=== PATIENT | female | born 1955 | race African-American/Black ===

== ENCOUNTER 2016-12-08 18:35 | Emergency (ER) | payer OTHER ==
[~2016-12-08] VITALS: Ht 162.6 cm; Wt 68.0 kg
[~2016-12-08 18:35] MED LIST: ACETAMINOPHEN-1 EAC1 ORAL; ALBUTEROL SULF8.5 GM INH; ASPIRIN325 MG ORAL; AZITHROMYCIN250 MG ORAL; DIOVAN HCT 3201 EAC1 ORAL; FUROSEMIDE80 MG ORAL; PREDNISONE20 MG ORAL
[2016-12-08] MEDS ORDERED: HYDROmorphone 1mg/ml Carpuject IVP ONE ×2 (20:00→21:45)
[2016-12-08 21:25] LABS: BASOPHILS % (AUTO) 1.7 % (0.0-2.0); EOSINOPHILS % (AUTO) 0.6 % (0.0-3.0); LYMPHOCYTES % (AUTO) 29.5 % (20.0-45.0); MEAN CORPUSCULAR HGB CONC 31.6 G/DL (32.0-36.0); MEAN CORPUSCULAR VOLUME 73 FL (80-99); MEAN PLATELET VOLUME 6.4 FL (6.5-10.1); MONOCYTES % (AUTO) 5.2 % (1.0-10.0); PLATELET COUNT 414 K/UL (150-450); RED BLOOD COUNT 4.92 M/UL (4.20-5.40); RED CELL DISTRIBUTION WIDTH 17.3 % (11.6-14.8); WHITE BLOOD COUNT 9.7 K/UL (4.8-10.8)
[2016-12-08 21:44] LABS: ALANINE AMINOTRANSFERASE 29 U/L (3-33); ALBUMIN/GLOBULIN RATIO 1.1 (1.0-2.7); ANION GAP 12 (5-15); ASPARTATE AMINO TRANSFERASE 21 U/L (5-40); CALCIUM 8.7 mg/dL (8.6-10.2); CARBON DIOXIDE 26 mEQ/L (20-30); CHLORIDE 104 mEQ/L (98-107); CREATININE 0.9 mg/dL (0.5-0.9); GLOMERULAR FILTRATION RATE > 60 mL/min (>60); HEMOLYSIS 3; POTASSIUM 4.5 mEQ/L (3.4-4.9); SODIUM 142 mEQ/L (135-145); TOTAL PROTEIN 6.6 g/dL (6.6-8.7)
[2016-12-08] MEDS ORDERED: MAG-OX 400400 MG ORAL (22:27)
[2016-12-08] MEDS ORDERED: ACETAMINOPHEN325 M3 PO (22:27)
[2016-12-08] MEDS ORDERED: COZAAR50 MG ORAL (22:27)
[2016-12-08] MEDS ORDERED: OXYCODONE HCL10 MG ORAL (22:27)
[2016-12-08] MEDS ORDERED: PROTONIX40 MG ORAL (22:27)
[2016-12-08] MEDS ORDERED: GABAPENTIN300 MG ORAL (22:27)
[2016-12-08] MEDS ORDERED: MIRALAX17 G2 ORAL (22:27)
[2016-12-08] MEDS ORDERED: LIPITOR40 MG ORAL (22:32)
[2016-12-08] MEDS ORDERED: ATIVAN0.5 MG ORAL (22:32)
[2016-12-08] MEDS ORDERED: BACLOFEN10 MG ORAL (22:32)
[2016-12-08] MEDS ORDERED: BUDESONIDE0.5 MG/2 M IH (22:32)
[2016-12-08] MEDS ORDERED: DOXAZOSIN MESYLA1 MG ORAL (22:32)
[2016-12-08] MEDS ORDERED: FERROUS SULFAT325 MG ORAL (22:32)
[2016-12-08] MEDS ORDERED: DILAUDID 22 MG/1 M1 IM (22:32)
[2016-12-08] MEDS ORDERED: DUONEB 0.5-3(2.53 ML HHN (22:32)
[2016-12-08] MEDS ORDERED: CYCLOBENZAPRINE10 MG ORAL (22:32)
[2016-12-08] MEDS ORDERED: ASPIR 8181 MG ORAL (22:32)
[2016-12-08] MEDS ORDERED: LACTULOSE20 GM/301 ORAL (22:32)
[2016-12-08] MEDS ORDERED: BENADRYL25 MG ORAL (22:32)
[2016-12-08] MEDS ORDERED: DOCUSATE SODIU250 MG ORAL (22:32)
--- NOTE | 2016-12-08 23:03 | Emergency Room Report ---
History of Present Illness General Chief Complaint: Lower Extremity Injury Source: Patient Present Illness HPI 61-year-old female presents ED for evaluation. Patient sent from group home facility. PMD requested patient get MRI of her right lower extremity and right hip. Patient has chronic pain on the right leg unresponsive to pain medications. Patient states she had a fall 2 weeks ago. Patient states she's had multiple surgeries to her neck and back. Pain is a 10 out of 10, nonradiating, sharp. Unable to bear weight. PMD also requested for patient get PICC line removed. Patient has PICC line in her right chest. Patient states she is a hard stick. Needed for antibiotics. Patient states she was unaware that the PICC line would be removed today. Patient is refusing PICC line removal. Denies chest pain or shortness of breath. Denies fevers chills. No other aggravating relieving factors. Denies any other associated symptoms Allergies: Coded Allergies: MORPHINE (Verified Allergy, Intermediate, 07/23/13) Uncoded Allergies: pcn (Adverse Reaction, Mild, 07/23/13) Patient History Past Medical History: CHF Past Surgical History: other - neck and back surgery Pertinent Family History: none Social History: Denies: alcohol use, drug use, smoking Now: No Immunizations: UTD Reviewed Nursing 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: PMH: Agreed, PSxH: Agreed Nursing 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-PMH Hx Cardiac Problems: Yes - CHF Hx Hypertension: Yes - Recent neck and back surgery. Hx COPD: Yes Hx Gastrointestinal Problems: Yes - GERD History Of Psychiatric Problem: Yes - Anxiety Hx Cerebrovascular Accident: Yes Review of Systems All Other Systems: negative except mentioned in HPI Physical Exam Vital Signs Date Time Temp Pulse Resp B/P Pulse Ox O2 Delivery O2 Flow Rate FiO2 12/08/16 18:47 97.9 95 20 138/93 97 Room Air Sp02 EP Interpretation: reviewed, normal General Appearance: no apparent distress, alert, GCS 15, non-toxic Head: normocephalic Eyes: bilateral eye PERRL, bilateral eye normal inspection ENT: normal ENT inspection Neck: normal inspection Respiratory: chest non-tender, lungs clear, normal breath sounds, speaking full sentences, other - PICC Line R chest Cardiovascular #1: regular rate, rhythm, no edema Gastrointestinal: normal inspection Rectal: deferred Genitourinary: no CVA tenderness Musculoskeletal: tender - R hip Neurologic: alert, oriented x3, responsive, motor strength/tone normal, sensory intact, speech normal Psychiatric: judgement/insight normal, memory normal, mood/affect normal, no suicidal/homicidal ideation Skin: normal inspection Lymphatic: normal inspection Medical Decision Making Diagnostic Impression: Primary Impression: Drug-seeking behavior Additional Impression: Chronic pain Qualified Codes: G89.29 - Other chronic pain ER Course 61-year-old female sent here for MRI of the right hip right leg and right knee. Sent here to have PICC line removed. From group home facility Differential-fracture, dislocation, chronic pain, opioid dependence Patient placed on stretcher. After initial history, physical exam reveals a middle-aged female in mild distress. Patient has pain out of proportion to physical exam to the right leg and right hip. There is no crepitus. There is full range of motion. Patient states that she is getting Dilaudid at the facility without relief. Patient is refusing PICC line removal. Stating that she has a hard stick. states she needs it for antibiotics. I cannot remove PICC line without her consent we cannot facilitate MRI at this time of day. Patient was sent here in the evening. There is no reason for an emergent MRI at this time given that patient 's pain is chronic for weeks. CT of Pelvis and xray of R femur shows chronic issues but nothing acute I explained this to the group home. intermediate states that they are uncomfortable accepting the patient if she keeps the PICC line. We are unable to contact the PMD. After several hours the nurse practitioner for the physician contacted us. He is aware that we are not able to pull the PICC line and that MRI is unavailable at this time. No reason for admission. He agrees that patient can go back to the facility Patient required multiple rounds of pain medication but is still requesting more. Patient is clearly in opioid dependence Diagnosis-drug seeking behavior, chronic pain Stable and discharged to the group home facility. Followup with PMD. Return to ED if symptoms recur or worsen Labs Test 12/08/16 21:15 White Blood Count 9.7 K/UL (4.8-10.8) Red Blood Count 4.92 M/UL (4.20-5.40) Hemoglobin 11.3 G/DL (12.0-16.0) Hematocrit 35.9 % (37.0-47.0) Mean Corpuscular Volume 73 FL (80-99) Mean Corpuscular Hemoglobin 23.0 PG (27.0-31.0) Mean Corpuscular Hemoglobin Concent 31.6 G/DL (32.0-36.0) Red Cell Distribution Width 17.3 % (11.6-14.8) Platelet Count 414 K/UL (150-450) Mean Platelet Volume 6.4 FL (6.5-10.1) Neutrophils (%) (Auto) 63.0 % (45.0-75.0) Lymphocytes (%) (Auto) 29.5 % (20.0-45.0) Monocytes (%) (Auto) 5.2 % (1.0-10.0) Eosinophils (%) (Auto) 0.6 % (0.0-3.0) Basophils (%) (Auto) 1.7 % (0.0-2.0) Sodium Level 142 mEQ/L (135-145) Potassium Level 4.5 mEQ/L (3.4-4.9) Chloride Level 104 mEQ/L (98-107) Carbon Dioxide Level 26 mEQ/L (20-30) Anion Gap 12 (5-15) Blood Urea Nitrogen 24 mg/dL (7-23) Creatinine 0.9 mg/dL (0.5-0.9) Estimat Glomerular Filtration Rate > 60 mL/min (>60) Glucose Level 105 mg/dL (74-106) Calcium Level 8.7 mg/dL (8.6-10.2) Total Bilirubin 0.2 mg/dL (0.0-1.2) Aspartate Amino Transf (AST/SGOT) 21 U/L (5-40) Alanine Aminotransferase (ALT/SGPT) 29 U/L (3-33) Alkaline Phosphatase 69 U/L (35-104) Total Protein 6.6 g/dL (6.6-8.7) Albumin 3.5 g/dL (3.5-5.2) Globulin 3.1 g/dL Albumin/Globulin Ratio 1.1 (1.0-2.7) Other X-Ray Diagnostic Results Other X-Ray Diagnostic Results : X-Ray ordered: R femur # of Views/Limited Vs Complete: 3 View Indication: Pain EP Interpretation: Yes Interpretation: no dislocation, no soft tissue swelling, no fractures Impression: No acute disease Interpreting ER Provider: electronically signed by Jelani Loja MD CT/MRI/US Diagnostic Results CT/MRI/US Diagnostic Results : Imaging Test Ordered: CT Pelvis Impression no acute fx. chronic changes Last Vital Signs Date Time Temp Pulse Resp B/P Pulse Ox O2 Delivery O2 Flow Rate FiO2 12/08/16 20:40 97.8 12/08/16 18:47 95 20 138/93 97 Room Air Status: improved Disposition: HOME, SELF-CARE Condition: Stable Referrals: [facility] (PCP) JELANI LOJA M.D. Dec 08, 2016 23:03
[2016-12-09 00:04] VITALS: BP 130/80
--- NOTE | 2016-12-09 09:32 | Diagnostic Imaging Report ---
Indication: PAIN fall 2 weeks ago Technique: Noncontrast spiral acquisitions obtained through the pelvis. Multiplanar reconstructions generated. Total dose length product 386 mGycm. CTDIvol(s) 13 mGy. Dose reduction achieved using automated exposure control Comparison: None Findings: There is marked deformity of the right femoral head, with considerable flattening. There is lateral subluxation of the femoral head, and near complete obliteration of the superior joint space. There is associated deformity and irregularity of the acetabulum as well as. Extensive subchondral cysts are demonstrated. There is considerable heterotopic new bone surrounding the femoral head and occupying much of the joint space. There is evidence of extensive prior lumbosacral spinal surgery. No acute fractures. No dislocations. The included pelvic viscera are unremarkable. No significant soft tissue contusion is evident. There is diastasis of the rectus abdominis tendon incidentally noted. Impression: No acute bony trauma Extensive chronic deformity of the right hip, as described. This may be on the basis of prior avascular necrosis, severe chronic degenerative change, or prior trauma. Evidence of extensive prior lumbosacral surgery This agrees with the preliminary interpretation provided overnight by Dr. Tamez The CT scanner at [facility] is accredited by the [employer] and the scans are performed using protocols designed to limit radiation exposure to as low as reasonably achievable to attain images of sufficient resolution adequate for diagnostic evaluation.
--- NOTE | 2016-12-09 13:35 | Diagnostic Imaging Report ---
Indications: PAIN Technique: Two views of the right femur Comparison: None Findings: There is extensive chronic deformity of the right acetabulum. No acute fractures. No dislocations. There are vascular calcifications. Surgical hardware seen in the pelvis. Impression: No acute process
== END 2016-12-09 00:15 ==
LOC: EDUNIT# 18:35 → EDBD 18:35 → EMR 19:10 → CANBEDREQ 23:14 → EMR 12-09 00:15
DX: Z76.5 Malingerer [conscious simulation] (principal); G89.29 Other chronic pain; M25.551 Pain in right hip; M25.561 Pain in right knee; J44.9 Chronic obstructive pulmonary disease, unspecified; I10 Essential (primary) hypertension; I50.9 Heart failure, unspecified; Z86.73 Personal history of transient ischemic attack (TIA), and cerebral infarction without residual deficits; F41.9 Anxiety disorder, unspecified; K21.9 Gastro-esophageal reflux disease without esophagitis; Z88.0 Allergy status to penicillin; Z88.6 Allergy status to analgesic agent
CPT/HCPCS: 36415; 72192; 73552; 80053; 85025; 96374; 96375; 99284; J1170

== ENCOUNTER 2017-10-05 18:19 | Emergency (ER) | payer OTHER ==
[~2017-10-05] VITALS: Ht 157.5 cm; Wt 68.0 kg
[~2017-10-05 18:19] MED LIST changes: +ACETAMINOPHEN325 M3 PO; +ASPIR 8181 MG ORAL; +ATIVAN0.5 MG ORAL; +BACLOFEN10 MG ORAL; +BENADRYL25 MG ORAL; +BUDESONIDE0.5 MG/2 M IH; +COZAAR50 MG ORAL; +CYCLOBENZAPRINE10 MG ORAL; +DILAUDID 22 MG/1 M1 IM; +DOCUSATE SODIU250 MG ORAL; +DOXAZOSIN MESYLA1 MG ORAL; +DUONEB 0.5-3(2.53 ML HHN; +FERROUS SULFAT325 MG ORAL; +GABAPENTIN300 MG ORAL; +LACTULOSE20 GM/301 ORAL; +LIPITOR40 MG ORAL; +MAG-OX 400400 MG ORAL; +MIRALAX17 G2 ORAL; +OXYCODONE HCL10 MG ORAL; +PROTONIX40 MG ORAL
[2017-10-05] MEDS ORDERED: AMLODIPINE BESY10 MG ORAL (18:26)
[2017-10-05] MEDS ORDERED: RESTORIL15 MG ORAL (18:26)
--- NOTE | 2017-10-05 18:39 | Emergency Room Report ---
History of Present Illness General Chief Complaint: Chest Pain Source: Patient, Medical Record Present Illness HPI 62-year-old female, history of COPD,, p/w SOB and chest pain for 1 days. Patient states SOB began when at home. SOB occurs both at rest and on exertion. States that she does not have a nebulizer at home. No recent steroid use.\ Denies fever, chills. Denies sick contacts or recent travel. Denies any history of intubations Denies history of PE/DVT, no recent surgeries, prolonged immobilization Never had an angiogram, has had a negative stress test but cannot tell when Allergies: Coded Allergies: MORPHINE (Verified Allergy, Intermediate, 07/23/13) PENICILLINS (Unverified Allergy, Unknown, 10/05/17) Uncoded Allergies: pcn (Adverse Reaction, Mild, 07/23/13) Patient History Past Medical History: see triage record Past Surgical History: none Pertinent Family History: none Reviewed Nursing 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: PMH: Agreed; PSxH: Agreed Nursing 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-PMH Past Medical History: No History, Except For Hx Cardiac Problems: Yes - CHF Hx Hypertension: Yes - Recent neck and back surgery. Hx COPD: Yes Hx Gastrointestinal Problems: Yes - GERD Hx Cerebrovascular Accident: Yes Review of Systems All Other Systems: negative except mentioned in HPI Physical Exam Vital Signs Date Time Temp Pulse Resp B/P (MAP) Pulse Ox O2 Delivery O2 Flow Rate FiO2 10/05/17 18:17 99.5 88 18 133/82 97 Nasal Cannula 3.0 99.5 Sp02 EP Interpretation: reviewed, normal General Appearance: alert, GCS 15, non-toxic, moderate distress Head: normocephalic, atraumatic Eyes: bilateral eye normal inspection, bilateral eye PERRL, bilateral eye EOMI ENT: normal ENT inspection, normal pharynx, normal voice, moist mucus membranes Neck: normal inspection, full range of motion, supple Respiratory: respiratory distress, wheezing, expiration Cardiovascular #1: normal inspection, regular rate, rhythm, no edema, normal capillary refill Cardiovascular #2: 2+ radial (R), 2+ radial (L) Gastrointestinal: normal inspection, non tender, soft, non-distended, no guarding Musculoskeletal: normal inspection, back normal, normal range of motion, non- tender Neurologic: normal inspection, alert, oriented x3, responsive, motor strength/ tone normal, sensory intact, normal gait, speech normal Psychiatric: normal inspection, judgement/insight normal, memory normal Skin: normal inspection, normal color, no rash, warm/dry, well hydrated, normal turgor Medical Decision Making Diagnostic Impression: Primary Impression: COPD exacerbation ER Course 62-year-old female with pmhx of COPD p/w SOB and shortness of breath DDX: COPD exacerbation, ACS, pneumonia Plan: IV access, youth nutritional monitor, O2 nasal cannula, EKG, CXR obtain basic labs including blood gas, troponin, Duonebs, steroids ER Course: Patient's respiratory status has been closely monitored in the ED. Patient has been treated with combivent x 3, steroids Patient improved greatly with nebulizer, unable to obtain IV access line, by mouth steroids given. She is now speaking in complete sentences, vital signs are stable And continually asking for pain medication, states that she only takes Dilaudid and Benadryl. I told the patient that we are unable to give this medications as there is a shortage, and patient is not in severe distress to require that stronger pain medication. I was uncomfortable to give her multiple rounds of morphine. She is nontoxic-appearing Repeat lung examination, no wheezing Disposition: Discharged home with PCP follow-up, given albuterol inhaler nebulizer and steroids Please note that this Emergency Department Report was dictated using [employer] technology software, occasionally this can lead to erroneous entry secondary to interpretation by the dictation equipment. EKG Diagnostic Results EP Interpretation: Yes Rate: normal Rhythm: NSR ST Segments: No acute changes ASA given to patient: No Rhythm Strip EP Interpretation: Yes Rate: 70 Rhythm: NSR, no PVCs, no ectopy Chest X-ray CXR: Ordered: Yes 1 view Indication: SOB EP interpretation: Yes Interpretation: No consolidation, no effusion, no PTX, no acute cardiopulmonary disease Impression: No acute disease Electronically signed by Rossy Venegas MD Laboratory Tests Test 10/05/17 18:49 White Blood Count 10.3 K/UL (4.8-10.8) Red Blood Count 5.42 M/UL (4.20-5.40) H Hemoglobin 11.6 G/DL (12.0-16.0) L Hematocrit 38.8 % (37.0-47.0) Mean Corpuscular Volume 72 FL (80-99) L Mean Corpuscular Hemoglobin 21.3 PG (27.0-31.0) L Mean Corpuscular Hemoglobin Concent 29.8 G/DL (32.0-36.0) L Red Cell Distribution Width 17.3 % (11.6-14.8) H Platelet Count 257 K/UL (150-450) Mean Platelet Volume 6.6 FL (6.5-10.1) Neutrophils (%) (Auto) 65.4 % (45.0-75.0) Lymphocytes (%) (Auto) 25.5 % (20.0-45.0) Monocytes (%) (Auto) 5.5 % (1.0-10.0) Eosinophils (%) (Auto) 2.2 % (0.0-3.0) Basophils (%) (Auto) 1.5 % (0.0-2.0) Sodium Level 140 MMOL/L (136-145) Potassium Level 3.7 MMOL/L (3.5-5.1) Chloride Level 105 MMOL/L (98-107) Carbon Dioxide Level 26 MMOL/L (21-32) Anion Gap 9 mmol/L (5-15) Blood Urea Nitrogen 11 mg/dL (7-18) Creatinine 0.8 MG/DL (0.55-1.30) Estimate Glomerular Filtration Rate > 60 mL/min (>60) Glucose Level 117 MG/DL (74-106) H Calcium Level 9.1 MG/DL (8.5-10.1) Total Bilirubin 0.3 MG/DL (0.2-1.0) Aspartate Amino Transferase (AST) 10 U/L (15-37) L Alanine Aminotransferase (ALT) 18 U/L (12-78) Alkaline Phosphatase 81 U/L (46-116) Troponin I 0.000 ng/mL (0.000-0.056) Pro-B-Type Natriuretic Peptide 24 pg/mL (0-125) Total Protein 8.2 G/DL (6.4-8.2) Albumin 3.4 G/DL (3.4-5.0) Globulin 4.8 g/dL Albumin/Globulin Ratio 0.7 (1.0-2.7) L Last Vital Signs Date Time Temp Pulse Resp B/P (MAP) Pulse Ox O2 Delivery O2 Flow Rate FiO2 10/05/17 18:28 88 18 Nasal Cannula 3.0 10/05/17 18:17 99.5 133/82 97 99.5 Disposition: HOME, SELF-CARE Condition: Improved Scripts Albuterol Sulfate* (ALBUTEROL SULFATE HHN*) 2.5 Mg/3 Ml Vial.neb 2.5 MG HHN Q4H PRN for Shortness of Breath, #25 VIAL Prov: Rossy Venegas M.D. 10/05/17 Nebulizer (Compact Compressor Nebulizer) 1 Each Each EA , #1 Prov: Rossy Venegas M.D. 10/05/17 Albuterol Sulfate* (ALBUTEROL SULFATE MDI*) 8.5 Gm Hfa.aer.ad 2 PUFF INH Q4H PRN for cough/wheezing, #1 EA 0 Refills Prov: Rossy Venegas M.D. 10/05/17 Prednisone* (PREDNISONE*) 20 Mg Tablet 40 MG ORAL DAILY for 5 Days, #10 TAB Prov: Rossy Venegas M.D. 10/05/17 Rossy Venegas M.D. October 05, 2017 18:39
[2017-10-05] MEDS ORDERED: Solu-MEDROL 125mg Inj IVP ONE (18:45)
[2017-10-05] MEDS: Albuterol ud Inhalation HHN SCH ×5 (18:46→20:15)
[2017-10-05] MEDS: Ipratropium 0.02% Inh Soln 2.5ml UD HHN SCH ×5 (18:46→20:15)
[2017-10-05 19:13] LABS: BASOPHILS % (AUTO) 1.5 % (0.0-2.0); EOSINOPHILS % (AUTO) 2.2 % (0.0-3.0); HEMATOCRIT 38.8 % (37.0-47.0); HEMOGLOBIN 11.6 G/DL (12.0-16.0); LYMPHOCYTES % (AUTO) 25.5 % (20.0-45.0); MEAN CORPUSCULAR VOLUME 72 FL (80-99); MONOCYTES % (AUTO) 5.5 % (1.0-10.0); NEUTROPHILS % (AUTO) 65.4 % (45.0-75.0); PLATELET COUNT 257 K/UL (150-450); RED BLOOD COUNT 5.42 M/UL (4.20-5.40); RED CELL DISTRIBUTION WIDTH 17.3 % (11.6-14.8); WHITE BLOOD COUNT 10.3 K/UL (4.8-10.8)
[2017-10-05] MEDS ORDERED: Azithromycin 500 MG in NS 275 ML IV ONE (19:15)
[2017-10-05 19:35] LABS: ALANINE AMINOTRANSFERASE 18 U/L (12-78); ALBUMIN 3.4 G/DL (3.4-5.0); ALBUMIN/GLOBULIN RATIO 0.7 (1.0-2.7); ALKALINE PHOSPHATASE 81 U/L (46-116); ANION GAP 9 mmol/L (5-15); ASPARTATE AMINO TRANSFERASE 10 U/L (15-37); BILIRUBIN,TOTAL 0.3 MG/DL (0.2-1.0); BLOOD UREA NITROGEN 11 mg/dL (7-18); CALCIUM 9.1 MG/DL (8.5-10.1); CARBON DIOXIDE 26 MMOL/L (21-32); CHLORIDE 105 MMOL/L (98-107); CREATININE 0.8 MG/DL (0.55-1.30); POTASSIUM 3.7 MMOL/L (3.5-5.1); SODIUM 140 MMOL/L (136-145)
[2017-10-05 20:00] VITALS: BP 116/60
[2017-10-05] MEDS ORDERED: Morphine Sulfate 4mg/ml Inj IM ONE (20:15)
[2017-10-05] MEDS ORDERED: DiphenhydrAMINE 50mg/ml Inj IM ONE (20:15)
[2017-10-05] MEDS ORDERED: ALBUTEROL SULF8.5 GM INH (20:41)
[2017-10-05] MEDS ORDERED: ALBUTEROL2.5 MG/3 M HHN (20:41)
[2017-10-05] MEDS ORDERED: COMPACT COMPRE1 EACH MC (20:41)
[2017-10-05] MEDS ORDERED: PREDNISONE20 MG ORAL (20:41)
[2017-10-05 22:00] VITALS: BP 116/66
[2017-10-05 22:30] VITALS: BP 116/60
--- NOTE | 2017-10-06 11:55 | Diagnostic Imaging Report ---
Indication: Chest pain Technique: XRAY Chest 1v Comparison: 10/13/2014 Findings: Trachea is rotated to the left. Slight haziness of the right lung field likely artifactual and related to patient rotation. Heart size and mediastinal contours are likely stable allowing for differences in patient positioning. Question mild peribronchial thickening. There is no definite focal airspace consolidation, pleural effusion or pneumothorax. There are degenerative changes of the spine. Cervical hardware x-ray visualized. Impression: Haziness of the right lung field likely artifactual due to patient rotation. Fashion mild peribronchial thickening possibly suggesting small airway disease. No definite focal airspace consolidation, pleural effusion or pneumothorax.
--- NOTE | 2017-10-06 16:23 | Cardiology Report ---
APPROVED REPORT EKG Measurement Heart [id number] Normal sinus rhythm Left axis deviation Low voltage QRS Nonspecific T wave abnormality Prolonged QT Abnormal ECG
== END 2017-10-05 22:49 | disposition home or self-care (01) ==
LOC: EDBD 18:19 → EMR 19:49 → CANBEDREQ 21:12 → EMR 22:49
DX: J44.1 Chronic obstructive pulmonary disease with (acute) exacerbation (principal); Z88.0 Allergy status to penicillin; Z88.5 Allergy status to narcotic agent; I10 Essential (primary) hypertension; K21.9 Gastro-esophageal reflux disease without esophagitis
CPT/HCPCS: 36415; 71045; 80053; 83880; 84484; 85025; 93005; 94640; 94664; 96372; 99284; J1200; J2270; J7512

== ENCOUNTER 2017-11-04 20:37 | Emergency (ER) | payer OTHER ==
[~2017-11-04] VITALS: Ht 162.6 cm; Wt 68.0 kg
[~2017-11-04 20:37] MED LIST changes: +ALBUTEROL2.5 MG/3 M HHN; +AMLODIPINE BESY10 MG ORAL; +COMPACT COMPRE1 EACH MC; +RESTORIL15 MG ORAL
[2017-11-04] MEDS ORDERED: MULTIVITAMINS1 EAC2 ORAL (20:58)
[2017-11-04] MEDS ORDERED: NITROSTAT0.4 M1 SL (20:58)
[2017-11-04] MEDS ORDERED: NORCO 10-325 T1 EACH ORAL (20:58)
[2017-11-04] MEDS ORDERED: ACETAMINOPHEN325 M1 ORAL (20:58)
--- NOTE | 2017-11-04 20:58 | Emergency Room Report ---
History of Present Illness General Chief Complaint: Chest Pain Source: Patient, Medical Record Present Illness HPI Patient is a 62-year-old female presented after increased chest tightness. Patient had gradual onset of symptoms over the past few hours. Patient prior history of COPD. She had been out of her medications. Patient denies taking any anticoagulation. Patient is currently wheelchair bound after a CVA. Patient had previous back surgery approximately 6 months ago. She reports having increased chest discomfort which she describes a chest tightness. She reports as being 8 out of 10. The pain is not changed with breathing. She denies any fever. The patient reports having prior history of cardiac disease and prior myocardial infarction. Allergies: Coded Allergies: MORPHINE (Verified Allergy, Intermediate, 07/23/13) PENICILLINS (Unverified Allergy, Unknown, 10/05/17) Uncoded Allergies: pcn (Adverse Reaction, Mild, 07/23/13) Patient History Past Medical History: see triage record Last Menstrual Period: NA Now: No Reviewed Nursing 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: PMH: Agreed; PSxH: Agreed Nursing 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-PMH Hx Cardiac Problems: Yes - CHF, hyperlipidemia, Hx Hypertension: Yes - Recent neck and back surgery. Hx COPD: Yes Hx Gastrointestinal Problems: Yes - GERD, constipation, edema Hx Cerebrovascular Accident: Yes - hemiplegia, hemiparesis Review of Systems All Other Systems: negative except mentioned in HPI Physical Exam Vital Signs Date Time Temp Pulse Resp B/P (MAP) Pulse Ox O2 Delivery O2 Flow Rate FiO2 11/04/17 20:38 97.8 90 18 115/88 98 Room Air 97.9 Sp02 EP Interpretation: reviewed, normal General Appearance: normal inspection, well appearing, no apparent distress, alert, GCS 15, non-toxic, Chronically Ill Head: atraumatic ENT: normal ENT inspection, hearing grossly normal, normal voice Neck: normal inspection, full range of motion, supple, no bony tend Respiratory: normal inspection, no respiratory distress, no retraction, rales, rhonchi, wheezing Cardiovascular #1: regular rate, rhythm, edema - left side Gastrointestinal: normal inspection, normal bowel sounds, non tender, soft, no guarding, no hernia Genitourinary: no CVA tenderness Musculoskeletal: normal inspection, back normal, normal range of motion Neurologic: normal inspection, alert, responsive, speech normal, motor weakness - right lower extremity Psychiatric: normal inspection, judgement/insight normal, mood/affect normal Skin: normal inspection, normal color, no rash Medical Decision Making Diagnostic Impression: Primary Impression: Chest pain Additional Impressions: Uncontrolled diabetes mellitus Chronic pain ER Course Patient presented for chest pain. Differential diagnosis included but was not limited to acute coronary syndrome, pulmonary embolism, pneumonia, aortic dissection, shingles, pneumothorax, aortic dissection, esophageal rupture, pericarditis. Because of complexity of patient's case laboratory testing and imaging studies were ordered.Patient was noted to have increased chest discomfort.The patient's initial troponin was negative. Patient's initial blood sugar was noted to be markedly elevated. Patient was given IV fluids as well as IV insulin.Patient was given IV fluids and subcutaneous insulin. She was given morphine for pain. Dr. Iman Castro contacted for transfer to [facility] and he agreed to accept the patient Labs Test 11/04/17 21:50 White Blood Count 7.3 K/UL (4.8-10.8) Red Blood Count 5.94 M/UL (4.20-5.40) Hemoglobin 12.7 G/DL (12.0-16.0) Hematocrit 42.0 % (37.0-47.0) Mean Corpuscular Volume 71 FL (80-99) Mean Corpuscular Hemoglobin 21.5 PG (27.0-31.0) Mean Corpuscular Hemoglobin Concent 30.4 G/DL (32.0-36.0) Red Cell Distribution Width 17.0 % (11.6-14.8) Platelet Count 140 K/UL (150-450) Mean Platelet Volume 7.8 FL (6.5-10.1) Neutrophils (%) (Auto) 62.2 % (45.0-75.0) Lymphocytes (%) (Auto) 29.3 % (20.0-45.0) Monocytes (%) (Auto) 6.4 % (1.0-10.0) Eosinophils (%) (Auto) 1.3 % (0.0-3.0) Basophils (%) (Auto) 0.7 % (0.0-2.0) Prothrombin Time 9.7 SEC (9.30-11.50) Prothromb Time International Ratio 0.9 (0.9-1.1) Activated Partial Thromboplast Time 23 SEC (23-33) Sodium Level 131 MMOL/L (136-145) Potassium Level 4.7 MMOL/L (3.5-5.1) Chloride Level 95 MMOL/L (98-107) Carbon Dioxide Level 19 MMOL/L (21-32) Anion Gap 17 mmol/L (5-15) Blood Urea Nitrogen 19 mg/dL (7-18) Creatinine 1.2 MG/DL (0.55-1.30) Estimat Glomerular Filtration Rate 55.1 mL/min (>60) Glucose Level 846 MG/DL (74-106) Calcium Level 9.4 MG/DL (8.5-10.1) Total Bilirubin 0.4 MG/DL (0.2-1.0) Aspartate Amino Transf (AST/SGOT) 11 U/L (15-37) Alanine Aminotransferase (ALT/SGPT) 23 U/L (12-78) Alkaline Phosphatase 104 U/L (46-116) Total Creatine Kinase 50 U/L (26-308) Creatine Kinase MB 3.8 NG/ML (0.0-3.6) Creatine Kinase MB Relative Index 7.6 Troponin I 0.015 ng/mL (0.000-0.056) C-Reactive Protein, Quantitative 3.5 mg/dL (0.00-0.90) Pro-B-Type Natriuretic Peptide 208 pg/mL (0-125) Total Protein 7.4 G/DL (6.4-8.2) Albumin 3.2 G/DL (3.4-5.0) Globulin 4.2 g/dL Albumin/Globulin Ratio 0.8 (1.0-2.7) Lipase 192 U/L (73-393) EKG Diagnostic Results Rate: normal - 89 Rhythm: NSR ST Segments: no acute changes Chest X-Ray Diagnostic Results Chest X-Ray Diagnostic Results : Chest X-Ray Ordered: Yes # of Views/Limited/Complete: 1 View Indication: Chest Pain EP Interpretation: Yes Interpretation: no consolidation, no effusion, no pneumothorax, other - left side infiltrate Impression: No acute disease Last Vital Signs Date Time Temp Pulse Resp B/P (MAP) Pulse Ox O2 Delivery O2 Flow Rate FiO2 11/04/17 20:38 97.8 90 18 115/88 98 Room Air 97.9 Status: improved Disposition: XFER SHT-TRM HOSP Condition: Serious Referrals: [facility],REFERRING (PCP) Jass Gonzalez MD Nov 04, 2017 20:58
[2017-11-04] MEDS ORDERED: Isovue-370 150ml vial INJ PRN (21:00)
[2017-11-04] MEDS ORDERED: Solu-MEDROL 125mg Inj IVP ONE (21:00)
[2017-11-04] MEDS ORDERED: Aspirin Baby 81mg ORAL ONE (21:00)
[2017-11-04] MEDS: Albuterol/Ipratropium 3ml neb HHN SCH ×3 (21:08→21:27)
[2017-11-04] MEDS ORDERED: DiphenhydrAMINE 50mg/ml Inj IVP ONE (21:30)
[2017-11-04] MEDS ORDERED: Morphine Sulfate 4mg/ml Inj IVP ONE (21:30)
[2017-11-04 22:11] LABS: BASOPHILS % (AUTO) 0.7 % (0.0-2.0); EOSINOPHILS % (AUTO) 1.3 % (0.0-3.0); HEMOGLOBIN 12.7 G/DL (12.0-16.0); LYMPHOCYTES % (AUTO) 29.3 % (20.0-45.0); MEAN CORPUSCULAR VOLUME 71 FL (80-99); MONOCYTES % (AUTO) 6.4 % (1.0-10.0); NEUTROPHILS % (AUTO) 62.2 % (45.0-75.0); PLATELET COUNT 140 K/UL (150-450); RED BLOOD COUNT 5.94 M/UL (4.20-5.40); WHITE BLOOD COUNT 7.3 K/UL (4.8-10.8)
[2017-11-04 22:23] LABS: INR 0.9 (0.9-1.1)
[2017-11-04 22:27] LABS: ANION GAP 17 mmol/L (5-15); BLOOD UREA NITROGEN 19 mg/dL (7-18); CALCIUM 9.4 MG/DL (8.5-10.1); CARBON DIOXIDE 19 MMOL/L (21-32); CHLORIDE 95 MMOL/L (98-107); CREATININE 1.2 MG/DL (0.55-1.30); POTASSIUM 4.7 MMOL/L (3.5-5.1); SODIUM 131 MMOL/L (136-145)
[2017-11-04 22:38] LABS: ALANINE AMINOTRANSFERASE 23 U/L (12-78); ALBUMIN 3.2 G/DL (3.4-5.0); ALBUMIN/GLOBULIN RATIO 0.8 (1.0-2.7); ALKALINE PHOSPHATASE 104 U/L (46-116); ASPARTATE AMINO TRANSFERASE 11 U/L (15-37); BILIRUBIN,TOTAL 0.4 MG/DL (0.2-1.0); CKMB 3.8 NG/ML (0.0-3.6); CREATINE KINASE 50 U/L (26-308)
[2017-11-04] MEDS ORDERED: Insulin Human Regular 100units/ml 3ml IV ONE (22:45)
[2017-11-04 22:50] VITALS: BP 119/52
[2017-11-04] MEDS ORDERED: Lidocaine 1% Plain 30 ml INJ ONE (23:12)
[2017-11-04] MEDS ORDERED: Morphine Sulfate 4mg/ml Inj IM ONE (23:45)
[2017-11-05] MEDS ORDERED: DiphenhydrAMINE 50mg/ml Inj ONE (00:04)
[2017-11-05] MEDS ORDERED: Solu-MEDROL 125mg Inj ONE (00:04)
[2017-11-05 00:28] VITALS: BP 131/61
[2017-11-05] MEDS ORDERED: Insulin Human Regular 100units/ml 3ml SUBQ ONE ×2 (01:15→06:00)
[2017-11-05] MEDS ORDERED: Morphine Sulfate 4mg/ml Inj IVP ONE ×2 (01:30→04:15)
[2017-11-05] MEDS ORDERED: Sodium Chloride 500ML 500 ML IV ONE (01:30)
[2017-11-05 02:25] VITALS: BP 132/68
[2017-11-05 04:09] VITALS: BP 113/64
[2017-11-05 06:23] VITALS: BP 113/67
[2017-11-05] MEDS ORDERED: Insulin Human Regular 100units/ml 3ml IV ONE (06:30)
[2017-11-05] MEDS ORDERED: Lidocaine 1% Plain 30 ml INJ ONE (07:00)
[2017-11-05] MEDS ORDERED: Heparin 2000 units/Ns 1000ml INJ ONE (07:00)
[2017-11-05 07:30] VITALS: BP 113/67
--- NOTE | 2017-11-05 12:29 | Diagnostic Imaging Report ---
Indication: Chest pain Comparison: 11/04/2017 A single view chest radiograph was obtained. Findings: Mild interstitial edema may be present. The heart is slightly enlarged. The exam limited by rotation. Extensive hardware noted within the cervical spine for fusion. Bones are osteopenic. IMPRESSION: Slightly increased the interstitial edema compared the prior day. Follow-up recommended. Correlate clinically.
--- NOTE | 2017-11-05 12:33 | Diagnostic Imaging Report ---
Indication: Dyspnea Comparison: 10/05/2017 A single view chest radiograph was obtained. Findings: Hazy basilar opacities are present. Correlate for pneumonia. Heart size is normal. Extensive cervical spine hardware noted. IMPRESSION: Basilar infiltrates versus atelectasis.
[2017-11-05] MEDS ORDERED: Dyna-Hex 2% Top Sol 2oz TOPIC SCH (20:00)
--- NOTE | 2017-11-09 15:23 | Cardiology Report ---
APPROVED REPORT EKG Measurement Heart [id number] ID [id number] Normal sinus rhythm Right superior axis deviation Right ventricular hypertrophy Abnormal ECG
== END 2017-11-05 07:30 | disposition short-term general hospital (02) ==
LOC: EDBD 20:37 → EMR 20:48
DX: R07.89 Other chest pain (principal); E11.65 Type 2 diabetes mellitus with hyperglycemia; G89.29 Other chronic pain; I11.0 Hypertensive heart disease with heart failure; I50.9 Heart failure, unspecified; E78.5 Hyperlipidemia, unspecified; J44.9 Chronic obstructive pulmonary disease, unspecified; I69.359 Hemiplegia and hemiparesis following cerebral infarction affecting unspecified side; Z88.0 Allergy status to penicillin; Z88.5 Allergy status to narcotic agent
CPT/HCPCS: 36415; 71045; 80053; 82550; 82553; 82962; 83690; 83880; 84484; 85025; 85610; 85730; 86140; 87040; 93005; 94640; 94664; 99285; J1200; J1644; J1815; J2001; J2270; J2930; J7040; J7620

== ENCOUNTER 2018-02-13 15:51 | Emergency (ER) | payer OTHER ==
[~2018-02-13] VITALS: Ht 162.6 cm; Wt 90.7 kg
[~2018-02-13 15:51] MED LIST changes: +ACETAMINOPHEN325 M1 ORAL; +MULTIVITAMINS1 EAC2 ORAL; +NITROSTAT0.4 M1 SL; +NORCO 10-325 T1 EACH ORAL
--- NOTE | 2018-02-13 15:51 | Emergency Room Report ---
History of Present Illness General Source: Patient Present Illness HPI Patient is a 74-year-old female brought in by EMS after increased difficulty breathing. Patient been staying at a rehabilitation facility. 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 The patient was noted to have increased trouble breathing. She reports having increased chest discomfort. She been given breathing treatment by EMS.The patient reports having subjective fever. Allergies: Coded Allergies: MORPHINE (Verified Allergy, Intermediate, 07/23/13) PENICILLINS (Unverified Allergy, Unknown, 10/05/17) Uncoded Allergies: PENICILLIN (Allergy, Unknown, 02/13/18) pcn (Adverse Reaction, Mild, 07/23/13) Patient History Past Medical History: see triage record Reviewed Nursing 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: PMH: Agreed; PSxH: Agreed Review of Systems All Other Systems: negative except mentioned in HPI Physical Exam General Appearance: alert, GCS 15, moderate distress, obese, Chronically Ill Eyes: bilateral eye PERRL ENT: normal voice Neck: full range of motion Respiratory: accessory muscle use, wheezing Cardiovascular #1: normal inspection, edema - 3+ Gastrointestinal: normal inspection, soft Musculoskeletal: normal inspection Neurologic: alert, oriented x3, responsive, motor weakness - right side Psychiatric: normal inspection Skin: normal inspection Medical Decision Making Diagnostic Impression: Primary Impression: COPD (chronic obstructive pulmonary disease) Additional Impressions: CHF (congestive heart failure) Chronic pain ER Course Patient presented for chest pain and shortness of breath. The differential diagnosis included was not limited to CHF, asthma, pulmonary embolism, pulmonary fibrosis, pneumonia among others.Because of complexity of patient's case laboratory testing and imaging studies were ordered.EKG interpreted by me showed normal sinus rhythm with a rate of 89 with a left axis deviation and nonspecific T wave abnormality. The patient was started on BiPAP for difficulty breathing. The patient was noted to have chronic pain from back pain. The patient was offered oral pain medications which she refused.the patient was given Patient was given IV pain medication. As well as Benadryl.The patient was given breathing treatments. Patient was noted to have some improvement after medications. Patient was discussed with Dr. Voss who agreed to accept the patient. The patient will be transferred [facility]. The patient is stable for transfer Labs Test 02/13/18 16:55 White Blood Count 12.9 K/UL (4.8-10.8) Red Blood Count 5.00 M/UL (4.20-5.40) Hemoglobin 12.0 G/DL (12.0-16.0) Hematocrit 36.5 % (37.0-47.0) Mean Corpuscular Volume 73 FL (80-99) Mean Corpuscular Hemoglobin 24.0 PG (27.0-31.0) Mean Corpuscular Hemoglobin Concent 32.9 G/DL (32.0-36.0) Red Cell Distribution Width 15.0 % (11.6-14.8) Platelet Count 282 K/UL (150-450) Mean Platelet Volume 6.7 FL (6.5-10.1) Neutrophils (%) (Auto) 84.2 % (45.0-75.0) Lymphocytes (%) (Auto) 13.9 % (20.0-45.0) Monocytes (%) (Auto) 1.4 % (1.0-10.0) Eosinophils (%) (Auto) 0.1 % (0.0-3.0) Basophils (%) (Auto) 0.5 % (0.0-2.0) Prothrombin Time 11.0 SEC (9.30-11.50) Prothromb Time International Ratio 1.0 (0.9-1.1) Activated Partial Thromboplast Time 25 SEC (23-33) D-Dimer 1.54 mg/L FEU (0.00-0.49) Sodium Level 140 MMOL/L (136-145) Potassium Level 4.1 MMOL/L (3.5-5.1) Chloride Level 104 MMOL/L (98-107) Carbon Dioxide Level 24 MMOL/L (21-32) Anion Gap 12 mmol/L (5-15) Blood Urea Nitrogen 20 mg/dL (7-18) Creatinine 0.8 MG/DL (0.55-1.30) Estimat Glomerular Filtration Rate > 60 mL/min (>60) Glucose Level 310 MG/DL (74-106) Calcium Level 9.8 MG/DL (8.5-10.1) Total Bilirubin 0.3 MG/DL (0.2-1.0) Aspartate Amino Transf (AST/SGOT) 13 U/L (15-37) Alanine Aminotransferase (ALT/SGPT) 17 U/L (12-78) Alkaline Phosphatase 64 U/L (46-116) Total Creatine Kinase 38 U/L (26-308) Creatine Kinase MB 0.5 NG/ML (0.0-3.6) Creatine Kinase MB Relative Index 1.3 Troponin I 0.000 ng/mL (0.000-0.056) Pro-B-Type Natriuretic Peptide 766 pg/mL (0-125) Total Protein 8.1 G/DL (6.4-8.2) Albumin 3.9 G/DL (3.4-5.0) Globulin 4.2 g/dL Albumin/Globulin Ratio 0.9 (1.0-2.7) EKG Diagnostic Results Rate: normal Rhythm: NSR ST Segments: no acute changes Rhythm Strip Diag. Results EP Interpretation: yes Rhythm: NSR, no PVC's, no ectopy Status: improved Disposition: XFER SHT-TRM HOSP Condition: Serious Jass Gonzalez MD Feb 13, 2018 15:51
[2018-02-13 15:55] VITALS: BP 147/83
[2018-02-13] MEDS ORDERED: Albuterol ud Inhalation HHN ONE (16:00)
[2018-02-13] MEDS ORDERED: POTASSIUM CHLO10 ME2 PO (16:11)
[2018-02-13] MEDS ORDERED: XARELTO10 MG ORAL ×2 (16:11)
[2018-02-13] MEDS ORDERED: NOVOLIN R100 UNIT/1 SUBQ (16:11)
[2018-02-13] MEDS ORDERED: LEXAPRO20 MG ORAL (16:11)
[2018-02-13] MEDS ORDERED: Albuterol/Ipratropium 3ml neb HHN ONE (17:00)
[2018-02-13 17:37] LABS: BASOPHILS % (AUTO) 0.5 % (0.0-2.0); EOSINOPHILS % (AUTO) 0.1 % (0.0-3.0); HEMATOCRIT 36.5 % (37.0-47.0); LYMPHOCYTES % (AUTO) 13.9 % (20.0-45.0); MEAN CORPUSCULAR VOLUME 73 FL (80-99); MONOCYTES % (AUTO) 1.4 % (1.0-10.0); NEUTROPHILS % (AUTO) 84.2 % (45.0-75.0); PLATELET COUNT 282 K/UL (150-450); WHITE BLOOD COUNT 12.9 K/UL (4.8-10.8)
[2018-02-13 17:46] LABS: ANION GAP 12 mmol/L (5-15); BLOOD UREA NITROGEN 20 mg/dL (7-18); CALCIUM 9.8 MG/DL (8.5-10.1); CARBON DIOXIDE 24 MMOL/L (21-32); CHLORIDE 104 MMOL/L (98-107); CREATININE 0.8 MG/DL (0.55-1.30); POTASSIUM 4.1 MMOL/L (3.5-5.1); SODIUM 140 MMOL/L (136-145)
[2018-02-13 17:58] LABS: ALANINE AMINOTRANSFERASE 17 U/L (12-78); ALBUMIN 3.9 G/DL (3.4-5.0); ALBUMIN/GLOBULIN RATIO 0.9 (1.0-2.7); ALKALINE PHOSPHATASE 64 U/L (46-116); ASPARTATE AMINO TRANSFERASE 13 U/L (15-37); BILIRUBIN,TOTAL 0.3 MG/DL (0.2-1.0); CKMB 0.5 NG/ML (0.0-3.6); CREATINE KINASE 38 U/L (26-308)
[2018-02-13] MEDS ORDERED: Morphine Sulfate 4mg/ml Inj (IV USE ONLY) IVP ONE (18:30)
[2018-02-13] MEDS ORDERED: DiphenhydrAMINE 50mg/ml Inj ONE (19:01)
[2018-02-13 19:24] VITALS: BP 142/76
[2018-02-13] MEDS ORDERED: DiphenhydrAMINE 50mg/ml Inj IVP ONE (19:30)
[2018-02-13 20:30] VITALS: BP 131/65
--- NOTE | 2018-02-14 14:39 | Diagnostic Imaging Report ---
Indication: Shortness of breath Technique: XRAY Chest 1v Comparison: 618 Findings: Patient's chin obscures portions of the lung apices. Question mild cardiomegaly although heart size is exaggerated by low lung volumes and AP technique. There are atherosclerotic calcifications in the aortic arch. There is haziness of the pulmonary vascularity which again may be exaggerated by low lung volumes however some interstitial edema/fluid overload not excluded. Costophrenic sulci appear sharp. No definite pneumothorax. No acute osseous abnormality. Impression: Question mild interstitial edema, possibly exaggerated by low lung volumes. Correlate clinically.
--- NOTE | 2018-02-15 14:25 | Cardiology Report ---
APPROVED REPORT EKG Measurement Heart [id number] Normal sinus rhythm Possible Left atrial enlargement Left axis deviation Nonspecific T wave abnormality Abnormal ECG
== END 2018-02-13 20:30 | disposition short-term general hospital (02) ==
LOC: EDBD 15:51 → EMR 17:36
DX: J44.9 Chronic obstructive pulmonary disease, unspecified (principal); I50.9 Heart failure, unspecified; G89.29 Other chronic pain; R07.9 Chest pain, unspecified; Z88.0 Allergy status to penicillin; Z88.5 Allergy status to narcotic agent
CPT/HCPCS: 36415; 71045; 80053; 82550; 82553; 83880; 84484; 85025; 85379; 85610; 85730; 93005; 94640; 94664; 96374; 96375; 99284; J1200; J1940; J2270; J7512; J7620

== ENCOUNTER 2018-06-05 14:28 | Inpatient (IN) | payer OTHER ==
[~2018-06-05] VITALS: Ht 162.6 cm; Wt 83.6 kg
[~2018-06-05 14:28] MED LIST changes: +LEXAPRO20 MG ORAL; +NOVOLIN R100 UNIT/1 SUBQ; +POTASSIUM CHLO10 ME2 PO; +XARELTO10 MG ORAL
[2018-06-05 14:35] VITALS: BP 123/68
[2018-06-05] MEDS ORDERED: Ipratropium 0.02% Inh Soln 2.5ml UD HHN ONE (14:45)
[2018-06-05] MEDS ORDERED: Albuterol ud Inhalation HHN ONE (14:45)
--- NOTE | 2018-06-05 14:48 | Emergency Room Report ---
History of Present Illness General Chief Complaint: Chest Pain Source: Patient Present Illness HPI Patient presents with 3 days of increasing chest pain. She also has a cough and shortness of breath. She's felt slightly feverish also but no documented temperature. The cough is not productive. She does not get a flu vaccination. She's had pneumonia in the past. She claims she's had a heart attack in the past also. When she's had upper respiratory problems she usually doesn't get chest pain and this is new for her. She denies any calf pain or swelling. She is recovering from a stroke and still has some left-sided weakness. This is not increased at this time and she denies headache. She was recently hospitalized in March at [facility] for similar complaints. Allegedly the workup was negative. In the past she has been seen for drug-seeking behavior. No palpitations, nausea, vomiting, diarrhea, dysuria, abdominal pain, depression , visual changes. Borderline diabetes. 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: PMH: Agreed; PSxH: Agreed Nursing 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-PM Past Medical History: No History, Except For Hx Cardiac Problems: Yes Hx Hypertension: Yes Hx Pacemaker: No Hx Asthma: Yes Hx COPD: Yes Hx Diabetes: No Hx Cancer: No Hx Gastrointestinal Problems: No Hx Dialysis: No Hx Neurological Problems: Yes Hx Cerebrovascular Accident: Yes Hx Seizures: No Review of Systems All Other Systems: negative except mentioned in HPI Physical Exam Vital Signs Date Time Temp Pulse Resp B/P (MAP) Pulse Ox O2 Delivery O2 Flow Rate FiO2 06/05/18 14:35 98.2 103 26 123/68 99 Room Air Sp02 EP Interpretation: reviewed, normal General Appearance: well appearing, no apparent distress, GCS 15 Head: normocephalic Eyes: bilateral eye normal inspection, bilateral eye PERRL ENT: moist mucus membranes Neck: supple Respiratory: lungs clear, normal breath sounds Cardiovascular #1: regular rate, rhythm Cardiovascular #2: 2+ radial (R) Gastrointestinal: normal inspection, normal bowel sounds, non tender, no mass, non-distended Musculoskeletal: back normal, gait/station normal, normal range of motion Neurologic: alert, oriented x3, sensory intact, motor weakness - Left minimal Psychiatric: mood/affect normal Skin: normal inspection, warm/dry Medical Decision Making Diagnostic Impression: Primary Impression: Chest pain Qualified Codes: R07.9 - Chest pain, unspecified Additional Impression: Bronchospasm ER Course Patient presents with chest pain dyspnea and cough with wheezing. Differential includes acute myocardial infarction, acute coronary syndrome, upper respiratory infection, influenza, exacerbation of asthma amongst others. Evaluation will be with EKG, chest x-ray and labs. The patient will be treated with breathing treatments. Also aspirin and nitroglycerin paste will be applied. EKG with RAD. No acute changes. CXR with increased amado bilaterally. Labs with initial troponin neg. BNP normal. CBC and CMP normal. Patient still with pain. Dilaudid given. Some improvement. Due to exertional nature of pain, needs cardiac observation and repeat troponin determinations. Admit observation Dr. Graves. Patient requested more analgesia however declined Percocet. Patient refused to give urine sample according to nurse. Laboratory Tests Test 06/05/18 16:15 White Blood Count 9.3 K/UL (4.8-10.8) Red Blood Count 5.57 M/UL (4.20-5.40) H Hemoglobin 12.5 G/DL (12.0-16.0) Hematocrit 40.3 % (37.0-47.0) Mean Corpuscular Volume 72 FL (80-99) L Mean Corpuscular Hemoglobin 22.5 PG (27.0-31.0) L Mean Corpuscular Hemoglobin Concent 31.1 G/DL (32.0-36.0) L Red Cell Distribution Width 16.0 % (11.6-14.8) H Platelet Count 116 K/UL (150-450) L Mean Platelet Volume 7.0 FL (6.5-10.1) Neutrophils (%) (Auto) 73.5 % (45.0-75.0) Lymphocytes (%) (Auto) 21.7 % (20.0-45.0) Monocytes (%) (Auto) 2.9 % (1.0-10.0) Eosinophils (%) (Auto) 1.1 % (0.0-3.0) Basophils (%) (Auto) 0.8 % (0.0-2.0) Prothrombin Time 10.6 SEC (9.30-11.50) Prothrombin Time INR 1.0 (0.9-1.1) PTT 23 SEC (23-33) Sodium Level 140 MMOL/L (136-145) Potassium Level 3.7 MMOL/L (3.5-5.1) Chloride Level 105 MMOL/L (98-107) Carbon Dioxide Level 22 MMOL/L (21-32) Anion Gap 13 mmol/L (5-15) Blood Urea Nitrogen 15 mg/dL (7-18) Creatinine 0.8 MG/DL (0.55-1.30) Estimate Glomerular Filtration Rate > 60 mL/min (>60) Glucose Level 118 MG/DL (74-106) H Calcium Level 9.0 MG/DL (8.5-10.1) Total Bilirubin 0.5 MG/DL (0.2-1.0) Aspartate Amino Transferase (AST) 12 U/L (15-37) L Alanine Aminotransferase (ALT) 27 U/L (12-78) Alkaline Phosphatase 48 U/L (46-116) Total Creatine Kinase 29 U/L (26-308) Troponin I 0.010 ng/mL (0.000-0.056) Pro-B-Type Natriuretic Peptide 64 pg/mL (0-125) Total Protein 7.3 G/DL (6.4-8.2) Albumin 3.3 G/DL (3.4-5.0) L Globulin 4.0 g/dL Albumin/Globulin Ratio 0.8 (1.0-2.7) L Microbiology Date/Time Source Procedure Growth Status 06/05/18 15:23 Nasal Nares Influenza Types A,B Antigen ([facility]) - Final Complete EKG Diagnostic Results Rate: normal Rhythm: NSR ST Segments: no acute changes - Right ventricular hyper nonspecific ST-T wav ASA given to the pt in ED: Yes Rhythm Strip Diag. Results EP Interpretation: yes Rhythm: NSR, no PVC's, no ectopy Chest X-Ray Diagnostic Results Chest X-Ray Diagnostic Results : Chest X-Ray Ordered: Yes # of Views/Limited/Complete: 1 View Indication: Chest Pain EP Interpretation: Yes Interpretation: no effusion, no pneumothorax, other - increased amado and neck surgery Impression: Other Electronically Signed by: Electronically signed by Guillermo Poole MD Last Vital Signs Date Time Temp Pulse Resp B/P (MAP) Pulse Ox O2 Delivery O2 Flow Rate FiO2 06/05/18 23:10 Room Air 06/05/18 20:51 98.2 84 19 144/81 100 Status: improved Disposition: PLACE IN OBSERVATION Condition: Serious Guillermo Poole MD Jun 05, 2018 14:48
--- NOTE | 2018-06-05 14:50 | NUR ---
ED Nurse Note: Pt. AAOx4. wheeled in to ER due to CP that lasted about 1.5 hrs ago today. L sided CP radiating to the L arm.
[2018-06-05] MEDS ORDERED: Nitroglycerin 2% oint pkt TOPIC ONE (15:00)
--- NOTE | 2018-06-05 16:07 | NUR ---
ED Nurse Note: pt. came in with midline on the L upper arm
[2018-06-05] MEDS ORDERED: Hydromorphone 0.5mg/0.5ml inj IVP ONE ×2 (16:30→17:15)
[2018-06-05 16:43] LABS: BASOPHILS % (AUTO) 0.8 % (0.0-2.0); EOSINOPHILS % (AUTO) 1.1 % (0.0-3.0); HEMATOCRIT 40.3 % (37.0-47.0); HEMOGLOBIN 12.5 G/DL (12.0-16.0); LYMPHOCYTES % (AUTO) 21.7 % (20.0-45.0); MEAN CORPUSCULAR VOLUME 72 FL (80-99); MONOCYTES % (AUTO) 2.9 % (1.0-10.0); NEUTROPHILS % (AUTO) 73.5 % (45.0-75.0); PLATELET COUNT 116 K/UL (150-450); RED BLOOD COUNT 5.57 M/UL (4.20-5.40); WHITE BLOOD COUNT 9.3 K/UL (4.8-10.8)
[2018-06-05] MEDS ORDERED: DiphenhydrAMINE 50mg/ml Inj IVP ONE ×2 (16:45→18:15)
--- NOTE | 2018-06-05 16:50 | NUR ---
ED Nurse Note: Dr. Poole aware of being unable to establish IV access. Midline on the L upper arm is ok to utilize. Labs drawn by hot plate plywood press laborer
[2018-06-05 17:03] LABS: ANION GAP 13 mmol/L (5-15); BLOOD UREA NITROGEN 15 mg/dL (7-18); CARBON DIOXIDE 22 MMOL/L (21-32); CHLORIDE 105 MMOL/L (98-107); CREATININE 0.8 MG/DL (0.55-1.30); POTASSIUM 3.7 MMOL/L (3.5-5.1); SODIUM 140 MMOL/L (136-145)
[2018-06-05 17:15] LABS: ALANINE AMINOTRANSFERASE 27 U/L (12-78); ALBUMIN 3.3 G/DL (3.4-5.0); ALBUMIN/GLOBULIN RATIO 0.8 (1.0-2.7); ALKALINE PHOSPHATASE 48 U/L (46-116); ASPARTATE AMINO TRANSFERASE 12 U/L (15-37); BILIRUBIN,TOTAL 0.5 MG/DL (0.2-1.0); CREATINE KINASE 29 U/L (26-308)
[2018-06-05 17:21] VITALS: BP 145/83
[2018-06-05 19:30] VITALS: BP 142/84
[2018-06-05] MEDS ORDERED: Ketorolac 30mg Inj IV PRN (19:30)
[2018-06-05] MEDS ORDERED: Nitroglycerin Subl 0.4mg tab SL PRN (19:30)
[2018-06-05] MEDS ORDERED: Miralax 17gm pkt ORAL PRN (19:30)
[2018-06-05] MEDS ORDERED: Enalaprilat 2.5mg/2ml Inj IV PRN (19:30)
[2018-06-05] MEDS ORDERED: dilTIAZem HCl 25mg/5ml Inj IV PRN (19:30)
[2018-06-05] MEDS ORDERED: Albuterol/Ipratropium 3ml neb HHN PRN (19:30)
--- NOTE | 2018-06-05 19:34 | NUR ---
HAND-OFF: Report given to VIKI Dickson.
--- NOTE | 2018-06-05 19:50 | NUR ---
NURSE NOTES: VIKI Garcia from ER called and provided report regarding patient. ETA 10 minutes to floor.
--- NOTE | 2018-06-05 20:14 | NUR ---
ED Nurse Note: Pt refused to give urine. pt refused to give a reason.
--- NOTE | 2018-06-05 20:25 | NUR ---
Karo gaston in [facility] - 06/05/18 at 2038 by [facility] Registration approved admission to [facility], however still wants patient to be transferred, aware and expecting patient.
[2018-06-05 20:29] VITALS: BP 144/81
--- NOTE | 2018-06-05 20:45 | NUR ---
NURSE NOTES: Pt transferred from ER via gurney and transferred to [facility] with 2 staff assist. surveillance monitor applied. Belongings list checked with patient at bedside. Pt is awake, alert, and oriented x4. Pt is on room air and breathing is even and unlabored. No acute distress noted. IV site noted to be L upper arm mid-line. Per patient, was inserted 06/04/2018 for prolonged abx therapy s/p back surgery. Mid-line patent and intact. Dressing changed 06/05/2018 upon ER admission. Will notify MD of IV access. Skin is intact; surgical scar noted down mid-line of back and is intact and closed. Pt provided with orientation to surroundings and hospital protocol. Call light and side table placed within reach. Will continue to monitor.
--- NOTE | 2018-06-05 20:50 | NUR ---
NURSE NOTES: Morphine listed as allergy for patient in chart. Per patient report, she is NOT allergic to morphine. Chart amended. MD Mendoza, covering for MD Graves, notified.
--- NOTE | 2018-06-05 20:51 | NUR ---
ED Nurse Note: PT is transferd according to ERMD orders to TELE [id number], with RN Jayne RN, pt vital signs, status and condition reported to MD prior to transfer. pt transfered with all belongings.
[2018-06-05] MEDS: Heparin 5000 units/ml inj SUBQ SCH (21:00)
--- NOTE | 2018-06-05 21:00 | NUR ---
NURSE NOTES: Pt c/o 02/07 lower back pain with radiation to legs and chest. Pt declining toradol at this time stating "I don't want you to give me something that isn't going to fix the pain." Pt is requesting 0.5mg Diladid IVP since that's what was given in ER and pt states that this was "the only thing that touched my pain." Message left for MD Mendoza, covering for MD Graves, to request pain medication. Awaiting call back for further instructions. Will continue to monitor.
--- NOTE | 2018-06-05 22:11 | NUR ---
NURSE NOTES: Message left for MD Graves to ask for order for pain medication per patient request. Awaiting call back for further instructions. Will continue to monitor.
--- NOTE | 2018-06-05 22:19 | NUR ---
NURSE NOTES: MD Rodríguez return call regarding pt pain management. Per , liang to order 0.5mg Dilaudid IVP Q3HR. MD to see patient in the morning and assess. Orders noted and carried out.
[2018-06-05] MEDS: Hydromorphone 0.5mg/0.5ml inj IVP PRN (22:32)
--- NOTE | 2018-06-05 22:42 | NUR ---
NURSE NOTES: Pt is requesting Benadryl so that she "doesn't get itchy from the pain medication." Pt denies current itching at this time. Message left for MD Rodríguez to request orders. Awaiting call back for further instructions.
--- NOTE | 2018-06-05 22:45 | NUR ---
NURSE NOTES: MD Rodríguez return call and states no Benadryl order at this time. Per MD, if pt becomes itchy from the Dilaudid then stop the pain medication. Pt aware and verbalized understanding. Pt in stable condition. Will continue to monitor.
[2018-06-06] VITALS: BP 117/77
[2018-06-06] MEDS: Hydromorphone 0.5mg/0.5ml inj IVP PRN ×8 (01:31→22:51)
[2018-06-06 04:00] VITALS: BP 141/81
--- NOTE | 2018-06-06 07:10 | NUR ---
NURSE NOTES: I received the patient awake and resting in bed. Patient alert and oriented x4. Patient does not display any signs of distress or SOB. Bed in the lowest position and call light within reach. I will continue to monitor the patient and implement care.
--- NOTE | 2018-06-06 07:35 | NUR ---
HAND-OFF: Report given to Isabelle Swift RN. Pt is resting in bed in stable condition. No acute distress noted. Endorsed plan of care.
[2018-06-06 08:00] VITALS: BP 113/64
[2018-06-06 08:02] LABS: HEMATOCRIT 34.2 % (37.0-47.0); HEMOGLOBIN 10.7 G/DL (12.0-16.0); MEAN CORPUSCULAR VOLUME 73 FL (80-99); PLATELET COUNT 114 K/UL (150-450); RED BLOOD COUNT 4.67 M/UL (4.20-5.40); RED CELL DISTRIBUTION WIDTH 16.4 % (11.6-14.8); WHITE BLOOD COUNT 6.7 K/UL (4.8-10.8)
[2018-06-06] MEDS: Heparin 5000 units/ml inj SUBQ SCH ×2 (08:04→20:35)
[2018-06-06 08:33] LABS: CHOLESTEROL 137 MG/DL (< 200); HDL CHOLESTEROL 47 MG/DL (40-60); TRIGLYCERIDES 93 MG/DL (30-150)
--- NOTE | 2018-06-06 09:27 | Diagnostic Imaging Report ---
Indication: Chest pain Technique: One view of the chest Comparison: none Findings: Body habitus limits evaluation. The left lateral hemidiaphragm is obscured. The heart is enlarged. The lungs and pleural spaces are otherwise clear. The aorta is calcified. Surgical changes of the cervical spine are again demonstrated Impression: Obscured left lateral hemidiaphragm, unchanged from prior study 03/18/2018. Possibly on the basis of infiltrate or pleural fluid, but could also be artifactual due to overlapping soft tissues. Borderline cardiomegaly
[2018-06-06] MEDS: Aspirin Baby 81mg ORAL SCH (10:30)
--- NOTE | 2018-06-06 11:21 | NUR ---
INSURANCE NO INSURANCE CONTACT INFORMATION IN THE B/AR
--- NOTE | 2018-06-06 11:33 | Consultation ---
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 She's felt slightly feverish also but no documented temperature. Her chest pain in left upper chest radiating to her L shoulder. Allergies: Coded Allergies: ORANGE (Verified Allergy, Severe, Anaphylaxis, 06/06/18) PENICILLINS (Unverified Allergy, Unknown, 10/05/17) Medication History Scheduled Albuterol Sulfate* (Albuterol Sulfate Mdi*), 2 PUFF INH Q6H Amlodipine Besylate* (Amlodipine Besylate*), 10 MG ORAL DAILY, (Reported) Aspirin* (Aspirin*), 325 MG ORAL DAILY, (Reported) Aspirin* (Aspir 81*), 81 MG ORAL DAILY, (Reported) Atorvastatin Calcium* (Lipitor*), 40 MG ORAL BEDTIME, (Reported) Azithromycin* (Zithromax*), 250 MG ORAL DAILY Cyclobenzaprine Hcl* (Flexeril*), 10 MG ORAL THREE TIMES A DAY, (Reported) Docusate Sodium* (Docusate Sodium*), 250 MG ORAL TWICE A DAY, (Reported) Doxazosin Mesylate* (Doxazosin Mesylate*), 1 MG ORAL HS, (Reported) Escitalopram Oxalate* (Lexapro*), 20 MG ORAL BID, (Reported) Ferrous Sulfate* (Ferrous Sulfate*), 325 MG ORAL THREE TIMES A DAY, (Reported) Furosemide (Furosemide), 20 MG ORAL BID, (Reported) Gabapentin* (Gabapentin*), 300 MG ORAL THREE TIMES A DAY, (Reported) Hydromorphone HCl/Pf (Dilaudid 2 Mg/Ml Syringe), 2 MG IM Q4HR, (Reported) Insulin Regular, Human* (Novolin R*), 0 SUBQ .SLIDING SCALE, (Reported) Losartan Potassium* (Cozaar*), 50 MG ORAL TWICE A DAY, (Reported) Magnesium Oxide (Magnesium Oxide), 400 MG ORAL BID, (Reported) Multivitamins* (Multivitamins*), 1 TAB ORAL DAILY, (Reported) Pantoprazole* (Protonix*), 40 MG ORAL DAILY, (Reported) Potassium Chloride (Potassium Chloride), 10 MEQ PO DAILY, (Reported) Prednisone* (Prednisone*), 20 MG ORAL BID Prednisone* (Prednisone*), 40 MG ORAL DAILY Rivaroxaban (Xarelto*), 10 MG ORAL BID, (Reported) Rivaroxaban (Xarelto*), 20 MG ORAL DAILY, (Reported) Valsartan/Hydrochlorothiazide 320-25MG (Diovan Hct 320-25 Mg Tablet), 1 TAB ORAL DAILY, (Reported) Scheduled PRN Acetaminophen With Codeine (T#3) (Tylenol #3 Tab*), 1 TAB ORAL Q8H PRN for For Pain Acetaminophen* (Acetaminophen 325MG Tablet*), 650 MG ORAL Q6H PRN for Fever/ Headache/Mild Pain, (Reported) Albuterol Sulfate* (Albuterol Sulfate Mdi*), 2 PUFF INH Q4H PRN for cough/ wheezing Albuterol Sulfate* (Albuterol Sulfate Hhn*), 2.5 MG HHN Q4H PRN for Shortness of Breath Albuterol Sulfate* (Albuterol Sulfate Mdi*), 2 PUFF INH Q4H PRN for cough/ wheezing Baclofen* (Baclofen*), 10 MG ORAL PRN PRN for For Pain, (Reported) Diphenhydramine Hcl* (Benadryl*), 25 MG ORAL Q4HR PRN for Itching, (Reported) Hydrocodone Bit/Acetaminophen 10-325* ([place] 10-325*), 1 TAB ORAL Q4H PRN for For Pain, (Reported) Lorazepam* (Ativan*), 0.5 MG ORAL EVERY 4 HOURS PRN for For Anxiety, (Reported) Nitroglycerin (Nitrostat), 0.4 MG SL Q5M X3 DOSES PRN for CHEST PAIN, (Reported) Oxycodone Hcl* (Oxycodone Hcl*), 10 MG ORAL Q6HR PRN for For Pain, (Reported) Polyethylene Glycol 3350* (Miralax*), 17 GM ORAL PRN PRN for Constipation, ( Reported) Temazepam* (Restoril*), 15 MG ORAL BEDTIME PRN for Insomnia, (Reported) Miscellaneous Medications Acetaminophen (Acetaminophen), 325 MG PO, (Reported) Budesonide (Budesonide), 0.5 MG IH, (Reported) Ipratropium/Albuterol Sulfate (DuoNeb 0.5-3(2.5)mg/3ml), 3 ML HHN, (Reported) Lactulose (Lactulose*), 30 ML ORAL, (Reported) Durable Medical Equipment Nebulizer (Compact Compressor Nebulizer), TOM , (DME) Patient History Healthcare decision maker Resuscitation status Full Code Advanced Directive on File No Past Medical/Surgical History Past Medical/Surgical History: (1) CAD (coronary artery disease) (2) COPD (chronic obstructive pulmonary disease) (3) History of NE (myocardial infarction) (4) Previous back surgery (5) Left-sided weakness Review of Systems All Other Systems: negative except mentioned in HPI Physical Exam General Appearance: WD/WN Lines, tubes and drains: peripheral HEENT: normocephalic, atraumatic Neck: non-tender, normal alignment Respiratory/Chest: chest wall non-tender, lungs clear Cardiovascular/Chest: normal peripheral pulses, normal rate Abdomen: normal bowel sounds Genitourinary/Rectal: normal genital exam Extremities: normal range of motion Last 24 Hour Vital Signs Date Time Temp Pulse Resp B/P (MAP) Pulse Ox O2 Delivery O2 Flow Rate FiO2 06/06/18 09:00 Room Air 06/06/18 08:03 98.1 06/06/18 08:00 98.0 81 16 113/64 (80) 93 06/06/18 07:39 84 06/06/18 04:00 74 06/06/18 04:00 98.1 77 19 141/81 (101) 97 06/06/18 00:00 93 06/06/18 00:00 98.5 93 18 117/77 (90) 96 06/05/18 23:10 Room Air 06/05/18 20:51 98.2 84 19 144/81 100 Room Air 06/05/18 20:29 98.2 84 19 144/81 100 Room Air 06/05/18 19:30 98.2 88 19 142/84 100 Room Air 06/05/18 17:51 98.2 06/05/18 17:21 98.2 88 21 145/83 100 Room Air 06/05/18 17:01 98.2 06/05/18 15:51 123/68 06/05/18 15:13 91 20 100 Room Air 06/05/18 15:00 91 20 Room Air 06/05/18 14:52 96 18 96 Room Air 06/05/18 14:35 98.2 103 26 123/68 99 Room Air 06/05/18 14:35 103 26 Room Air 06/05/18 14:35 98.2 103 26 123/68 99 Room Air Intake and Output 06/05/18 06/06/18 19:00 07:00 Intake Total 120 ml Output Total 0 ml Balance 0 ml 120 ml Other 120 ml Output Urine Total 0 ml Laboratory Tests Test 06/05/18 16:15 06/06/18 07:00 White Blood Count 9.3 K/UL (4.8-10.8) 6.7 K/UL (4.8-10.8) Red Blood Count 5.57 M/UL (4.20-5.40) H 4.67 M/UL (4.20-5.40) Hemoglobin 12.5 G/DL (12.0-16.0) 10.7 G/DL (12.0-16.0) L Hematocrit 40.3 % (37.0-47.0) 34.2 % (37.0-47.0) L Mean Corpuscular Volume 72 FL (80-99) L 73 FL (80-99) L Mean Corpuscular Hemoglobin 22.5 PG (27.0-31.0) L 22.9 PG (27.0-31.0) L Mean Corpuscular Hemoglobin Concent 31.1 G/DL (32.0-36.0) L 31.3 G/DL (32.0-36.0) L Red Cell Distribution Width 16.0 % (11.6-14.8) H 16.4 % (11.6-14.8) H Platelet Count 116 K/UL (150-450) L 114 K/UL (150-450) L Mean Platelet Volume 7.0 FL (6.5-10.1) 7.8 FL (6.5-10.1) Neutrophils (%) (Auto) 73.5 % (45.0-75.0) % (45.0-75.0) Lymphocytes (%) (Auto) 21.7 % (20.0-45.0) % (20.0-45.0) Monocytes (%) (Auto) 2.9 % (1.0-10.0) % (1.0-10.0) Eosinophils (%) (Auto) 1.1 % (0.0-3.0) % (0.0-3.0) Basophils (%) (Auto) 0.8 % (0.0-2.0) % (0.0-2.0) Prothrombin Time 10.6 SEC (9.30-11.50) 10.4 SEC (9.30-11.50) Prothromb Time International Ratio 1.0 (0.9-1.1) 1.0 (0.9-1.1) Activated Partial Thromboplast Time 23 SEC (23-33) 25 SEC (23-33) Sodium Level 140 MMOL/L (136-145) Potassium Level 3.7 MMOL/L (3.5-5.1) Chloride Level 105 MMOL/L (98-107) Carbon Dioxide Level 22 MMOL/L (21-32) Anion Gap 13 mmol/L (5-15) Blood Urea Nitrogen 15 mg/dL (7-18) Creatinine 0.8 MG/DL (0.55-1.30) Estimat Glomerular Filtration Rate > 60 mL/min (>60) Glucose Level 118 MG/DL (74-106) H Calcium Level 9.0 MG/DL (8.5-10.1) Total Bilirubin 0.5 MG/DL (0.2-1.0) Aspartate Amino Transf (AST/SGOT) 12 U/L (15-37) L Alanine Aminotransferase (ALT/SGPT) 27 U/L (12-78) Alkaline Phosphatase 48 U/L (46-116) Total Creatine Kinase 29 U/L (26-308) Troponin I 0.010 ng/mL (0.000-0.056) 0.017 ng/mL (0.000-0.056) Pro-B-Type Natriuretic Peptide 64 pg/mL (0-125) Total Protein 7.3 G/DL (6.4-8.2) Albumin 3.3 G/DL (3.4-5.0) L Globulin 4.0 g/dL Albumin/Globulin Ratio 0.8 (1.0-2.7) L Differential Total Cells Counted 100 Neutrophils % (Manual) 73 % (45-75) Lymphocytes % (Manual) 24 % (20-45) Monocytes % (Manual) 3 % (1-10) Eosinophils % (Manual) 0 % (0-3) Basophils % (Manual) 0 % (0-2) Band Neutrophils 0 % (0-8) Platelet Estimate Decreased L Platelet Morphology Normal Hypochromasia 1+ Anisocytosis 1+ Microcytosis 1+ C-Reactive Protein, Quantitative 1.7 mg/dL (0.00-0.90) H Triglycerides Level 93 MG/DL (30-150) Cholesterol Level 137 MG/DL (< 200) LDL Cholesterol 78 mg/dL (<100) HDL Cholesterol 47 MG/DL (40-60) Cholesterol/HDL Ratio 2.9 (3.3-4.4) L Thyroid Stimulating Hormone (TSH) 1.851 uiU/mL (0.358-3.740) Microbiology Date/Time Source Procedure Growth Status 06/05/18 15:23 Nasal Nares Influenza Types A,B Antigen (OND[facility]) - Final Complete Height (Feet): 5 Height (Inches): 4.00 Weight (Pounds): 183 Medications Current Medications Medications (Trade) Dose Ordered Sig/Jael Route PRN Reason Start Time Stop Time Status Last Admin Dose Admin Acetaminophen (Tylenol) 650 mg Q4H PRN ORAL FEVER 06/05/18 19:30 07/05/18 19:29 Albuterol/ Ipratropium (Albuterol/ Ipratropium) 3 ml Q4H PRN HHN Shortness of Breath 06/05/18 19:30 06/10/18 19:29 Aspirin (ASA) 162 mg DAILY ORAL 06/06/18 09:00 07/06/18 08:59 06/06/18 10:30 Diltiazem HCl (Cardizem) 10 mg Q1H PRN IV heart rate more than 120, 06/05/18 19:30 07/05/18 19:29 Enalaprilat (Vasotec) 2.5 mg Q6H PRN IV sbp more than 160 06/05/18 19:30 07/05/18 19:29 Heparin Sodium (Porcine) (Heparin 5000 units/ml) 5,000 units EVERY 12 HOURS SUBQ 06/05/18 21:00 07/05/18 20:59 Hydromorphone HCl (Dilaudid) 0.5 mg Q3H PRN IVP For Pain 06/05/18 22:30 06/12/18 22:29 06/06/18 10:31 Ketorolac Tromethamine (Toradol 30mg) 30 mg Q6H PRN IV moderate pain ( 4-6) 06/05/18 19:30 06/10/18 19:29 Nitroglycerin (Ntg) 0.4 mg Q5M PRN SL Prn Chest Pain 06/05/18 19:30 07/05/18 19:29 Ondansetron HCl (Zofran) 4 mg Q6H PRN IVP Nausea & Vomiting 06/05/18 19:30 07/05/18 19:29 Polyethylene Glycol (Miralax) 17 gm DAILYPRN PRN ORAL Constipation 06/05/18 19:30 07/05/18 19:29 Temazepam (Restoril) 15 mg HSPRN PRN ORAL Insomnia 06/05/18 19:30 06/12/18 19:29 06/05/18 22:57 Assessment/Plan Problem List: (1) ACS (acute coronary syndrome) ICD Codes: I24.9 - Acute ischemic heart disease, unspecified SNOMED: 234430378 (2) Costochondritis ICD Codes: M94.0 - Chondrocostal junction syndrome [[place]] SNOMED: 94449958 (3) History of NE (myocardial infarction) ICD Codes: I25.2 - Old myocardial infarction SNOMED: 061091069 (4) CAD (coronary artery disease) ICD Codes: I25.10 - Atherosclerotic heart disease of [place] coronary artery without angina pectoris SNOMED: 74743911 (5) COPD (chronic obstructive pulmonary disease) ICD Codes: J44.9 - Chronic obstructive pulmonary disease, unspecified SNOMED: 65750147 (6) Previous back surgery ICD Codes: Z98.890 - Other specified postprocedural states SNOMED: 284446970 (7) Left-sided weakness ICD Codes: R53.1 - Weakness SNOMED: 167326130 Assessment/Plan serial ekg, troponin Cardiology evaluation symptomatic treatment respiratory treatment antitussives. dvt prophylaxis. Leo Mendoza MD Jun 06, 2018 11:32
[2018-06-06 12:00] VITALS: BP 115/61
[2018-06-06] MEDS: DiphenhydrAMINE 50mg/ml Inj IVP PRN ×2 (13:42→19:54)
--- NOTE | 2018-06-06 15:42 | NUR ---
CASE MANAGEMENT:REVIEW FROM HOME TO ER CC: CHEST PRESSURE RADIATING TO SHOULDER SI:CHEST PAIN. BRONCHOSPASM 98.2 103 26 123/68 99% ON RA [id number] IS: DUONEB HHN ASA PO NITRO 1" IV DILAUDID X2 IV BENADRYL CXR : TO TELEMETRY
--- NOTE | 2018-06-06 15:48 | NUR ---
INTERQUAL CRITERIA MET FOR OBSERVATION ONLY NO CRITERIA FOR INPATIENT HOSPITALIZATION
[2018-06-06 16:00] VITALS: BP 122/62
--- NOTE | 2018-06-06 18:04 | Consultation ---
History of Present Illness General Date patient seen: Jun 06, 2018 Chief Complaint: Generalized body pain Referring physician: Star Reason for Consultation: Pain Management Present Illness HPI Patient is a known patient from [facility]. She has extensive h/o multiple surgeries on Cervical and Lumbar spine. C/o severe pain in through out her body. Due to this we were consulted so patient has adequate pain control while here in the hospital. She was started on Dilaudid 0.5mg IV Q3H PRN severe pain as per Dr. Rodríguez. Allergies: Coded Allergies: ORANGE (Verified Allergy, Severe, Anaphylaxis, 06/06/18) PENICILLINS (Unverified Allergy, Unknown, 10/05/17) Medication History Scheduled Albuterol Sulfate* (Albuterol Sulfate Mdi*), 2 PUFF INH Q6H Amlodipine Besylate* (Amlodipine Besylate*), 10 MG ORAL DAILY, (Reported) Aspirin* (Aspirin*), 325 MG ORAL DAILY, (Reported) Aspirin* (Aspir 81*), 81 MG ORAL DAILY, (Reported) Atorvastatin Calcium* (Lipitor*), 40 MG ORAL BEDTIME, (Reported) Azithromycin* (Zithromax*), 250 MG ORAL DAILY Cyclobenzaprine Hcl* (Flexeril*), 10 MG ORAL THREE TIMES A DAY, (Reported) Docusate Sodium* (Docusate Sodium*), 250 MG ORAL TWICE A DAY, (Reported) Doxazosin Mesylate* (Doxazosin Mesylate*), 1 MG ORAL HS, (Reported) Escitalopram Oxalate* (Lexapro*), 20 MG ORAL BID, (Reported) Ferrous Sulfate* (Ferrous Sulfate*), 325 MG ORAL THREE TIMES A DAY, (Reported) Furosemide (Furosemide), 20 MG ORAL BID, (Reported) Gabapentin* (Gabapentin*), 300 MG ORAL THREE TIMES A DAY, (Reported) Hydromorphone HCl/Pf (Dilaudid 2 Mg/Ml Syringe), 2 MG IM Q4HR, (Reported) Insulin Regular, Human* (Novolin R*), 0 SUBQ .SLIDING SCALE, (Reported) Losartan Potassium* (Cozaar*), 50 MG ORAL TWICE A DAY, (Reported) Magnesium Oxide (Magnesium Oxide), 400 MG ORAL BID, (Reported) Multivitamins* (Multivitamins*), 1 TAB ORAL DAILY, (Reported) Pantoprazole* (Protonix*), 40 MG ORAL DAILY, (Reported) Potassium Chloride (Potassium Chloride), 10 MEQ PO DAILY, (Reported) Prednisone* (Prednisone*), 20 MG ORAL BID Prednisone* (Prednisone*), 40 MG ORAL DAILY Rivaroxaban (Xarelto*), 10 MG ORAL BID, (Reported) Rivaroxaban (Xarelto*), 20 MG ORAL DAILY, (Reported) Valsartan/Hydrochlorothiazide 320-25MG (Diovan Hct 320-25 Mg Tablet), 1 TAB ORAL DAILY, (Reported) Scheduled PRN Acetaminophen With Codeine (T#3) (Tylenol #3 Tab*), 1 TAB ORAL Q8H PRN for For Pain Acetaminophen* (Acetaminophen 325MG Tablet*), 650 MG ORAL Q6H PRN for Fever/ Headache/Mild Pain, (Reported) Albuterol Sulfate* (Albuterol Sulfate Mdi*), 2 PUFF INH Q4H PRN for cough/ wheezing Albuterol Sulfate* (Albuterol Sulfate Hhn*), 2.5 MG HHN Q4H PRN for Shortness of Breath Albuterol Sulfate* (Albuterol Sulfate Mdi*), 2 PUFF INH Q4H PRN for cough/ wheezing Baclofen* (Baclofen*), 10 MG ORAL PRN PRN for For Pain, (Reported) Diphenhydramine Hcl* (Benadryl*), 25 MG ORAL Q4HR PRN for Itching, (Reported) Hydrocodone Bit/Acetaminophen 10-325* ([place] 10-325*), 1 TAB ORAL Q4H PRN for For Pain, (Reported) Lorazepam* (Ativan*), 0.5 MG ORAL EVERY 4 HOURS PRN for For Anxiety, (Reported) Nitroglycerin (Nitrostat), 0.4 MG SL Q5M X3 DOSES PRN for CHEST PAIN, (Reported) Oxycodone Hcl* (Oxycodone Hcl*), 10 MG ORAL Q6HR PRN for For Pain, (Reported) Polyethylene Glycol 3350* (Miralax*), 17 GM ORAL PRN PRN for Constipation, ( Reported) Temazepam* (Restoril*), 15 MG ORAL BEDTIME PRN for Insomnia, (Reported) Miscellaneous Medications Acetaminophen (Acetaminophen), 325 MG PO, (Reported) Budesonide (Budesonide), 0.5 MG IH, (Reported) Ipratropium/Albuterol Sulfate (DuoNeb 0.5-3(2.5)mg/3ml), 3 ML HHN, (Reported) Lactulose (Lactulose*), 30 ML ORAL, (Reported) Durable Medical Equipment Nebulizer (Compact Compressor Nebulizer), EA , (DME) Patient History Healthcare decision maker Resuscitation status Full Code Advanced Directive on File No Past Medical/Surgical History Past Medical/Surgical History: (1) CAD (coronary artery disease) (2) COPD (chronic obstructive pulmonary disease) (3) History of AL (myocardial infarction) Review of Systems Constitutional: Reports: weakness Eye: Reports: no symptoms ENT: Reports: no symptoms Respiratory: Reports: no symptoms Cardiovascular: Reports: no symptoms Gastrointestinal: Reports: no symptoms Genitourinary: Reports: no symptoms Musculoskeletal: Reports: back pain Skin: Reports: no symptoms Psychiatric: Reports: no symptoms Neurological: Reports: no symptoms Endocrine: Reports: no symptoms Hematologic/Lymphatic: Reports: no symptoms Physical Exam General Appearance: no apparent distress, alert HEENT: PERRL, EOMI Neck: non-tender, supple Respiratory/Chest: lungs clear, normal breath sounds Cardiovascular/Chest: normal rate, regular rhythm Abdomen: non tender, soft Extremities: non-tender, no edema, no cyanosis Neurologic: alert, oriented x 3 Last 24 Hour Vital Signs Date Time Temp Pulse Resp B/P (MAP) Pulse Ox O2 Delivery O2 Flow Rate FiO2 06/06/18 17:12 99.8 06/06/18 16:00 99.8 86 16 122/62 (82) 95 06/06/18 16:00 82 06/06/18 12:00 99.4 86 16 115/61 (79) 95 06/06/18 11:43 87 06/06/18 09:00 Room Air 06/06/18 08:00 98.0 81 16 113/64 (80) 93 06/06/18 07:39 84 06/06/18 04:00 74 06/06/18 04:00 98.1 77 19 141/81 (101) 97 06/06/18 00:00 93 06/06/18 00:00 98.5 93 18 117/77 (90) 96 06/05/18 23:10 Room Air 06/05/18 20:51 98.2 84 19 144/81 100 Room Air 06/05/18 20:29 98.2 84 19 144/81 100 Room Air 06/05/18 19:30 98.2 88 19 142/84 100 Room Air Intake and Output 06/05/18 06/06/18 19:00 07:00 Intake Total 120 ml Output Total 0 ml Balance 0 ml 120 ml Other 120 ml Output Urine Total 0 ml Laboratory Tests Test 06/06/18 07:00 White Blood Count 6.7 K/UL (4.8-10.8) Red Blood Count 4.67 M/UL (4.20-5.40) Hemoglobin 10.7 G/DL (12.0-16.0) L Hematocrit 34.2 % (37.0-47.0) L Mean Corpuscular Volume 73 FL (80-99) L Mean Corpuscular Hemoglobin 22.9 PG (27.0-31.0) L Mean Corpuscular Hemoglobin Concent 31.3 G/DL (32.0-36.0) L Red Cell Distribution Width 16.4 % (11.6-14.8) H Platelet Count 114 K/UL (150-450) L Mean Platelet Volume 7.8 FL (6.5-10.1) Neutrophils (%) (Auto) % (45.0-75.0) Lymphocytes (%) (Auto) % (20.0-45.0) Monocytes (%) (Auto) % (1.0-10.0) Eosinophils (%) (Auto) % (0.0-3.0) Basophils (%) (Auto) % (0.0-2.0) Differential Total Cells Counted 100 Neutrophils % (Manual) 73 % (45-75) Lymphocytes % (Manual) 24 % (20-45) Monocytes % (Manual) 3 % (1-10) Eosinophils % (Manual) 0 % (0-3) Basophils % (Manual) 0 % (0-2) Band Neutrophils 0 % (0-8) Platelet Estimate Decreased L Platelet Morphology Normal Hypochromasia 1+ Anisocytosis 1+ Microcytosis 1+ Prothrombin Time 10.4 SEC (9.30-11.50) Prothromb Time International Ratio 1.0 (0.9-1.1) Activated Partial Thromboplast Time 25 SEC (23-33) Hemoglobin A1c 8.1 % (4.3-6.0) H Troponin I 0.017 ng/mL (0.000-0.056) C-Reactive Protein, Quantitative 1.7 mg/dL (0.00-0.90) H Triglycerides Level 93 MG/DL (30-150) Cholesterol Level 137 MG/DL (< 200) LDL Cholesterol 78 mg/dL (<100) HDL Cholesterol 47 MG/DL (40-60) Cholesterol/HDL Ratio 2.9 (3.3-4.4) L Thyroid Stimulating Hormone (TSH) 1.851 uiU/mL (0.358-3.740) Height (Feet): 5 Height (Inches): 4.00 Weight (Pounds): 183 Medications Current Medications Medications (Trade) Dose Ordered Sig/Jael Route PRN Reason Start Time Stop Time Status Last Admin Dose Admin Acetaminophen (Tylenol) 650 mg Q4H PRN ORAL FEVER 06/05/18 19:30 07/05/18 19:29 Albuterol/ Ipratropium (Albuterol/ Ipratropium) 3 ml Q4H PRN HHN Shortness of Breath 06/05/18 19:30 06/10/18 19:29 Aspirin (ASA) 162 mg DAILY ORAL 06/06/18 09:00 07/06/18 08:59 06/06/18 10:30 Diltiazem HCl (Cardizem) 10 mg Q1H PRN IV heart rate more than 120, 06/05/18 19:30 07/05/18 19:29 Diphenhydramine HCl (Benadryl) 25 mg Q6H PRN IVP Itching 06/06/18 12:45 07/06/18 12:44 06/06/18 13:42 Enalaprilat (Vasotec) 2.5 mg Q6H PRN IV sbp more than 160 06/05/18 19:30 07/05/18 19:29 Heparin Sodium (Porcine) (Heparin 5000 units/ml) 5,000 units EVERY 12 HOURS SUBQ 06/05/18 21:00 07/05/18 20:59 Hydromorphone HCl (Dilaudid) 0.5 mg Q3H PRN IVP For Pain 06/05/18 22:30 06/12/18 22:29 06/06/18 16:42 Ketorolac Tromethamine (Toradol 30mg) 30 mg Q6H PRN IV moderate pain ( 4-6) 06/05/18 19:30 06/10/18 19:29 Nitroglycerin (Ntg) 0.4 mg Q5M PRN SL Prn Chest Pain 06/05/18 19:30 07/05/18 19:29 Ondansetron HCl (Zofran) 4 mg Q6H PRN IVP Nausea & Vomiting 06/05/18 19:30 07/05/18 19:29 Polyethylene Glycol (Miralax) 17 gm DAILYPRN PRN ORAL Constipation 06/05/18 19:30 07/05/18 19:29 Temazepam (Restoril) 15 mg HSPRN PRN ORAL Insomnia 06/05/18 19:30 06/12/18 19:29 06/05/18 22:57 Assessment/Plan Assessment/Plan (1) Cervical and Lumbar DDD (2) Cervical and Lumbar Spondylosis (3) Cervical and Lumbar Herniated disc (4) Cervical and Lumbar Radiculopathy (5) H/o Cervical and Lumbar fusion (6) Right hip pain and OA Patient will be continued on Dilaudid. D/w Dr. Rodríguez and he concurred. Thank you for the courtesy of this consultation. Ludwig Silver Jun 06, 2018 18:04
--- NOTE | 2018-06-06 18:15 | History and Physical Report ---
DATE OF ADMISSION: 06/05/2018 TIME SEEN: 1 p.m. CONSULTANTS: 1. Leo Mendoza M.D. 2. Ras Trivedi M.D. 3. Corbin Live M.D. 4. Ale Rodríguez M.D. CHIEF COMPLAINT: Chest pain and hip pain. BRIEF HISTORY: The patient is a 63-year-old female, who lives at a [facility] facility presents with one-day history of substernal chest pain, dull, intermittent, radiates to the left arm. Slight short of breath. No loss of consciousness. The patient also has some right hip pain, came to [facility], diagnosed with the above, admitted to telemetry for further care. Currently, slightly anxious in bed, oriented x3, no acute distress. PAST MEDICAL HISTORY: COPD, diabetes, hypertension, CHF. PAST SURGICAL HISTORY: Back surgery. MEDICATIONS: Include Benadryl, aspirin, Dilaudid, heparin, albuterol, Tylenol, Toradol, MiraLAX, Zofran, Restoril,Vasotec, diltiazem. ALLERGIES: Penicillin. SOCIAL HISTORY: No smoking. No alcohol. No intravenous drug abuse. FAMILY HISTORY: Noncontributory. PHYSICAL EXAMINATION: GENERAL: Slightly anxious in bed, oriented x3, no acute distress. VITAL SIGNS: Temperature is 99, pulse 86, respiratory rate 16, blood pressure 113/61. CARDIOVASCULAR: No murmur. LUNGS: Distant and clear. ABDOMEN: Bowel sounds positive. Soft, nontender, and nondistended. EXTREMITIES: No cyanosis or edema. NEUROLOGIC: The patient moves all extremities, slightly weak. LABORATORY AND DIAGNOSTIC DATA: Hemoglobin and hematocrit 10/34, platelets 114, otherwise CBC is normal. Glucose 118. AST 12. C-reactive protein 1.7. Albumin 3.3. Troponin 0.01. INR is 1.0 and PTT 25. ASSESSMENT: 1. Acute coronary syndrome. 2. Chest pain. 3. 4. Hip pain. 5. Shortness of breath. PLAN: 1. O2, pulmonary treatment., pain control, troponin q. 8h. x3, EKG in a.m., pain control. 2. CBC and BMP in the morning. 3. We will continue to follow the patient. Reymundo Graves D.O. DR: Domenica JOB#: [id number] CC:
--- NOTE | 2018-06-06 19:42 | NUR ---
HAND-OFF: Report given to VIKI Fortune.
--- NOTE | 2018-06-06 19:43 | NUR ---
NURSE NOTES: Received report from Isabelle DREW. Pt resting in bed comfortably. Denies any pain or discomfort but will notify nurse of any changes. Pt in stable condition. Call light within reach, bedside table within reach, bed in low and locked position. Continue to monitor.
[2018-06-06 20:00] VITALS: BP 122/66
--- NOTE | 2018-06-06 22:15 | Consultation ---
DATE OF CONSULTATION: 06/06/2018 CONSULTING PHYSICIAN: Corbin Live M.D. REQUESTING PHYSICIAN: Reymundo Graves D.O. CHIEF COMPLAINT: Right hip pain. HISTORY OF PRESENT ILLNESS: The patient is a 63-year-old female, who underwent a complex multilevel lumbar surgery. She presented to the [facility] for chest pain. Orthopedic consultation was obtained for further care and recommendation regarding right hip. The patient has pain that she describes in the posterior aspect of the right hip radiating down the lateral aspect of the right thigh. She reports some swelling. PAST MEDICAL HISTORY: Reviewed from the intake chart. SURGICAL HISTORY: Reviewed from the intake chart. MEDICATION: Reviewed from the intake chart. PHYSICAL EXAMINATION: GENERAL: The patient is alert and oriented. She has a well-healed incision of the posterior lumbar spine. She has pain on the peritrochanteric area radiating down the lateral aspect of the right hip. She is pretty uncomfortable with range of motion of the trunk. Sensation in the lower extremity is grossly intact to light touch. Reflexes +2. ASSESSMENT: 1. Status post multilevel lumbar fusion. 2. Right hip pain. DISCUSSION: At this point, she reports to me that she has had two MRIs, which show some type of ligament tear and the most recent was after sustaining several falls where an MRI was performed, which showed possible tear of the ligament. Since that last MRI, she has not had any additional falls. The MRI as reported did not show any obvious fracture and the only positive findings were on the hip, was of the ligament tear, which I believe is the labrum. At this point, I think she has a degenerative labral tear. This is not the source of her pain. If anything, the pain that she is having given the distribution is partly related to lower back. What I recommend is a follow up with Surgery to make sure there is no failure of the hardware or any issues that is related to irritation of the L3 or L4 nerve grade from the surgery. I will communicate my findings my findings with Dr. Graves so that he can appropriately manage the care. Corbin Live M.D. DR: STARR JOB#: [id number] CC:
[2018-06-07 00:19] VITALS: BP 132/70
[2018-06-07] MEDS: DiphenhydrAMINE 50mg/ml Inj IVP PRN ×4 (01:42→22:09)
[2018-06-07] MEDS: Hydromorphone 0.5mg/0.5ml inj IVP PRN ×6 (01:42→22:00)
[2018-06-07 04:21] VITALS: BP 139/88
--- NOTE | 2018-06-07 07:15 | NUR ---
NURSE NOTES: I received the patient awake and alert resting in bed. Bed in the lowest position and call light within reach. Patient does not display any signs of distress or SOB. I will continue to monitor the patient and implement care.
--- NOTE | 2018-06-07 07:39 | NUR ---
NURSE NOTES: Patient refused lab draws this morning. Dr. Graves made aware.
--- NOTE | 2018-06-07 07:40 | NUR ---
HAND-OFF: Report given to Isabelle DREW. endorsed quiñones of care.
[2018-06-07 08:00] VITALS: BP 131/70
--- NOTE | 2018-06-07 08:45 | General Progress Note ---
Assessment/Plan Assessment/Plan (1) Cervical and Lumbar DDD (2) Cervical and Lumbar Spondylosis (3) Cervical and Lumbar Herniated disc (4) Cervical and Lumbar Radiculopathy (5) H/o Cervical and Lumbar fusion (6) Right hip pain and OA Patient will be continued on Dilaudid. D/w Dr. Rodríguez and he concurred. Subjective Date patient seen: Jun 07, 2018 Time patient seen: 07:45 - am Constitutional: Reports: weakness HEENT: Reports: no symptoms Cardiovascular: Reports: no symptoms Respiratory: Reports: no symptoms Gastrointestinal/Abdominal: Reports: no symptoms Genitourinary: Reports: no symptoms Neurologic/Psychiatric: Reports: weakness Endocrine: Reports: no symptoms Hematologic/Lymphatic: Reports: no symptoms Allergies: Coded Allergies: ORANGE (Verified Allergy, Severe, Anaphylaxis, 06/06/18) PENICILLINS (Unverified Allergy, Unknown, 10/05/17) Subjective In bed and showing no signs of pain or distress. Pain has been tolerated on the Dilaudid, she has no new complaints at this time. Objective Last 24 Hour Vital Signs Date Time Temp Pulse Resp B/P (MAP) Pulse Ox O2 Delivery O2 Flow Rate FiO2 06/07/18 08:00 99.5 88 18 131/70 (90) 97 06/07/18 06:54 97.1 06/07/18 04:33 72 06/07/18 04:21 97.1 79 18 139/88 (105) 96 06/07/18 00:39 72 06/07/18 00:19 99.5 70 18 132/70 (90) 96 06/06/18 21:00 Room Air 06/06/18 20:00 82 06/06/18 20:00 99.1 85 18 122/66 (84) 98 06/06/18 16:00 99.8 86 16 122/62 (82) 95 06/06/18 16:00 82 06/06/18 12:00 99.4 86 16 115/61 (79) 95 06/06/18 11:43 87 06/06/18 09:00 Room Air Intake and Output 06/06/18 06/07/18 18:59 06:59 Intake Total 360 ml Balance 360 ml Intake Oral 360 ml # Voids 1 2 Height (Feet): 5 Height (Inches): 4.00 Weight (Pounds): 183 General Appearance: no apparent distress, alert EENT: PERRL/EOMI, normal ENT inspection Neck: non-tender, normal alignment Cardiovascular: normal rate, regular rhythm Respiratory/Chest: decreased breath sounds Abdomen: non tender, soft Extremities: non-tender Edema: trace edema Neurologic: alert, oriented x 3 Ludwig Silver Jun 07, 2018 08:45
[2018-06-07] MEDS: Heparin 5000 units/ml inj SUBQ SCH ×2 (09:00→21:00)
--- NOTE | 2018-06-07 09:22 | NUR ---
P.T Note: P.T consult received. Chart reviewed, P.T evaluation attempted however pt adamantly refused to participate in P.T evaluation despite explaining the benefits of P.T and potential risk of prolonged bedrest. Pt stated " I am ok and I do not need P.T services. RN notified. Will DC P.T.
[2018-06-07] MEDS: Aspirin Baby 81mg ORAL SCH (10:26)
--- NOTE | 2018-06-07 10:46 | Cardiac Electrophysiology PN ---
Subjective Subjective [id number] Objective Last 24 Hour Vital Signs Date Time Temp Pulse Resp B/P (MAP) Pulse Ox O2 Delivery O2 Flow Rate FiO2 06/07/18 09:00 Room Air 06/07/18 08:00 99.5 88 18 131/70 (90) 97 06/07/18 06:54 97.1 06/07/18 04:33 72 06/07/18 04:21 97.1 79 18 139/88 (105) 96 06/07/18 00:39 72 06/07/18 00:19 99.5 70 18 132/70 (90) 96 06/06/18 21:00 Room Air 06/06/18 20:00 82 06/06/18 20:00 99.1 85 18 122/66 (84) 98 06/06/18 16:00 99.8 86 16 122/62 (82) 95 06/06/18 16:00 82 06/06/18 12:00 99.4 86 16 115/61 (79) 95 06/06/18 11:43 87 Intake and Output 06/06/18 06/07/18 18:59 06:59 Intake Total 360 ml Balance 360 ml Intake Oral 360 ml # Voids 1 2 Microbiology Date/Time Source Procedure Growth Status 06/05/18 15:23 Nasal Nares Influenza Types A,B Antigen (ONDINA) - Final Complete Ras Trivedi MD Jun 07, 2018 10:46
[2018-06-07] MEDS ORDERED: Lexiscan 0.4mg/5ml syringe IV PRN (11:00)
--- NOTE | 2018-06-07 11:14 | Pulmonology Progress Note ---
Assessment/Plan Problems: (1) Acute bronchitis (2) COPD (chronic obstructive pulmonary disease) (3) ACS (acute coronary syndrome) (4) Costochondritis (5) History of OH (myocardial infarction) (6) CAD (coronary artery disease) (7) Previous back surgery (8) Left-sided weakness Assessment/Plan check sputum add antibiotics antitussives respiratory treatment check electrolytes short course of steroids Subjective ROS Limited/Unobtainable: No Constitutional: Reports: no symptoms HEENT: Repors: no symptoms Respiratory: Reports: no symptoms Allergies: Coded Allergies: ORANGE (Verified Allergy, Severe, Anaphylaxis, 06/06/18) PENICILLINS (Unverified Allergy, Unknown, 10/05/17) Objective Last 24 Hour Vital Signs Date Time Temp Pulse Resp B/P (MAP) Pulse Ox O2 Delivery O2 Flow Rate FiO2 06/07/18 09:00 Room Air 06/07/18 08:00 99.5 88 18 131/70 (90) 97 06/07/18 06:54 97.1 06/07/18 04:33 72 06/07/18 04:21 97.1 79 18 139/88 (105) 96 06/07/18 00:39 72 06/07/18 00:19 99.5 70 18 132/70 (90) 96 06/06/18 21:00 Room Air 06/06/18 20:00 82 06/06/18 20:00 99.1 85 18 122/66 (84) 98 06/06/18 16:00 99.8 86 16 122/62 (82) 95 06/06/18 16:00 82 06/06/18 12:00 99.4 86 16 115/61 (79) 95 06/06/18 11:43 87 Intake and Output 06/06/18 06/07/18 18:59 06:59 Intake Total 360 ml Balance 360 ml Intake Oral 360 ml # Voids 1 2 General Appearance: WD/WN HEENT: normocephalic, atraumatic Respiratory/Chest: chest wall non-tender, rhonchi Breasts: no masses Cardiovascular: normal peripheral pulses Genitourinary: normal external genitalia Extremities: no clubbing Skin: no rash Neurologic/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: 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 II-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 grossly normal, no motor/sensory deficits Lymphatic: no neck adenopathy Microbiology Date/Time Source Procedure Growth Status 06/05/18 15:23 Nasal Nares Influenza Types A,B Antigen (ONDINA) - Final Complete Current Medications Medications (Trade) Dose Ordered Sig/Jael Route PRN Reason Start Time Stop Time Status Last Admin Dose Admin Acetaminophen (Tylenol) 650 mg Q4H PRN ORAL FEVER 06/05/18 19:30 07/05/18 19:29 Albuterol/ Ipratropium (Albuterol/ Ipratropium) 3 ml Q4H PRN HHN Shortness of Breath 06/05/18 19:30 06/10/18 19:29 Aspirin (ASA) 162 mg DAILY ORAL 06/06/18 09:00 07/06/18 08:59 06/07/18 10:26 Diltiazem HCl (Cardizem) 10 mg Q1H PRN IV heart rate more than 120, 06/05/18 19:30 07/05/18 19:29 Diphenhydramine HCl (Benadryl) 25 mg Q6H PRN IVP Itching 06/06/18 12:45 07/06/18 12:44 06/07/18 07:17 Enalaprilat (Vasotec) 2.5 mg Q6H PRN IV sbp more than 160 06/05/18 19:30 07/05/18 19:29 Heparin Sodium (Porcine) (Heparin 5000 units/ml) 5,000 units EVERY 12 HOURS SUBQ 06/05/18 21:00 07/05/18 20:59 06/06/18 20:35 Hydromorphone HCl (Dilaudid) 0.5 mg Q3H PRN IVP For Pain 06/05/18 22:30 06/12/18 22:29 06/07/18 10:26 Ketorolac Tromethamine (Toradol 30mg) 30 mg Q6H PRN IV moderate pain ( 4-6) 06/05/18 19:30 06/10/18 19:29 Nitroglycerin (Ntg) 0.4 mg Q5M PRN SL Prn Chest Pain 06/05/18 19:30 07/05/18 19:29 Ondansetron HCl (Zofran) 4 mg Q6H PRN IVP Nausea & Vomiting 06/05/18 19:30 07/05/18 19:29 Polyethylene Glycol (Miralax) 17 gm DAILYPRN PRN ORAL Constipation 06/05/18 19:30 07/05/18 19:29 Regadenoson (Lexiscan) 0.4 mg ONCE PRN IV CARDIOLOGY 06/07/18 11:00 06/09/18 10:59 Temazepam (Restoril) 15 mg HSPRN PRN ORAL Insomnia 06/05/18 19:30 06/12/18 19:29 06/05/18 22:57 Leo Mendoza MD Jun 07, 2018 11:14
[2018-06-07 11:46] VITALS: BP 141/77
[2018-06-07] MEDS: Solu-MEDROL 40mg Inj IVP SCH ×2 (13:55→21:53)
--- NOTE | 2018-06-07 15:00 | Consultation ---
DATE OF CONSULTATION: 06/07/2018 CARDIOLOGY CONSULTATION CONSULTING PHYSICIAN: Ras Trivedi M.D. REFERRING PHYSICIAN: Reymundo Graves D.O. REASON FOR CONSULTATION: Shortness of breath and chest pain. HISTORY OF PRESENT ILLNESS: The patient is a 63-year-old lady with history of hypertension, diabetes, severe COPD, and CVA with left-sided weakness, who presented to the emergency room for increasing chest pain and shortness of breath. The patient also felt that she had fevers. Her chest pain was left-sided with radiation to left shoulder. The patient had multiple admissions to [facility] for which she had undergone a stress test in the past that had been negative. REVIEW OF SYSTEMS: Negative other than what was mentioned in the history of present illness. PAST MEDICAL HISTORY: 1. Hypertension. 2. COPD. 3. Congestive heart failure with diastolic dysfunction. 4. Questionable history of coronary artery disease 5. Previous back surgery and left-sided weakness. PHYSICAL EXAMINATION: VITAL SIGNS: Show blood pressure is 131/70, pulse 88, respirations 18, and temperature 98.5. HEAD AND NECK: Shows no JVD. LUNGS: Decreased wheezes bilaterally. CARDIOVASCULAR: Shows regular S1 and S2 with no gallop. ABDOMEN: Soft. EXTREMITIES: No pitting edema. LABORATORY DATA: White count 6.7, hemoglobin 10.7, hematocrit 34.12, platelet count is 114,000. Sodium 140, potassium 3.7, BUN of 15, creatinine 0.8. Troponin negative x2. ASSESSMENT AND PLAN: 1. Atypical chest pain. The patient will be ruled out for myocardial infarction. We will schedule the patient for nuclear stress test and echocardiogram for further evaluation. 2. Hypertension. Blood pressure is currently stable. 3. Questionable congestive heart failure. BNP is within normal range. of platelets is most likely due to the patient's underlying COPD. 4. Status post spine surgery and back pain. 5. Morbid obesity. 6. Hyperlipidemia, on Lipitor. Thank you very much, Dr. Graves, for allowing me to participate in the care of this patient. Please do not hesitate to contact me for any questions regarding my evaluation. Ras Trivedi M.D. DR: Dio JOB#: [id number] CC:
--- NOTE | 2018-06-07 15:33 | General Progress Note ---
Assessment/Plan Problem List: (1) HTN (hypertension) ICD Codes: I10 - Essential (primary) hypertension SNOMED: 56120278 (2) Diabetes ICD Codes: E11.9 - Type 2 diabetes mellitus without complications SNOMED: 22807287 (3) Diarrhea ICD Codes: R19.7 - Diarrhea, unspecified SNOMED: 23689968 (4) Chest pain ICD Codes: R07.9 - Chest pain, unspecified SNOMED: 66254856 Qualifiers: Qualified Codes: R07.9 - Chest pain, unspecified (5) Chronic pain ICD Codes: G89.29 - Other chronic pain SNOMED: 26303030 (6) COPD (chronic obstructive pulmonary disease) ICD Codes: J44.9 - Chronic obstructive pulmonary disease, unspecified SNOMED: 13596883 (7) ACS (acute coronary syndrome) ICD Codes: I24.9 - Acute ischemic heart disease, unspecified SNOMED: 660551161 Status: unchanged Assessment/Plan pt diet cardio f/u cbc bmp am gi eval Subjective Constitutional: Reports: weakness Gastrointestinal/Abdominal: Reports: nausea Allergies: Coded Allergies: ORANGE (Verified Allergy, Severe, Anaphylaxis, 06/06/18) PENICILLINS (Unverified Allergy, Unknown, 10/05/17) All Systems: reviewed and negative except above Subjective sl cp Objective Last 24 Hour Vital Signs Date Time Temp Pulse Resp B/P (MAP) Pulse Ox O2 Delivery O2 Flow Rate FiO2 06/07/18 11:46 88 06/07/18 11:46 100.0 84 18 141/77 (98) 95 06/07/18 10:56 100.0 06/07/18 09:00 Room Air 06/07/18 08:00 99.5 88 18 131/70 (90) 97 06/07/18 04:33 72 06/07/18 04:21 97.1 79 18 139/88 (105) 96 06/07/18 00:39 72 06/07/18 00:19 99.5 70 18 132/70 (90) 96 06/06/18 21:00 Room Air 06/06/18 20:00 82 06/06/18 20:00 99.1 85 18 122/66 (84) 98 06/06/18 16:00 99.8 86 16 122/62 (82) 95 06/06/18 16:00 82 Intake and Output 06/06/18 06/07/18 19:00 07:00 Intake Total 360 ml Balance 360 ml Intake Oral 360 ml # Voids 1 2 Height (Feet): 5 Height (Inches): 4.00 Weight (Pounds): 183 General Appearance: alert EENT: normal ENT inspection Neck: normal alignment Cardiovascular: normal peripheral pulses, normal rate, regular rhythm Respiratory/Chest: chest wall non-tender, lungs clear, normal breath sounds Abdomen: normal bowel sounds, non tender, soft Extremities: normal inspection Edema: no edema noted Arm (L), no edema noted Arm (R), no edema noted Leg (L), no edema noted Leg (R), no edema noted Pedal (L), no edema noted Pedal (R), no edema noted Generalized Neurologic: responsive, motor weakness Skin: normal pigmentation, warm/dry Reymundo Graves DO Jun 07, 2018 15:33
[2018-06-07 16:00] VITALS: BP 156/91
--- NOTE | 2018-06-07 16:09 | NUR ---
INSURANCE CLINICALS AND REVIEWS FAXED TO: IPA: ANN CABELLOM: HARDEEP T#: [phone] F#:[phone]
--- NOTE | 2018-06-07 16:37 | GI Initial Consult Note ---
History of Present Illness General Date patient seen: Jun 07, 2018 Time patient seen: 16:30 Reason for Hospitalization: Chest Pain Referring physician: Star Reason for Consultation: Abdominal pain Present Illness HPI Patient presents with 3 days of increasing chest pain. She also has a cough and shortness of breath. She's felt slightly feverish also but no documented temperature. The cough is not productive. She does not get a flu vaccination. She's had pneumonia in the past. She claims she's had a heart attack in the past also. When she's had upper respiratory problems she usually doesn't get chest pain and this is new for her. She denies any calf pain or swelling. She is recovering from a stroke and still has some left-sided weakness. This is not increased at this time and she denies headache. She was recently hospitalized in March at [facility] for similar complaints. Allegedly the workup was negative. In the past she has been seen for drug-seeking behavior. No palpitations, nausea, vomiting, diarrhea, dysuria, abdominal pain, depression , visual changes. Borderline diabetes. GI consulted for abdominal pain. The patient was seen, awake alert and oriented x4 in no apparent distress. The patient has complaint of severe epigastric pain. Stated that yesterday she had an episode emesis of hematemesis with approximately 50 cc of output. In addition, the patient complains of left-sided numbness and tingling to her extremities and constant pain. The patient denies any history of endoscopic or colonoscopy. Labs reviewed; patient presents today with microcytic anemia and elevated HG A1c. Noted that she had negative troponin levels. The patient also reports that she does not have diabetes, states that it is "borderline." Home Meds Active Scripts Albuterol Sulfate* (ALBUTEROL SULFATE MDI*) 8.5 Gm Hfa.aer.ad, 2 PUFF INH Q4H PRN for cough/wheezing, #1 EA 0 Refills Prov:Shadi Rose MD 03/18/18 Albuterol Sulfate* (ALBUTEROL SULFATE HHN*) 2.5 Mg/3 Ml Vial.neb, 2.5 MG HHN Q4H PRN for Shortness of Breath, #25 VIAL Prov:RetinoStevensonirose M.DNicky 10/05/17 Nebulizer (Compact Compressor Nebulizer) 1 Each Each, EA MC, #1 Prov:Retino,Clairose M.D. 10/05/17 Albuterol Sulfate* (ALBUTEROL SULFATE MDI*) 8.5 Gm Hfa.aer.ad, 2 PUFF INH Q4H PRN for cough/wheezing, #1 EA 0 Refills Prov:RetinKera swiftse M.D. 10/05/17 Prednisone* (PREDNISONE*) 20 Mg Tablet, 40 MG ORAL DAILY for 5 Days, #10 TAB Prov:RetinoKerase M.D. 10/05/17 Acetaminophen With Codeine (T#3) (TYLENOL #3 TAB*) 1 Each Tablet, 1 TAB ORAL Q8H PRN for For Pain, #10 TAB Prov:Pamella Shaikh DO 10/13/14 Azithromycin* (ZITHROMAX*) 250 Mg Tablet, 250 MG ORAL DAILY, #6 TAB Prov:FareeddoPamella null DO 10/13/14 Prednisone* (PREDNISONE*) 20 Mg Tablet, 20 MG ORAL BID, #5 TAB Prov:Pamella Shaikh DO 10/13/14 Albuterol Sulfate* (ALBUTEROL SULFATE MDI*) 8.5 Gm Hfa.aer.ad, 2 PUFF INH Q6H, # 1 EA Prov:FareedcaitlinPamella 10/13/14 Reported Medications Insulin Regular, Human* (NOVOLIN R*) 100 Unit/1 Ml Vial, 0 SUBQ .SLIDING SCALE, UNITS 02/13/18 Rivaroxaban (XARELTO*) 10 Mg Tablet, 20 MG ORAL DAILY, #30 TAB 0 Refills 02/13/18 Rivaroxaban (XARELTO*) 10 Mg Tablet, 10 MG ORAL BID, #30 TAB 0 Refills 02/13/18 Potassium Chloride (POTASSIUM CHLORIDE) 10 Meq Tab.er.prt, 10 MEQ PO DAILY, TAB 02/13/18 Escitalopram Oxalate* (LEXAPRO*) 20 Mg Tablet, 20 MG ORAL BID, TAB 02/13/18 Acetaminophen* (ACETAMINOPHEN 325MG TABLET*) 325 Mg Tablet, 650 MG ORAL Q6H PRN for Fever/Headache/Mild Pain, TAB 11/04/17 Nitroglycerin (NITROSTAT) 0.4 Mg Tab.subl, 0.4 MG SL Q5M X3 DOSES PRN for CHEST PAIN, #25 TAB 0 Refills 11/04/17 Multivitamins* (MULTIVITAMINS*) 1 Each Tablet, 1 TAB ORAL DAILY, TAB 0 Refills 11/04/17 Hydrocodone Bit/Acetaminophen 10-325* (NORCO 10-325*) 1 Each Tablet, 1 TAB ORAL Q4H PRN for For Pain, TAB 0 Refills PRN PAIN 11/04/17 Temazepam* (RESTORIL*) 15 Mg Capsule, 15 MG ORAL BEDTIME PRN for Insomnia, CAP 10/05/17 Amlodipine Besylate* (AMLODIPINE BESYLATE*) 10 Mg Tablet, 10 MG ORAL DAILY, TAB 10/05/17 Lactulose (LACTULOSE*) 20 Gm/30 Ml Solution, 30 ML ORAL, ML 0 Refills 12/08/16 Ferrous Sulfate* (FERROUS SULFATE*) 325 Mg Tablet, 325 MG ORAL THREE TIMES A DAY , #90 TAB 0 Refills 12/08/16 Ipratropium/Albuterol Sulfate (DuoNeb 0.5-3(2.5)mg/3ml) 3 Ml Ampul.neb, 3 ML HHN , EA 12/08/16 Doxazosin Mesylate* (DOXAZOSIN MESYLATE*) 1 Mg Tablet, 1 MG ORAL HS, TAB 12/08/16 Docusate Sodium* (DOCUSATE SODIUM*) 250 Mg Capsule, 250 MG ORAL TWICE A DAY, CAP 12/08/16 Hydromorphone HCl/Pf (DILAUDID 2 MG/ML SYRINGE) 2 Mg/1 Ml Syringe, 2 MG IM Q4HR 12/08/16 Cyclobenzaprine Hcl* (FLEXERIL*) 10 Mg Tablet, 10 MG ORAL THREE TIMES A DAY, TAB 12/08/16 Budesonide (BUDESONIDE) 0.5 Mg/2 Ml Ampul.neb, 0.5 MG IH, EA 12/08/16 Diphenhydramine Hcl* (BENADRYL*) 25 Mg Capsule, 25 MG ORAL Q4HR PRN for Itching , CAP 12/08/16 Baclofen* (BACLOFEN*) 10 Mg Tablet, 10 MG ORAL PRN PRN for For Pain, TAB 12/08/16 Atorvastatin Calcium* (LIPITOR*) 40 Mg Tablet, 40 MG ORAL BEDTIME, #30 TAB 0 Refills 12/08/16 Lorazepam* (ATIVAN*) 0.5 Mg Tablet, 0.5 MG ORAL EVERY 4 HOURS PRN for For Anxiety, TAB 12/08/16 Aspirin* (ASPIR 81*) 81 Mg Tablet.dr, 81 MG ORAL DAILY, TAB 12/08/16 Acetaminophen (Acetaminophen) 325 Mg Capsule, 325 MG PO, #2 CAP 12/08/16 Pantoprazole* (PROTONIX*) 40 Mg Tablet.dr, 40 MG ORAL DAILY, TAB 12/08/16 Oxycodone Hcl* (OXYCODONE HCL*) 10 Mg Tablet, 10 MG ORAL Q6HR PRN for For Pain, TAB 12/08/16 Gabapentin* (GABAPENTIN*) 300 Mg Capsule, 300 MG ORAL THREE TIMES A DAY, CAP 0 Refills 12/08/16 Polyethylene Glycol 3350* (MIRALAX*) 17 Gm Powd.pack, 17 GM ORAL PRN PRN for Constipation, PACKET 12/08/16 Magnesium Oxide (Magnesium Oxide) 400 Mg Tablet, 400 MG ORAL BID, #30 TAB 0 Refills 12/08/16 Losartan Potassium* (COZAAR*) 50 Mg Tablet, 50 MG ORAL TWICE A DAY, TAB 12/08/16 Aspirin* (ASPIRIN*) 325 Mg Tablet, 325 MG ORAL DAILY, TAB 07/23/13 Furosemide (Furosemide) 80 Mg Tab, 20 MG ORAL BID, TAB 07/23/13 Valsartan/Hydrochlorothiazide 320-25MG (DIOVAN HCT 320-25 MG TABLET) 1 Each Tablet, 1 TAB ORAL DAILY, TAB 07/23/13 Med list reviewed/reconciled: Yes Allergies: Coded Allergies: ORANGE (Verified Allergy, Severe, Anaphylaxis, 06/06/18) PENICILLINS (Unverified Allergy, Unknown, 10/05/17) Patient History History Provided By: Patient, Medical Record PM Narrative Past Medical History: see triage record Past Surgical History: other - Back surgery Social History: Denies: smoking, alcohol use, drug use 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: PMH: Agreed; PSxH: Agreed Nursing 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-PM Past Medical History: No History, Except For Hx Cardiac Problems: Yes Hx Hypertension: Yes Hx Pacemaker: No Hx Asthma: Yes Hx COPD: Yes Hx Diabetes: No Hx Cancer: No Hx Gastrointestinal Problems: No Hx Dialysis: No Hx Neurological Problems: Yes Hx Cerebrovascular Accident: Yes Hx Seizures: No Social History: Denies: smoking, alcohol use, drug use, other Review of Systems All Other Systems: negative except mentioned in HPI Physical Exam Vital Signs Date Time Temp Pulse Resp B/P (MAP) Pulse Ox O2 Delivery O2 Flow Rate FiO2 06/05/18 14:35 98.2 103 26 123/68 99 Room Air Sp02 EP Interpretation: reviewed, normal General Appearance: well appearing, no apparent distress, alert, obese Head: normocephalic EENT: PERRL/EOMI, normal ENT inspection Neck: supple Respiratory: normal breath sounds, no respiratory distress Cardiovascular: normal rate Gastrointestinal: normal inspection, non tender, soft, normal bowel sounds, non -distended Rectal: deferred Genitourinary: no CVA tenderness Musculoskeletal: normal inspection, back normal, other - Left-sided weakness Neurologic: normal inspection, alert, oriented x3, responsive Psychiatric: normal inspection, judgement/insight normal, memory normal Skin: normal inspection, normal color, no rash, warm/dry, palpation normal, well hydrated Lymphatic: normal inspection, no adenopathy Current Medications Current Medications Medications (Trade) Dose Ordered Sig/Jael Route PRN Reason Start Time Stop Time Status Last Admin Dose Admin Acetaminophen (Tylenol) 650 mg Q4H PRN ORAL FEVER 06/05/18 19:30 07/05/18 19:29 Albuterol/ Ipratropium (Albuterol/ Ipratropium) 3 ml Q4H PRN HHN Shortness of Breath 06/05/18 19:30 06/10/18 19:29 Aspirin (ASA) 162 mg DAILY ORAL 06/06/18 09:00 07/06/18 08:59 06/07/18 10:26 Diltiazem HCl (Cardizem) 10 mg Q1H PRN IV heart rate more than 120, 06/05/18 19:30 07/05/18 19:29 Diphenhydramine HCl (Benadryl) 25 mg Q6H PRN IVP Itching 06/06/18 12:45 07/06/18 12:44 06/07/18 16:21 Duloxetine HCl (Cymbalta) 30 mg DAILY ORAL 06/08/18 09:00 07/08/18 08:59 Enalaprilat (Vasotec) 2.5 mg Q6H PRN IV sbp more than 160 06/05/18 19:30 07/05/18 19:29 Heparin Sodium (Porcine) (Heparin 5000 units/ml) 5,000 units EVERY 12 HOURS SUBQ 06/05/18 21:00 07/05/18 20:59 06/06/18 20:35 Hydromorphone HCl (Dilaudid) 0.5 mg Q3H PRN IVP For Pain 06/05/18 22:30 06/12/18 22:29 06/07/18 13:55 Levofloxacin 100 ml @ 100 mls/hr Q24H IVPB 06/07/18 14:00 06/14/18 13:59 06/07/18 14:11 Methylprednisolone Sodium Succinate (Solu-MEDROL) 40 mg EVERY 8 HOURS IVP 06/07/18 14:00 07/07/18 13:59 06/07/18 13:55 Nitroglycerin (Ntg) 0.4 mg Q5M PRN SL Prn Chest Pain 06/05/18 19:30 07/05/18 19:29 Ondansetron HCl (Zofran) 4 mg Q6H PRN IVP Nausea & Vomiting 06/05/18 19:30 07/05/18 19:29 Polyethylene Glycol (Miralax) 17 gm DAILYPRN PRN ORAL Constipation 06/05/18 19:30 07/05/18 19:29 Promethazine HCl/ Codeine (Phenergan with Codeine) 5 ml Q4H PRN ORAL For Cough 06/07/18 11:15 07/07/18 11:14 Regadenoson (Lexiscan) 0.4 mg ONCE PRN IV CARDIOLOGY 06/07/18 11:00 06/09/18 10:59 Temazepam (Restoril) 15 mg HSPRN PRN ORAL Insomnia 06/05/18 19:30 06/12/18 19:29 06/05/18 22:57 Theophylline (Андрей-Dur) 100 mg EVERY 12 HOURS ORAL 06/07/18 21:00 07/07/18 20:59 GI: Plan Problems: (1) Anemia (2) PUD (peptic ulcer disease) (3) Chest pain (4) Diarrhea (5) Diabetes Plan At this time the patient is on a regular diet, currently denying any nausea or vomiting. Follow-up cardiac recommendations, pending a stress test for tomorrow. We will consider endoscopy to evaluate her abdominal pain the following day. anemia work up OB stool r/o GI bleed monitor H&H, prn transfusions bowel regime ppi fu labs Patient could benefit from a colonoscopy, can be done as outpatient. Discussed with Dr. Hurst. Thank you for this patient referral, we will follow. The patient was seen and examined at bedside and all new and available data was reviewed in the patients chart. I agree with the above findings, impression and plan. (Patient seen earlier today. Signature stamp does not reflect patient encounter time.). - MD Rose MendezDignity Health [facility] - GilbertMaximilian DEVELOPMENT TECHNOLOGIST Jun 07, 2018 16:37
[2018-06-07] MEDS: Promethazine/Codeine 5ml UD ORAL PRN ×2 (16:42→22:07)
--- NOTE | 2018-06-07 16:54 | NUR ---
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 101.1 HR 92 RR 18 B/P 156/91 RA 98% IS: LEVAQUIN IV SOLU MEDROL IV PROTONIX PO TELE STATUS
--- NOTE | 2018-06-07 19:29 | NUR ---
HAND-OFF: Report given to VIKI Olvera.
--- NOTE | 2018-06-07 19:40 | NUR ---
NURSE NOTES: RECEIVED PATIENT RESTING IN BED, NO COMPLAINTS OF PAIN AT THIS TIME: FALL PRECAUTIONS IN PLACE: CALL LIGHT AND BEDSIDE TABLE WITHIN REACH, BED IN LOW POSITION AND BED ALARM ON. INSTRUCTED PATIENT ON NPO STATUS AFTER MIDNIGHT FOR STRESS TEST IN AM, PATIENT VERBALIZED UNDERSTANDING. PLAN OF CARE REVIEWED.
[2018-06-07 20:00] VITALS: BP 148/92
[2018-06-07] MEDS: Theophylline ER 100mg ORAL SCH (21:53)
[2018-06-08] VITALS: BP 149/87
[2018-06-08] MEDS: Hydromorphone 0.5mg/0.5ml inj IVP PRN ×8 (01:01→23:59)
--- NOTE | 2018-06-08 02:45 | Consultation ---
DATE OF CONSULTATION: 06/07/2018 NOTE: POOR AUDIO CONSULTING PHYSICIAN: Yazan Mars M.D. REFERRING PHYSICIAN: Reymundo Graves D.O. HISTORY OF PRESENT ILLNESS: This is a 63-year-old female patient. The patient was admitted to [facility] secondary to chest pain. The patient does have some significant depression. She talks extensively about how she she has a spinal fracture some of her spine taken out, it caused her to have difficulty walking for over a year and then she fell down and now she has at this surgery and she states she keeps going supportive physical recovering that was causing her to have depression, but denies suicidal ideation, but states she has intermittent depression. PAST MEDICAL HISTORY: Further medical problems, this patient has overlying history of coronary artery disease, left-sided weakness, and status post [place]. ALLERGIES: She is allergic to penicillin. SUBSTANCE ABUSE HHISTORY: Denies any recent drug or alcohol use. PAIN ASSESSMENT: 02/07. DEVELOPMENTAL PROBLEMS: Denies. FAMILY PSYCHIATRIC HISTORY: Denies. PAST PSYCHIATRIC HISTORY: History of major depressive disorder, mild, recurrent without psychotic features. No secondary . MENTAL STATUS EXAMINATION: This is a female patient. She is a 63-year-old female patient, calm and cooperative. No psychomotor agitation or retardation. Mood is euthymic. Affect is . Mood, denies auditory or visual hallucinations or delusions. Denies suicidal or homicidal thoughts. Insight and judgment is fair. DIAGNOSIS: PSYCHIATRIC: Major depressive disorder, mild, recurrent without psychotic features. MEDICAL: Chronic pain and status post [place]. PSYCHOSIS: Financial. PLAN: To treatment her with psychotropic medication regimen consisting of Cymbalta at a dose of 30 mg daily to help her with depression and anxiety and also pain prophylaxis and I am going to provide her with 20 minutes of supportive psychotherapy. Seen and assessed at the bedside. I would like to thank Dr. Reymundo Graves for this interesting consultation. Yazan Mars M.D. DR: JESUS/BETO JOB#: [id number] CC:
[2018-06-08 04:00] VITALS: BP 159/82
[2018-06-08] MEDS: DiphenhydrAMINE 50mg/ml Inj IVP PRN ×3 (04:17→18:00)
[2018-06-08] MEDS: Solu-MEDROL 40mg Inj IVP SCH (05:48)
--- NOTE | 2018-06-08 07:20 | NUR ---
NURSE NOTES: I received the patient resting in bed. Patient does not display any signs of distress or SOB. Bed in the lowest position and call light within reach. I will continue to monitor the patient and implement care.
--- NOTE | 2018-06-08 07:26 | NUR ---
HAND-OFF: Report given to Elma NEWELL RN. PATIENT ASLEEP, NO SIGNS OF DISTRESS NOTED.
[2018-06-08] MEDS: Theophylline ER 100mg ORAL SCH ×2 (07:59→21:27)
[2018-06-08 08:00] VITALS: BP 154/86
[2018-06-08] MEDS: Heparin 5000 units/ml inj SUBQ SCH ×2 (08:00→21:00)
[2018-06-08] MEDS: Aspirin Baby 81mg ORAL SCH (08:02)
[2018-06-08 08:28] LABS: HEMOGLOBIN 11.5 G/DL (12.0-16.0); MEAN CORPUSCULAR VOLUME 72 FL (80-99); PLATELET COUNT 113 K/UL (150-450); RED BLOOD COUNT 5.12 M/UL (4.20-5.40); RED CELL DISTRIBUTION WIDTH 16.7 % (11.6-14.8); WHITE BLOOD COUNT 4.2 K/UL (4.8-10.8)
[2018-06-08 08:52] LABS: % IRON SATURATION 13 % (15-50); IRON 36 ug/dL (50-175); TOTAL IRON BINDING CAPACITY 275 ug/dL (250-450)
--- NOTE | 2018-06-08 09:01 | General Progress Note ---
Assessment/Plan Assessment/Plan (1) Cervical and Lumbar DDD (2) Cervical and Lumbar Spondylosis (3) Cervical and Lumbar Herniated disc (4) Cervical and Lumbar Radiculopathy (5) H/o Cervical and Lumbar fusion (6) Right hip pain and OA Patient will be continued on Dilaudid. D/w Dr. Rodríguez and he concurred. Subjective Date patient seen: Jun 08, 2018 Time patient seen: 08:30 - am Constitutional: Reports: weakness HEENT: Reports: no symptoms Cardiovascular: Reports: no symptoms Respiratory: Reports: no symptoms Gastrointestinal/Abdominal: Reports: no symptoms Genitourinary: Reports: no symptoms Neurologic/Psychiatric: Reports: weakness Endocrine: Reports: no symptoms Hematologic/Lymphatic: Reports: no symptoms Allergies: Coded Allergies: ORANGE (Verified Allergy, Severe, Anaphylaxis, 06/06/18) PENICILLINS (Unverified Allergy, Unknown, 10/05/17) Subjective In bed and showing no signs of pain or distress. Doing well and pain has been tolerated on the Dilaudid. No new complaints at this time. Objective Last 24 Hour Vital Signs Date Time Temp Pulse Resp B/P (MAP) Pulse Ox O2 Delivery O2 Flow Rate FiO2 06/08/18 08:00 97.3 20 154/86 (108) 94 06/08/18 04:00 98.6 66 18 159/82 (107) 96 06/08/18 04:00 70 06/08/18 00:00 76 06/08/18 00:00 98.3 82 18 149/87 (107) 96 06/07/18 21:00 Room Air 06/07/18 20:00 83 06/07/18 20:00 98.8 81 18 148/92 (110) 95 06/07/18 17:08 98.8 06/07/18 17:08 98.8 06/07/18 16:00 101.1 92 18 156/91 (112) 95 06/07/18 15:44 98 06/07/18 14:25 100.0 06/07/18 11:46 88 06/07/18 11:46 100.0 84 18 141/77 (98) 95 Intake and Output 06/07/18 06/08/18 18:59 06:59 Intake Total 340 ml 240 ml Balance 340 ml 240 ml Intake Oral 240 ml IV Total 100 ml Other 240 ml # Voids 3 1 Laboratory Tests 06/08/18 08:05: White Blood Count 4.2L, Red Blood Count 5.12, Hemoglobin 11.5L, Hematocrit 37.0 , Mean Corpuscular Volume 72L, Mean Corpuscular Hemoglobin 22.6L, Mean Corpuscular Hemoglobin Concent 31.2L, Red Cell Distribution Width 16.7H, Platelet Count 113L, Mean Platelet Volume 6.9, Neutrophils (%) (Auto) , Lymphocytes (%) (Auto) , Monocytes (%) (Auto) , Eosinophils (%) (Auto) , Basophils (%) (Auto) , Neutrophils % (Manual) [Pending], Lymphocytes % (Manual) [Pending], Platelet Estimate [Pending], Platelet Morphology [Pending], Reticulocyte Count [Pending], Sodium Level [Pending], Potassium Level [Pending] , Chloride Level [Pending], Carbon Dioxide Level [Pending], Blood Urea Nitrogen [Pending], Creatinine [Pending], Estimat Glomerular Filtration Rate [Pending], Glucose Level [Pending], Calcium Level [Pending], Iron Level 36L, Total Iron Binding Capacity 275, Percent Iron Saturation 13L, Unsaturated Iron Binding 239 , Ferritin [Pending], Carcinoembryonic Antigen [Pending], Vitamin B12 Level [ Pending], Folate [Pending] Height (Feet): 5 Height (Inches): 4.00 Weight (Pounds): 184 General Appearance: no apparent distress, alert EENT: PERRL/EOMI Neck: non-tender, supple Cardiovascular: normal rate, regular rhythm Respiratory/Chest: lungs clear, normal breath sounds Abdomen: non tender, soft Extremities: normal range of motion, non-tender Edema: trace edema Neurologic: alert, oriented x 3 Skin: warm/dry Ludwig Silver Jun 08, 2018 09:01
[2018-06-08 09:04] LABS: ANION GAP 9 mmol/L (5-15); BLOOD UREA NITROGEN 9 mg/dL (7-18); CALCIUM 8.8 MG/DL (8.5-10.1); CARBON DIOXIDE 23 MMOL/L (21-32); CHLORIDE 106 MMOL/L (98-107); CREATININE 0.7 MG/DL (0.55-1.30); FERRITIN 197 NG/ML (8-388); POTASSIUM 3.8 MMOL/L (3.5-5.1); SODIUM 138 MMOL/L (136-145)
--- NOTE | 2018-06-08 09:18 | NUR ---
CASE MANAGEMENT:REVIEW 06/08/18 SI: ACS. COPD 97.3 66 18 159/82 94% ON RA WBC-4.1 PLT-113 IS: IV SOLUMEDROL Q8HR IV LEVAQUIN Q24 CYMBALTA PO QD PROTONIX PO QD JANAE-DUR PO Q12 ASA PO QD HEPARIN SQ Q12 : TELEMETRY STATUS DCP: FROM HOME PLAN: STRESS TEST SCHEDULED FOR TODAY
--- NOTE | 2018-06-08 10:09 | NUR ---
INSURANCE CLINICALS AND REVIEWS FAXED TO: IPA: ANN CABELLOM: HARDEEP T#: [phone] F#:[phone]
--- NOTE | 2018-06-08 10:49 | GI Progress Note ---
Assessment/Plan Problems: (1) GERD (gastroesophageal reflux disease) ICD Codes: K21.9 - Gastro-esophageal reflux disease without esophagitis SNOMED: 434611052 (2) Anemia ICD Codes: D64.9 - Anemia, unspecified SNOMED: 144761092 (3) Diarrhea ICD Codes: R19.7 - Diarrhea, unspecified SNOMED: 05372894 (4) Diabetes ICD Codes: E11.9 - Type 2 diabetes mellitus without complications SNOMED: 55566642 (5) Chest pain ICD Codes: R07.9 - Chest pain SNOMED: 70806242 Status: unchanged Status Narrative Discussed with Dr. Hurst. Assessment/Plan At this time the patient is on a regular diet, currently denying any nausea or vomiting. Follow-up cardiac recommendations, stress test today possible endosccopy tomorrow if cleared by cardiology anemia work up OB stool r/o GI bleed monitor H&H, prn transfusions bowel regime ppi fu labs Patient could benefit from a colonoscopy, can be done as outpatient. The patient was seen and examined at bedside and all new and available data was reviewed in the patients chart. I agree with the above findings, impression and plan. (Patient seen earlier today. Signature stamp does not reflect patient encounter time.). - Yunior Hurst MD Subjective Subjective Complaints of abdominal pain Objective Last 24 Hour Vital Signs Date Time Temp Pulse Resp B/P (MAP) Pulse Ox O2 Delivery O2 Flow Rate FiO2 06/08/18 08:32 98.6 06/08/18 08:00 97.3 20 154/86 (108) 94 06/08/18 07:34 54 06/08/18 04:00 98.6 66 18 159/82 (107) 96 06/08/18 04:00 70 06/08/18 00:00 76 06/08/18 00:00 98.3 82 18 149/87 (107) 96 06/07/18 21:00 Room Air 06/07/18 20:00 83 06/07/18 20:00 98.8 81 18 148/92 (110) 95 06/07/18 17:08 98.8 06/07/18 17:08 98.8 06/07/18 16:00 101.1 92 18 156/91 (112) 95 06/07/18 15:44 98 06/07/18 11:46 88 1/8/19 11:46 100.0 84 18 141/77 (98) 95 Intake and Output 06/07/18 06/08/18 18:59 06:59 Intake Total 340 ml 240 ml Balance 340 ml 240 ml Intake Oral 240 ml IV Total 100 ml Other 240 ml # Voids 3 1 Laboratory Tests Test 06/08/18 08:05 White Blood Count 4.2 K/UL (4.8-10.8) L Red Blood Count 5.12 M/UL (4.20-5.40) Hemoglobin 11.5 G/DL (12.0-16.0) L Hematocrit 37.0 % (37.0-47.0) Mean Corpuscular Volume 72 FL (80-99) L Mean Corpuscular Hemoglobin 22.6 PG (27.0-31.0) L Mean Corpuscular Hemoglobin Concent 31.2 G/DL (32.0-36.0) L Red Cell Distribution Width 16.7 % (11.6-14.8) H Platelet Count 113 K/UL (150-450) L Mean Platelet Volume 6.9 FL (6.5-10.1) Neutrophils (%) (Auto) % (45.0-75.0) Lymphocytes (%) (Auto) % (20.0-45.0) Monocytes (%) (Auto) % (1.0-10.0) Eosinophils (%) (Auto) % (0.0-3.0) Basophils (%) (Auto) % (0.0-2.0) Neutrophils % (Manual) Pending Lymphocytes % (Manual) Pending Platelet Estimate Pending Platelet Morphology Pending Reticulocyte Count 1.5 % (0.0-2.0) Sodium Level 138 MMOL/L (136-145) Potassium Level 3.8 MMOL/L (3.5-5.1) Chloride Level 106 MMOL/L (98-107) Carbon Dioxide Level 23 MMOL/L (21-32) Anion Gap 9 mmol/L (5-15) Blood Urea Nitrogen 9 mg/dL (7-18) Creatinine 0.7 MG/DL (0.55-1.30) Estimat Glomerular Filtration Rate > 60 mL/min (>60) Glucose Level 197 MG/DL (74-106) H Calcium Level 8.8 MG/DL (8.5-10.1) Iron Level 36 ug/dL (50-175) L Total Iron Binding Capacity 275 ug/dL (250-450) Percent Iron Saturation 13 % (15-50) L Unsaturated Iron Binding 239 ug/dL (112-346) Ferritin 197 NG/ML (8-388) Carcinoembryonic Antigen Pending Vitamin B12 Level 304 PG/ML (193-986) Folate 19.7 NG/ML (8.6-58.9) Height (Feet): 5 Height (Inches): 4.00 Weight (Pounds): 184 General Appearance: WD/WN, no apparent distress, alert Cardiovascular: normal rate Respiratory/Chest: normal breath sounds, no respiratory distress Abdominal Exam: normal bowel sounds, non tender, soft Extremities: normal range of motion, non-tender, other - Left-sided weakness status post CVA Karla Rose NP Jun 08, 2018 10:49
[2018-06-08] MEDS: DULoxetine 30mg cap ORAL SCH (10:55)
--- NOTE | 2018-06-08 11:28 | NUR ---
RD ASSESSMENT & RECOMMENDATIONS SEE CARE ACTIVITY FOR COMPLETE ASSESSMENT DAILY ESTIMATED NEEDS: Needs based on Cardiac, DM, 61.7kg adj 25-30 kcals/kg 3843-9290 total kcals 1-1.5 g protein/kg 62-93 g total protein 25-30 mL/kg 7428-2767 total fluid mLs NUTRITION DIAGNOSIS: 1) Decreased sodium needs r/t cardiac history as evidenced by pt w/ HTN (BP 154/86), h/o CVA, h/o [place]. 2) Altered nutrition related lab values r/t diabetes as evidenced by A1C 8.1, elev BG (118-197) CURRENT DIET: Regular-> now NPO for stress test today PO DIET RECOMMENDATIONS: CCHO LOW / LOW NA ADDITIONAL RECOMMENDATIONS: 1) Obtain a calibrated bed scale wt for accurate CBW 2) ISS coverage; elev A1C + solumedrol meds 3) Add snacks bid w/ variable po intake
[2018-06-08 12:00] VITALS: BP 149/90
--- NOTE | 2018-06-08 12:43 | Pulmonology Progress Note ---
Assessment/Plan Problems: (1) Acute bronchitis (2) COPD (chronic obstructive pulmonary disease) (3) ACS (acute coronary syndrome) (4) Costochondritis (5) History of OR (myocardial infarction) (6) CAD (coronary artery disease) (7) Previous back surgery (8) Left-sided weakness Assessment/Plan stress test pending check sputum add antibiotics antitussives respiratory treatment check electrolytes short course of steroids, taper to qd Subjective ROS Limited/Unobtainable: No Constitutional: Reports: no symptoms HEENT: Repors: no symptoms Respiratory: Reports: no symptoms Allergies: Coded Allergies: ORANGE (Verified Allergy, Severe, Anaphylaxis, 06/06/18) PENICILLINS (Unverified Allergy, Unknown, 10/05/17) Objective Last 24 Hour Vital Signs Date Time Temp Pulse Resp B/P (MAP) Pulse Ox O2 Delivery O2 Flow Rate FiO2 06/08/18 09:00 Room Air 06/08/18 08:32 98.6 06/08/18 08:00 97.3 20 154/86 (108) 94 06/08/18 07:34 54 06/08/18 04:00 98.6 66 18 159/82 (107) 96 06/08/18 04:00 70 06/08/18 00:00 76 06/08/18 00:00 98.3 82 18 149/87 (107) 96 06/07/18 21:00 Room Air 06/07/18 20:00 83 06/07/18 20:00 98.8 81 18 148/92 (110) 95 06/07/18 17:08 98.8 06/07/18 17:08 98.8 06/07/18 16:00 101.1 92 18 156/91 (112) 95 06/07/18 15:44 98 Intake and Output 06/07/18 06/08/18 18:59 06:59 Intake Total 340 ml 240 ml Balance 340 ml 240 ml Intake Oral 240 ml IV Total 100 ml Other 240 ml # Voids 3 1 General Appearance: WD/WN HEENT: normocephalic, anicteric Respiratory/Chest: chest wall non-tender, lungs clear Breasts: no masses Cardiovascular: normal rate Abdomen: normal bowel sounds, no organomegaly Extremities: no clubbing Neurologic/Psychiatric: trestle mechanic II-XII grossly normal Microbiology Date/Time Source Procedure Growth Status 06/05/18 15:23 Nasal Nares Influenza Types A,B Antigen ([facility]) - Final Complete Laboratory Tests 06/08/18 08:05: White Blood Count 4.2L, Red Blood Count 5.12, Hemoglobin 11.5L, Hematocrit 37.0 , Mean Corpuscular Volume 72L, Mean Corpuscular Hemoglobin 22.6L, Mean Corpuscular Hemoglobin Concent 31.2L, Red Cell Distribution Width 16.7H, Platelet Count 113L, Mean Platelet Volume 6.9, Neutrophils (%) (Auto) , Lymphocytes (%) (Auto) , Monocytes (%) (Auto) , Eosinophils (%) (Auto) , Basophils (%) (Auto) , Differential Total Cells Counted 100, Neutrophils % ( Manual) 89H, Lymphocytes % (Manual) 11L, Monocytes % (Manual) 0L, Eosinophils % (Manual) 0, Basophils % (Manual) 0, Band Neutrophils 0, Platelet Estimate DecreasedL, Platelet Morphology Normal, Hypochromasia 1+, Anisocytosis 1+, Microcytosis 1+, Reticulocyte Count 1.5, Sodium Level 138, Potassium Level 3.8, Chloride Level 106, Carbon Dioxide Level 23, Anion Gap 9, Blood Urea Nitrogen 9 , Creatinine 0.7, Estimat Glomerular Filtration Rate > 60, Glucose Level 197H, Calcium Level 8.8, Iron Level 36L, Total Iron Binding Capacity 275, Percent Iron Saturation 13L, Unsaturated Iron Binding 239, Ferritin 197, Carcinoembryonic Antigen [Pending], Vitamin B12 Level 304, Folate 19.7 Current Medications Medications (Trade) Dose Ordered Sig/Jael Route PRN Reason Start Time Stop Time Status Last Admin Dose Admin Acetaminophen (Tylenol) 650 mg Q4H PRN ORAL FEVER 06/05/18 19:30 07/05/18 19:29 06/07/18 16:38 Albuterol/ Ipratropium (Albuterol/ Ipratropium) 3 ml Q4H PRN HHN Shortness of Breath 06/05/18 19:30 06/10/18 19:29 Aspirin (ASA) 162 mg DAILY ORAL 06/06/18 09:00 07/06/18 08:59 06/08/18 08:02 Diltiazem HCl (Cardizem) 10 mg Q1H PRN IV heart rate more than 120, 06/05/18 19:30 07/05/18 19:29 Diphenhydramine HCl (Benadryl) 25 mg Q6H PRN IVP Itching 06/06/18 12:45 07/06/18 12:44 06/08/18 10:59 Duloxetine HCl (Cymbalta) 30 mg DAILY ORAL 06/08/18 09:00 07/08/18 08:59 06/08/18 10:55 Enalaprilat (Vasotec) 2.5 mg Q6H PRN IV sbp more than 160 06/05/18 19:30 07/05/18 19:29 Heparin Sodium (Porcine) (Heparin 5000 units/ml) 5,000 units EVERY 12 HOURS SUBQ 06/05/18 21:00 07/05/18 20:59 06/06/18 20:35 Hydromorphone HCl (Dilaudid) 0.5 mg Q3H PRN IVP For Pain 06/05/18 22:30 06/12/18 22:29 06/08/18 10:59 Iron Sucrose 100 mg/Sodium Chloride 60 ml @ 240 mls/hr ONCE IV 06/08/18 21:00 06/08/18 22:00 Levofloxacin 100 ml @ 100 mls/hr Q24H IVPB 06/07/18 14:00 06/14/18 13:59 06/07/18 14:11 Methylprednisolone Sodium Succinate (Solu-MEDROL) 40 mg EVERY 8 HOURS IVP 06/07/18 14:00 07/07/18 13:59 06/08/18 05:48 Nitroglycerin (Ntg) 0.4 mg Q5M PRN SL Prn Chest Pain 06/05/18 19:30 07/05/18 19:29 Ondansetron HCl (Zofran) 4 mg Q6H PRN IVP Nausea & Vomiting 06/05/18 19:30 07/05/18 19:29 Pantoprazole (Protonix) 40 mg DAILY ORAL 06/08/18 09:00 07/08/18 08:59 06/08/18 10:55 Polyethylene Glycol (Miralax) 17 gm DAILYPRN PRN ORAL Constipation 06/05/18 19:30 07/05/18 19:29 Promethazine HCl/ Codeine (Phenergan with Codeine) 5 ml Q4H PRN ORAL For Cough 06/07/18 11:15 07/07/18 11:14 06/07/18 22:07 Regadenoson (Lexiscan) 0.4 mg ONCE PRN IV CARDIOLOGY 06/07/18 11:00 06/09/18 10:59 Temazepam (Restoril) 15 mg HSPRN PRN ORAL Insomnia 06/05/18 19:30 06/12/18 19:29 06/05/18 22:57 Theophylline (Андрей-Dur) 100 mg EVERY 12 HOURS ORAL 06/07/18 21:00 07/07/18 20:59 06/07/18 21:53 Leo Mendoza MD Jun 08, 2018 12:43
--- NOTE | 2018-06-08 14:44 | General Progress Note ---
Assessment/Plan Problem List: (1) HTN (hypertension) ICD Codes: I10 - Essential (primary) hypertension SNOMED: 58329306 (2) Diabetes ICD Codes: E11.9 - Type 2 diabetes mellitus without complications SNOMED: 52851159 (3) Diarrhea ICD Codes: R19.7 - Diarrhea, unspecified SNOMED: 90765093 (4) Chest pain ICD Codes: R07.9 - Chest pain, unspecified SNOMED: 80020471 Qualifiers: Qualified Codes: R07.9 - Chest pain, unspecified (5) Chronic pain ICD Codes: G89.29 - Other chronic pain SNOMED: 01903382 (6) COPD (chronic obstructive pulmonary disease) ICD Codes: J44.9 - Chronic obstructive pulmonary disease, unspecified SNOMED: 69902507 (7) ACS (acute coronary syndrome) ICD Codes: I24.9 - Acute ischemic heart disease, unspecified SNOMED: 836601956 Status: stable, progressing Assessment/Plan pt diet cardio f/u cbc dc w hh if clear Subjective Constitutional: Reports: weakness Allergies: Coded Allergies: ORANGE (Verified Allergy, Severe, Anaphylaxis, 06/06/18) PENICILLINS (Unverified Allergy, Unknown, 10/05/17) All Systems: reviewed and negative except above Subjective sl cp Objective Last 24 Hour Vital Signs Date Time Temp Pulse Resp B/P (MAP) Pulse Ox O2 Delivery O2 Flow Rate FiO2 06/08/18 12:00 97.0 68 21 149/90 (109) 99 06/08/18 11:37 70 06/08/18 11:29 98.6 06/08/18 09:00 Room Air 06/08/18 08:00 97.3 20 154/86 (108) 94 06/08/18 07:34 54 06/08/18 04:00 98.6 66 18 159/82 (107) 96 06/08/18 04:00 70 06/08/18 00:00 76 06/08/18 00:00 98.3 82 18 149/87 (107) 96 06/07/18 21:00 Room Air 06/07/18 20:00 83 06/07/18 20:00 98.8 81 18 148/92 (110) 95 06/07/18 17:08 98.8 06/07/18 17:08 98.8 06/07/18 16:00 101.1 92 18 156/91 (112) 95 06/07/18 15:44 98 Intake and Output 06/07/18 06/08/18 18:59 06:59 Intake Total 340 ml 240 ml Balance 340 ml 240 ml Intake Oral 240 ml IV Total 100 ml Other 240 ml # Voids 3 1 Laboratory Tests 06/08/18 08:05: White Blood Count 4.2L, Red Blood Count 5.12, Hemoglobin 11.5L, Hematocrit 37.0 , Mean Corpuscular Volume 72L, Mean Corpuscular Hemoglobin 22.6L, Mean Corpuscular Hemoglobin Concent 31.2L, Red Cell Distribution Width 16.7H, Platelet Count 113L, Mean Platelet Volume 6.9, Neutrophils (%) (Auto) , Lymphocytes (%) (Auto) , Monocytes (%) (Auto) , Eosinophils (%) (Auto) , Basophils (%) (Auto) , Differential Total Cells Counted 100, Neutrophils % ( Manual) 89H, Lymphocytes % (Manual) 11L, Monocytes % (Manual) 0L, Eosinophils % (Manual) 0, Basophils % (Manual) 0, Band Neutrophils 0, Platelet Estimate DecreasedL, Platelet Morphology Normal, Hypochromasia 1+, Anisocytosis 1+, Microcytosis 1+, Reticulocyte Count 1.5, Sodium Level 138, Potassium Level 3.8, Chloride Level 106, Carbon Dioxide Level 23, Anion Gap 9, Blood Urea Nitrogen 9 , Creatinine 0.7, Estimat Glomerular Filtration Rate > 60, Glucose Level 197H, Calcium Level 8.8, Iron Level 36L, Total Iron Binding Capacity 275, Percent Iron Saturation 13L, Unsaturated Iron Binding 239, Ferritin 197, Carcinoembryonic Antigen [Pending], Vitamin B12 Level 304, Folate 19.7 Height (Feet): 5 Height (Inches): 4.00 Weight (Pounds): 184 General Appearance: alert EENT: normal ENT inspection Neck: normal alignment Cardiovascular: normal peripheral pulses, normal rate, regular rhythm Respiratory/Chest: chest wall non-tender, lungs clear, normal breath sounds Abdomen: normal bowel sounds, non tender, soft Extremities: normal inspection Edema: no edema noted Arm (L), no edema noted Arm (R), no edema noted Leg (L), no edema noted Leg (R), no edema noted Pedal (L), no edema noted Pedal (R), no edema noted Generalized Neurologic: responsive, motor weakness Skin: normal pigmentation, warm/dry Reymundo Graves DO Jun 08, 2018 14:44
[2018-06-08] MEDS: Promethazine/Codeine 5ml UD ORAL PRN ×2 (14:57→22:40)
--- NOTE | 2018-06-08 15:34 | NUR ---
DISCHARGE PLANNING PATIENT HAS BEEN REFERRED TO: [facility] P: [phone] F: [phone]
[2018-06-08 16:00] VITALS: BP 152/83
--- NOTE | 2018-06-08 16:24 | Cardiac Electrophysiology PN ---
Assessment/Plan Assessment/Plan 1. Atypical chest pain. Ruled out for myocardial infarction. Had nuclear stress test that result spending. Echocardiogram EF 55% 2. Hypertension. Blood pressure is currently stable. 3. SOB. Questionable congestive heart failure as BNP is within normal range likely due to the patient's underlying COPD. 4. Status post spine surgery and back pain. 5. Morbid obesity. 6. Hyperlipidemia, on Lipitor. ROMAN RN Subjective Subjective Had stress test today. Results pending Objective Last 24 Hour Vital Signs Date Time Temp Pulse Resp B/P (MAP) Pulse Ox O2 Delivery O2 Flow Rate FiO2 06/08/18 15:27 97.0 06/08/18 12:00 97.0 68 21 149/90 (109) 99 06/08/18 11:37 70 06/08/18 09:00 Room Air 06/08/18 08:00 97.3 20 154/86 (108) 94 06/08/18 07:34 54 06/08/18 04:00 98.6 66 18 159/82 (107) 96 06/08/18 04:00 70 06/08/18 00:00 76 06/08/18 00:00 98.3 82 18 149/87 (107) 96 06/07/18 21:00 Room Air 06/07/18 20:00 83 06/07/18 20:00 98.8 81 18 148/92 (110) 95 06/07/18 17:08 98.8 06/07/18 17:08 98.8 Intake and Output 06/07/18 06/08/18 19:00 07:00 Intake Total 340 ml 240 ml Balance 340 ml 240 ml Intake Oral 240 ml IV Total 100 ml Other 240 ml # Voids 3 1 Laboratory Tests Test 06/08/18 08:05 White Blood Count 4.2 K/UL (4.8-10.8) L Red Blood Count 5.12 M/UL (4.20-5.40) Hemoglobin 11.5 G/DL (12.0-16.0) L Hematocrit 37.0 % (37.0-47.0) Mean Corpuscular Volume 72 FL (80-99) L Mean Corpuscular Hemoglobin 22.6 PG (27.0-31.0) L Mean Corpuscular Hemoglobin Concent 31.2 G/DL (32.0-36.0) L Red Cell Distribution Width 16.7 % (11.6-14.8) H Platelet Count 113 K/UL (150-450) L Mean Platelet Volume 6.9 FL (6.5-10.1) Neutrophils (%) (Auto) % (45.0-75.0) Lymphocytes (%) (Auto) % (20.0-45.0) Monocytes (%) (Auto) % (1.0-10.0) Eosinophils (%) (Auto) % (0.0-3.0) Basophils (%) (Auto) % (0.0-2.0) Differential Total Cells Counted 100 Neutrophils % (Manual) 89 % (45-75) H Lymphocytes % (Manual) 11 % (20-45) L Monocytes % (Manual) 0 % (1-10) L Eosinophils % (Manual) 0 % (0-3) Basophils % (Manual) 0 % (0-2) Band Neutrophils 0 % (0-8) Platelet Estimate Decreased L Platelet Morphology Normal Hypochromasia 1+ Anisocytosis 1+ Microcytosis 1+ Reticulocyte Count 1.5 % (0.0-2.0) Sodium Level 138 MMOL/L (136-145) Potassium Level 3.8 MMOL/L (3.5-5.1) Chloride Level 106 MMOL/L (98-107) Carbon Dioxide Level 23 MMOL/L (21-32) Anion Gap 9 mmol/L (5-15) Blood Urea Nitrogen 9 mg/dL (7-18) Creatinine 0.7 MG/DL (0.55-1.30) Estimat Glomerular Filtration Rate > 60 mL/min (>60) Glucose Level 197 MG/DL (74-106) H Calcium Level 8.8 MG/DL (8.5-10.1) Iron Level 36 ug/dL (50-175) L Total Iron Binding Capacity 275 ug/dL (250-450) Percent Iron Saturation 13 % (15-50) L Unsaturated Iron Binding 239 ug/dL (112-346) Ferritin 197 NG/ML (8-388) Carcinoembryonic Antigen Pending Vitamin B12 Level 304 PG/ML (193-986) Folate 19.7 NG/ML (8.6-58.9) Objective HEAD AND NECK: No JVD. LUNGS: Decreased wheezes bilaterally. CARDIOVASCULAR: Regular S1 and S2 with no gallop. ABDOMEN: Soft. EXTREMITIES: No pitting edema. Ras Trivedi MD Jun 08, 2018 16:24
--- NOTE | 2018-06-08 16:38 | Diagnostic Imaging Report ---
Indications: Chest pain Technique: Single day single isotope protocol utilized. Initially, resting images obtained using IV administration 10.2 millicuries 99M technetium Myoview. Subsequently, patient underwent lexiscan stress testing. See cardiology report for details. During Lexiscan infusion, IV administration 31.2 mCi 99 M technetium Myoview. SPECT and planar images obtained. SPECT images gated to 8 phases of the cardiac cycle were also obtained, and reformatted into cine images for evaluation of ejection fraction. Comparison: none Findings: Presence or absence of symptoms is not described on the cardiology report.. Per cardiology report, resting EKG demonstrates normal sinus rhythm with premature atrial contractions. Imaging demonstrates no fixed nor reversible post stress perfusion defects.. Calculated post stress ejection fraction 71%. No focal wall motion abnormality Impression: Nonischemic clinical response to pharmacologic stress, per cardiology report Nonischemic electrocardiographic response to pharmacologic stress, per cardiology report No imaging findings to suggest ischemia, at level of stress achieved. Calculated post stress ejection fraction 71%
--- NOTE | 2018-06-08 19:59 | NUR ---
HAND-OFF: Report given to VIKI Melgar.
[2018-06-08 21:00] VITALS: BP 150/81
[2018-06-08] MEDS ORDERED: Iron Sucrose 100 MG in NS 55 ML IV SCH (21:00)
[2018-06-09] VITALS: BP 154/95
[2018-06-09 04:00] VITALS: BP 123/77
--- NOTE | 2018-06-09 05:44 | NUR ---
Report received from Elma Lucero pt is alert and oriented x4 pt has a MIDLINE LT UPPER ARM PT pT pT IS S/P BACK SURGERY IN 2018 pT HAS HX OF CVA,HTN,pT IS NSR ON THE MONITOR PT REQUEST PAIN MEDICATION EVERY 3 HOUR FOR PAIN pT IS SCHEDULED ENDOSCOPY IF CLEARED BY CARDIOLOGY WILL CONTINUE TO MONITOR FOR SAFETY PT SKIN IS INTACT WILL CALL IF NEEDS HELP TO BATHROOM mEDICATION FOR PAIN IS DILAUDID 3MG EVERY 3H PT HAS ALSO PT ORDERED. wILL CONTINUE TO MONITOR.
--- NOTE | 2018-06-09 07:55 | NUR ---
NURSE NOTES: Report received from VIKI Melgar. Pt is resting in bed, sleeping. No signs and symptoms of acute distress noted at this time. Respirations are even and unlabored on room air. Bed is at lowest position, brakes engaged, side rails x2, bed alarm on. Bed side table and call light within reach. Will continue to monitor patient and follow plan of care
[2018-06-09 08:00] VITALS: BP 136/80
--- NOTE | 2018-06-09 08:58 | General Progress Note ---
Assessment/Plan Assessment/Plan (1) Cervical and Lumbar DDD (2) Cervical and Lumbar Spondylosis (3) Cervical and Lumbar Herniated disc (4) Cervical and Lumbar Radiculopathy (5) H/o Cervical and Lumbar fusion (6) Right hip pain and OA Patient will be continued on Dilaudid. D/w Dr. Rodríguez and he concurred. Subjective Date patient seen: Jun 09, 2018 Time patient seen: 08:00 - am Constitutional: Reports: weakness HEENT: Reports: no symptoms Cardiovascular: Reports: no symptoms Respiratory: Reports: no symptoms Gastrointestinal/Abdominal: Reports: no symptoms Genitourinary: Reports: no symptoms Neurologic/Psychiatric: Reports: weakness Endocrine: Reports: no symptoms Hematologic/Lymphatic: Reports: no symptoms Allergies: Coded Allergies: ORANGE (Verified Allergy, Severe, Anaphylaxis, 06/06/18) PENICILLINS (Unverified Allergy, Unknown, 10/05/17) Subjective In bed and showing no signs of pain or distress. Pain is continuous and tolerated on the Dilaudid. Objective Last 24 Hour Vital Signs Date Time Temp Pulse Resp B/P (MAP) Pulse Ox O2 Delivery O2 Flow Rate FiO2 06/09/18 04:00 97.8 74 18 123/77 (92) 97 06/09/18 04:00 77 06/09/18 00:00 98.1 77 18 154/95 (114) 98 06/08/18 21:00 Room Air 06/08/18 21:00 98.2 77 18 150/81 (104) 96 06/08/18 20:00 78 06/08/18 18:30 98.5 06/08/18 16:00 98.5 93 20 152/83 (106) 98 06/08/18 15:58 77 06/08/18 12:00 97.0 68 21 149/90 (109) 99 06/08/18 11:37 70 06/08/18 09:00 Room Air Intake and Output 06/08/18 06/09/18 19:00 07:00 Intake Total 260 ml Balance 260 ml Intake Oral 260 ml # Voids 3 Height (Feet): 5 Height (Inches): 4.00 Weight (Pounds): 184 General Appearance: no apparent distress, alert EENT: PERRL/EOMI Neck: non-tender, normal alignment Cardiovascular: normal rate, regular rhythm Respiratory/Chest: lungs clear, normal breath sounds Abdomen: non tender, soft Extremities: non-tender Edema: trace edema Neurologic: alert, oriented x 3 Skin: warm/dry Ludwig Silver Jun 09, 2018 08:58
[2018-06-09] MEDS ORDERED: Solu-MEDROL 40mg Inj IVP SCH (09:00)
[2018-06-09] MEDS: Hydromorphone 0.5mg/0.5ml inj IVP PRN ×2 (09:09→12:15)
[2018-06-09] MEDS: DULoxetine 30mg cap ORAL SCH (09:16)
[2018-06-09] MEDS: Aspirin Baby 81mg ORAL SCH (09:17)
[2018-06-09] MEDS: Theophylline ER 100mg ORAL SCH (09:17)
[2018-06-09] MEDS: Heparin 5000 units/ml inj SUBQ SCH (09:20)
--- NOTE | 2018-06-09 10:30 | NUR ---
CASE MANAGEMENT:REVIEW 06/09/18 SI: ACS. COPD 97.9 73 22 136/80 94% ON RA IS: IV SOLUMEDROL QD IV LEVAQUIN Q24 CYMBALTA PO QD PROTONIX PO QD JANAE-DUR PO Q12 ASA PO QD HEPARIN SQ Q12 : TELEMETRY STATUS DCP: FROM HOME PLAN: STRESS TEST WAS COMPLETED ~ AWAIT CARDIAC CLEARANCE FOR DISCHARGE
--- NOTE | 2018-06-09 10:36 | GI Progress Note ---
Assessment/Plan Problems: (1) GERD (gastroesophageal reflux disease) ICD Codes: K21.9 - Gastro-esophageal reflux disease without esophagitis SNOMED: 079337314 (2) Anemia ICD Codes: D64.9 - Anemia, unspecified SNOMED: 559385890 (3) Diarrhea ICD Codes: R19.7 - Diarrhea, unspecified SNOMED: 57946303 (4) Diabetes ICD Codes: E11.9 - Type 2 diabetes mellitus without complications SNOMED: 96961589 (5) Chest pain ICD Codes: R07.9 - Chest pain SNOMED: 19294452 Status: unchanged Status Narrative Discussed with Dr. Hurst. Assessment/Plan EGD to be done as outpatient. monitor H&H, prn transfusions. bowel regime. ppi fu labs will follow with additional recs post procedure outpatient colonoscopy The patient was seen and examined at bedside and all new and available data was reviewed in the patients chart. I agree with the above findings, impression and plan. (Patient seen earlier today. Signature stamp does not reflect patient encounter time.). - Yunior Hurst MD Subjective Subjective still has complaints of abdominal pain Objective Last 24 Hour Vital Signs Date Time Temp Pulse Resp B/P (MAP) Pulse Ox O2 Delivery O2 Flow Rate FiO2 06/09/18 08:00 97.9 73 22 136/80 (98) 94 06/09/18 04:00 97.8 74 18 123/77 (92) 97 06/09/18 04:00 77 06/09/18 00:00 98.1 77 18 154/95 (114) 98 06/08/18 21:00 Room Air 06/08/18 21:00 98.2 77 18 150/81 (104) 96 06/08/18 20:00 78 06/08/18 18:30 98.5 06/08/18 16:00 98.5 93 20 152/83 (106) 98 06/08/18 15:58 77 06/08/18 12:00 97.0 68 21 149/90 (109) 99 06/08/18 11:37 70 Intake and Output 06/08/18 06/09/18 19:00 07:00 Intake Total 260 ml Balance 260 ml Intake Oral 260 ml # Voids 3 Height (Feet): 5 Height (Inches): 4.00 Weight (Pounds): 184 General Appearance: WD/WN, no apparent distress, alert Cardiovascular: normal rate Respiratory/Chest: normal breath sounds, no respiratory distress Abdominal Exam: normal bowel sounds, non tender, soft Extremities: non-tender Karla Rose NP Jun 09, 2018 10:36
--- NOTE | 2018-06-09 10:57 | Cardiac Electrophysiology PN ---
Assessment/Plan Assessment/Plan 1. Atypical chest pain. Ruled out for myocardial infarction. Nuclear stress test nonischemic. Echocardiogram EF 55% 2. Hypertension. Blood pressure is currently stable. 3. SOB. Questionable congestive heart failure as BNP is within normal range likely due to the patient's underlying COPD. 4. Status post spine surgery and back pain. 5. Morbid obesity. 6. Hyperlipidemia, on Lipitor. DW RN Subjective Subjective Stress test nonischemic Objective Last 24 Hour Vital Signs Date Time Temp Pulse Resp B/P (MAP) Pulse Ox O2 Delivery O2 Flow Rate FiO2 06/09/18 08:00 97.9 73 22 136/80 (98) 94 06/09/18 04:00 97.8 74 18 123/77 (92) 97 06/09/18 04:00 77 06/09/18 00:00 98.1 77 18 154/95 (114) 98 06/08/18 21:00 Room Air 06/08/18 21:00 98.2 77 18 150/81 (104) 96 06/08/18 20:00 78 06/08/18 18:30 98.5 06/08/18 16:00 98.5 93 20 152/83 (106) 98 06/08/18 15:58 77 06/08/18 12:00 97.0 68 21 149/90 (109) 99 06/08/18 11:37 70 Intake and Output 06/08/18 06/09/18 18:59 06:59 Intake Total 260 ml Balance 260 ml Intake Oral 260 ml # Voids 3 Objective HEAD AND NECK: No JVD. LUNGS: Decreased wheezes bilaterally. CARDIOVASCULAR: Regular S1 and S2 with no gallop. ABDOMEN: Soft. EXTREMITIES: No pitting edema. Ras Trivedi MD Jun 09, 2018 10:57
[2018-06-09 12:00] VITALS: BP 151/80
[2018-06-09] MEDS ORDERED: THEOPHYLLINE A100 MG ORAL (12:09)
--- NOTE | 2018-06-09 12:11 | Pulmonology Progress Note ---
Assessment/Plan Problems: (1) Acute bronchitis (2) COPD (chronic obstructive pulmonary disease) (3) ACS (acute coronary syndrome) (4) Costochondritis (5) History of NV (myocardial infarction) (6) CAD (coronary artery disease) (7) Previous back surgery (8) Left-sided weakness Assessment/Plan stress test negative improving check sputum add antibiotics antitussives respiratory treatment check electrolytes dc steroids, dc planning Subjective ROS Limited/Unobtainable: No Constitutional: Reports: no symptoms HEENT: Repors: no symptoms Respiratory: Reports: no symptoms Allergies: Coded Allergies: ORANGE (Verified Allergy, Severe, Anaphylaxis, 06/06/18) PENICILLINS (Unverified Allergy, Unknown, 10/05/17) Objective Last 24 Hour Vital Signs Date Time Temp Pulse Resp B/P (MAP) Pulse Ox O2 Delivery O2 Flow Rate FiO2 06/09/18 08:00 97.9 73 22 136/80 (98) 94 06/09/18 04:00 97.8 74 18 123/77 (92) 97 06/09/18 04:00 77 06/09/18 00:00 98.1 77 18 154/95 (114) 98 06/08/18 21:00 Room Air 06/08/18 21:00 98.2 77 18 150/81 (104) 96 06/08/18 20:00 78 06/08/18 18:30 98.5 06/08/18 16:00 98.5 93 20 152/83 (106) 98 06/08/18 15:58 77 Intake and Output 06/08/18 06/09/18 18:59 06:59 Intake Total 260 ml Balance 260 ml Intake Oral 260 ml # Voids 3 General Appearance: WD/WN HEENT: normocephalic, atraumatic Respiratory/Chest: chest wall non-tender, lungs clear Breasts: no masses Cardiovascular: normal peripheral pulses, regularly irregular Abdomen: normal bowel sounds, no organomegaly Current Medications Medications (Trade) Dose Ordered Sig/Jael Route PRN Reason Start Time Stop Time Status Last Admin Dose Admin Acetaminophen (Tylenol) 650 mg Q4H PRN ORAL FEVER 06/05/18 19:30 07/05/18 19:29 06/07/18 16:38 Albuterol/ Ipratropium (Albuterol/ Ipratropium) 3 ml Q4H PRN HHN Shortness of Breath 06/05/18 19:30 06/10/18 19:29 Aspirin (ASA) 162 mg DAILY ORAL 06/06/18 09:00 07/06/18 08:59 06/09/18 09:17 Diltiazem HCl (Cardizem) 10 mg Q1H PRN IV heart rate more than 120, 06/05/18 19:30 07/05/18 19:29 Diphenhydramine HCl (Benadryl) 25 mg Q6H PRN IVP Itching 06/06/18 12:45 07/06/18 12:44 06/09/18 00:00 Duloxetine HCl (Cymbalta) 30 mg DAILY ORAL 06/08/18 09:00 07/08/18 08:59 06/09/18 09:16 Enalaprilat (Vasotec) 2.5 mg Q6H PRN IV sbp more than 160 06/05/18 19:30 07/05/18 19:29 Heparin Sodium (Porcine) (Heparin 5000 units/ml) 5,000 units EVERY 12 HOURS SUBQ 06/05/18 21:00 07/05/18 20:59 06/09/18 09:20 Hydromorphone HCl (Dilaudid) 0.5 mg Q3H PRN IVP For Pain 06/05/18 22:30 06/12/18 22:29 06/09/18 09:09 Levofloxacin 100 ml @ 100 mls/hr Q24H IVPB 06/07/18 14:00 06/14/18 13:59 06/08/18 15:49 Methylprednisolone Sodium Succinate (Solu-MEDROL) 40 mg DAILY IVP 06/09/18 09:00 07/07/18 13:59 06/09/18 09:10 Nitroglycerin (Ntg) 0.4 mg Q5M PRN SL Prn Chest Pain 06/05/18 19:30 07/05/18 19:29 Ondansetron HCl (Zofran) 4 mg Q6H PRN IVP Nausea & Vomiting 06/05/18 19:30 07/05/18 19:29 Pantoprazole (Protonix) 40 mg DAILY ORAL 06/08/18 09:00 07/08/18 08:59 06/09/18 09:16 Polyethylene Glycol (Miralax) 17 gm DAILYPRN PRN ORAL Constipation 06/05/18 19:30 07/05/18 19:29 Promethazine HCl/ Codeine (Phenergan with Codeine) 5 ml Q4H PRN ORAL For Cough 06/07/18 11:15 07/07/18 11:14 06/08/18 22:40 Temazepam (Restoril) 15 mg HSPRN PRN ORAL Insomnia 06/05/18 19:30 06/12/18 19:29 06/05/18 22:57 Theophylline (Андрей-Dur) 100 mg EVERY 12 HOURS ORAL 06/07/18 21:00 07/07/18 20:59 06/09/18 09:17 Leo Mendoza MD Jun 09, 2018 12:11
[2018-06-09] MEDS: DiphenhydrAMINE 50mg/ml Inj IVP PRN ×2 (12:16)
--- NOTE | 2018-06-09 13:15 | General Progress Note ---
Assessment/Plan Problem List: (1) HTN (hypertension) ICD Codes: I10 - Essential (primary) hypertension SNOMED: 10139380 (2) Diabetes ICD Codes: E11.9 - Type 2 diabetes mellitus without complications SNOMED: 35496433 (3) Diarrhea ICD Codes: R19.7 - Diarrhea, unspecified SNOMED: 54561195 (4) Chest pain ICD Codes: R07.9 - Chest pain, unspecified SNOMED: 33320843 Qualifiers: Qualified Codes: R07.9 - Chest pain, unspecified (5) Chronic pain ICD Codes: G89.29 - Other chronic pain SNOMED: 17038742 (6) COPD (chronic obstructive pulmonary disease) ICD Codes: J44.9 - Chronic obstructive pulmonary disease, unspecified SNOMED: 08834101 (7) ACS (acute coronary syndrome) ICD Codes: I24.9 - Acute ischemic heart disease, unspecified SNOMED: 671536352 Status: stable, progressing Assessment/Plan pt diet cardio f/u cbc dc w hh if clear Subjective Constitutional: Reports: weakness Allergies: Coded Allergies: ORANGE (Verified Allergy, Severe, Anaphylaxis, 06/06/18) PENICILLINS (Unverified Allergy, Unknown, 10/05/17) All Systems: reviewed and negative except above Subjective sl cp Objective Last 24 Hour Vital Signs Date Time Temp Pulse Resp B/P (MAP) Pulse Ox O2 Delivery O2 Flow Rate FiO2 06/09/18 12:00 97.9 76 21 151/80 (103) 96 06/09/18 09:00 Room Air 06/09/18 08:00 75 06/09/18 08:00 97.9 73 22 136/80 (98) 94 06/09/18 04:00 97.8 74 18 123/77 (92) 97 06/09/18 04:00 77 06/09/18 00:00 98.1 77 18 154/95 (114) 98 06/08/18 21:00 Room Air 06/08/18 21:00 98.2 77 18 150/81 (104) 96 06/08/18 20:00 78 06/08/18 18:30 98.5 06/08/18 16:00 98.5 93 20 152/83 (106) 98 06/08/18 15:58 77 Intake and Output 06/08/18 06/09/18 18:59 06:59 Intake Total 260 ml Balance 260 ml Intake Oral 260 ml # Voids 3 Height (Feet): 5 Height (Inches): 4.00 Weight (Pounds): 184 General Appearance: alert EENT: normal ENT inspection Neck: normal alignment Cardiovascular: normal peripheral pulses, normal rate, regular rhythm Respiratory/Chest: chest wall non-tender, lungs clear, normal breath sounds Abdomen: normal bowel sounds, non tender, soft Extremities: normal inspection Edema: no edema noted Arm (L), no edema noted Arm (R), no edema noted Leg (L), no edema noted Leg (R), no edema noted Pedal (L), no edema noted Pedal (R), no edema noted Generalized Neurologic: responsive, motor weakness Skin: normal pigmentation, warm/dry Reymundo Graves DO Jun 09, 2018 13:15
--- NOTE | 2018-06-09 13:16 | NUR ---
SPOKE TO N[facility] THEY WILL FOLLOW PATIENT AFTER DISCHARGE.
--- NOTE | 2018-06-09 14:40 | NUR ---
NURSE NOTES: [facility] came to take patient home. Patient didn't let us to remove her picc line, she said she came with it and she will leave with that. Informed Dr. Mendoza, Per Dr. Mendoza is ok to leave with picc line.
--- NOTE | 2018-06-09 14:57 | NUR ---
NURSE NOTES: Patient discharged per doctor Star's order. All discharge instruction explained to patient, verbalized understanding. Heart monitor removed and returned to youth nutritional monitor. ID band removed and placed in shredder, all patient belonging returned to patient. Patient received her prescriptions. Patient left the hospital with [facility] in stable condition.
--- NOTE | 2018-06-10 09:52 | Discharge Summary ---
Discharge Summary Discharge Summary _ DATE OF ADMISSION: 06/05/2018 DATE OF DISCHARGE: 06/09/2018 DISCHARGED BY: Dr. Reymundo Graves CONSULTANTS: Dr. Leo Live [facility] HOSPITAL COURSE: Patient is a 63-year-old female, who lives at a boarding care facility, presented with 1 day history of substernal chest pain, described to be dull and intermittent, radiating to the left arm. There was slight shortness of breath. There was no loss of consciousness. The patient also had right hip pain. Past medical history significant for COPD, diabetes, hypertension and CHF. She had a prior back surgery. On evaluation at the ED, blood work did not show any leukocytosis. Hemoglobin hematocrit normal. Initial troponin was negative. BNP was normal. EKG showed right axis deviation with no acute changes. She had a chest x-ray done that showed increase markings bilaterally. She continued to have pain. She was given Dilaudid. She was given aspirin and Nitropaste. She refused to give urine sample. She was then admitted for evaluation of chest pain. Software Sales was consulted. She was given nebulizer treatment. She was given antitussives. She was eventually started on IV Solu-Medrol. She was started on levofloxacin. She underwent cardiac evaluation. Patient had multiple admissions to [facility] for which she had undergone stress test in the past that have been negative. She was continued on aspirin. Troponin was negative x2. She underwent Lexiscan stress test. Results were negative, there was no imaging findings to suggest ischemia ;post stress ejection fraction 71%. She was evaluated by orthopedic surgeon. Patient reported she had 2 prior MRI which showed some type of ligament tear most recent was after sustaining several falls. Patient was presumed to have degenerative labral tear. She was recommended to follow-up with back surgeon as pain patient was experiencing is partly related to lower back. She was given pain management and she was given Dilaudid IV. Complaint of abdominal pain. She complained of an episode of hematemesis of approximately 50 cc of output. GI was consulted. She was given bowel regimen and was placed on proton pump inhibitors. Anemia workup showed low serum iron levels, percent saturation 13%, ferritin level 197. She was recommended endoscopy which can be done as outpatient. She was eventually cleared for discharged home. She refused removal of PICC line. FINAL DIAGNOSES: Atypical chest pain, ruled out for myocardial infarction Costochondritis Acute bronchitis Acute COPD exacerbation Coronary artery disease Hypertension Shortness of breath, questionable CHF as BNP was within normal range, likely due to patient's underlying COPD Status post spine surgery Morbid obesity Hyperlipidemia GERD Anemia DISPOSITION: Patient was discharged home with home health. DISCHARGE MEDICATIONS: Refer to Discharge Medication List. DISCHARGE INSTRUCTIONS: Follow-up in a week. I have been assigned to dictate discharge summary on this account, and I was not involved in the patient's management. Ellie Ware NP Jun 10, 2018 09:52
== END 2018-06-09 14:58 | disposition home health service, planned readmission (86) | DRG 140 ==
LOC: EMR 15:45 → 2E 17:40 → EDBEDREQSVC 17:49 → EDBEDREQ 18:06 → OBSVTOIN 19:44 → EDBEDREQ 19:45
DX: J44.0 Chronic obstructive pulmonary disease with (acute) lower respiratory infection (principal); I11.0 Hypertensive heart disease with heart failure; E66.01 Morbid (severe) obesity due to excess calories; I50.30 Unspecified diastolic (congestive) heart failure; F33.9 Major depressive disorder, recurrent, unspecified; D64.9 Anemia, unspecified; E11.9 Type 2 diabetes mellitus without complications; M94.0 Chondrocostal junction syndrome [Tietze]; E78.5 Hyperlipidemia, unspecified; R07.89 Other chest pain; J44.1 Chronic obstructive pulmonary disease with (acute) exacerbation; J20.9 Acute bronchitis, unspecified; I25.10 Atherosclerotic heart disease of native coronary artery without angina pectoris; K21.9 Gastro-esophageal reflux disease without esophagitis; Z88.0 Allergy status to penicillin; M25.551 Pain in right hip; I25.2 Old myocardial infarction; Z98.1 Arthrodesis status; M19.90 Unspecified osteoarthritis, unspecified site; M50.10 Cervical disc disorder with radiculopathy, unspecified cervical region; M51.16 Intervertebral disc disorders with radiculopathy, lumbar region
CPT/HCPCS: 36415; 71045; 78452; 80048; 80053; 80061; 82378; 82550; 82607; 82728; 82746; 83036; 83540; 83550; 83880; 84443; 84484; 85007; 85025; 85044; 85610; 85730; 86140; 86710; 93005; 93017; 93306; 94640; 94664; 96374; 96375; 96376; 97803; 99285; J2785

== ENCOUNTER 2018-07-31 14:13 | Inpatient (IN) | payer OTHER ==
[~2018-07-31] VITALS: Ht 162.6 cm; Wt 80.5 kg
[~2018-07-31 14:13] MED LIST changes: +THEOPHYLLINE A100 MG ORAL
--- NOTE | 2018-07-31 14:29 | Emergency Room Report ---
History of Present Illness General Chief Complaint: Pain Source: Patient, EMS Present Illness HPI Patient is a 63-year-old female presented after increased right-sided hip pain. She reports having prior history of COPD. She states that she had been off of her medications for several weeks. She reports having high blood pressure as well as COPD. She reports of increased productive cough with yellow-green sputum. Patient had onset of shortness of breath approximately 3 days ago. Patient is followed by Dr. Reymundo Graves. Allergies: Coded Allergies: ORANGE (Verified Allergy, Severe, Anaphylaxis, 06/06/18) PENICILLINS (Unverified Allergy, Unknown, 10/05/17) Patient History Past Medical History: see triage record Reviewed Nursing 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: PMH: Agreed; PSxH: Agreed Nursing 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-PMH Hx Cardiac Problems: Yes Hx Hypertension: Yes Hx Pacemaker: No Hx Asthma: Yes Hx COPD: Yes Hx Cancer: No Hx Gastrointestinal Problems: No Hx Dialysis: No Hx Neurological Problems: Yes Hx Cerebrovascular Accident: Yes - 2018 Hx Seizures: No Review of Systems All Other Systems: negative except mentioned in HPI Physical Exam Vital Signs Date Time Temp Pulse Resp B/P (MAP) Pulse Ox O2 Delivery O2 Flow Rate FiO2 07/31/18 14:09 98.1 64 18 197/104 95 Room Air General Appearance: alert, obese, Chronically Ill Eyes: bilateral eye PERRL ENT: normal voice Neck: limited range of motion Respiratory: respiratory distress, wheezing Cardiovascular #1: normal peripheral pulses, regular rate, rhythm Gastrointestinal: normal inspection, non tender, soft, no mass Musculoskeletal: decreased range of motion, other - right leg shortening Neurologic: normal inspection, alert, oriented x3, responsive Medical Decision Making Diagnostic Impression: Primary Impression: COPD (chronic obstructive pulmonary disease) Additional Impressions: Chronic pain Right hip subluxation Avascular necrosis of bone of right hip ER Course Patient presented for shortness of breath. Differential included but was not limited to anemia, pneumonia, pneumothorax, myocardial infarction, pericardial effusion, congestive heart failure, acidosis. Because of complexity of patient' s case laboratory testing and imaging studies were ordered.Laboratory testing was notable for elevated BNP as well as normal white blood count. Chest x-ray 1 view read by radiology showed postsurgical changes to her cervical spine as well as vascular congestion with minimally enlarged cardiac size and a ectatic aorta. Patient was given breathing treatments as well as IV steroids. Dr. Reymundo Graves was contacted for inpatient management. Labs Test 07/31/18 14:50 07/31/18 15:55 07/31/18 16:50 Arterial Blood pH 7.410 (7.350-7.450) Arterial Blood Partial Pressure CO2 37.7 mmHg (35.0-45.0) Arterial Blood Partial Pressure O2 65.6 mmHg (75.0-100.0) Arterial Blood HCO3 23.4 mmol/L (22.0-26.0) Arterial Blood Oxygen Saturation 92.4 % (95-100) Arterial Blood Base Excess -1.0 (-2-2) Monty Test Positive White Blood Count 7.3 K/UL (4.8-10.8) Red Blood Count 5.11 M/UL (4.20-5.40) Hemoglobin 11.3 G/DL (12.0-16.0) Hematocrit 37.4 % (37.0-47.0) Mean Corpuscular Volume 73 FL (80-99) Mean Corpuscular Hemoglobin 22.2 PG (27.0-31.0) Mean Corpuscular Hemoglobin Concent 30.3 G/DL (32.0-36.0) Red Cell Distribution Width 16.5 % (11.6-14.8) Platelet Count 238 K/UL (150-450) Mean Platelet Volume 5.7 FL (6.5-10.1) Neutrophils (%) (Auto) 54.2 % (45.0-75.0) Lymphocytes (%) (Auto) 37.5 % (20.0-45.0) Monocytes (%) (Auto) 5.1 % (1.0-10.0) Eosinophils (%) (Auto) 2.5 % (0.0-3.0) Basophils (%) (Auto) 0.8 % (0.0-2.0) Sodium Level 142 MMOL/L (136-145) Potassium Level 3.9 MMOL/L (3.5-5.1) Chloride Level 108 MMOL/L (98-107) Carbon Dioxide Level 24 MMOL/L (21-32) Anion Gap 10 mmol/L (5-15) Blood Urea Nitrogen 7 mg/dL (7-18) Creatinine 0.6 MG/DL (0.55-1.30) Estimat Glomerular Filtration Rate > 60 mL/min (>60) Glucose Level 95 MG/DL (74-106) Calcium Level 9.2 MG/DL (8.5-10.1) Total Bilirubin 0.4 MG/DL (0.2-1.0) Aspartate Amino Transf (AST/SGOT) 15 U/L (15-37) Alanine Aminotransferase (ALT/SGPT) 13 U/L (12-78) Alkaline Phosphatase 60 U/L (46-116) Troponin I 0.006 ng/mL (0.000-0.056) Pro-B-Type Natriuretic Peptide 1276 pg/mL (0-125) Total Protein 7.2 G/DL (6.4-8.2) Albumin 3.4 G/DL (3.4-5.0) Globulin 3.8 g/dL Albumin/Globulin Ratio 0.9 (1.0-2.7) Lipase 84 U/L (73-393) EKG Diagnostic Results Rate: normal Rhythm: NSR ST Segments: no acute changes Last Vital Signs Date Time Temp Pulse Resp B/P (MAP) Pulse Ox O2 Delivery O2 Flow Rate FiO2 07/31/18 14:09 98.1 64 18 197/104 95 Room Air Status: improved Disposition: ADMITTED INPATIENT Condition: Stable Jass Gonzalez MD Jul 31, 2018 14:29
[2018-07-31] MEDS ORDERED: Ipratropium 0.02% Inh Soln 2.5ml UD HHN ONE (14:30)
[2018-07-31] MEDS ORDERED: Solu-MEDROL 125mg Inj IVP ONE (14:30)
[2018-07-31] MEDS ORDERED: Albuterol ud Inhalation HHN ONE (14:30)
[2018-07-31] MEDS ORDERED: Morphine Sulfate 4mg/ml Inj (IV USE ONLY) IVP ONE (14:45)
[2018-07-31] MEDS ORDERED: ABILIFY2 MG ORAL (14:52)
[2018-07-31] MEDS ORDERED: SERTRALINE HCL50 MG ORAL (14:52)
[2018-07-31] MEDS ORDERED: MELATONIN3 MG ORAL (14:52)
[2018-07-31] MEDS ORDERED: QUETIAPINE FUMA50 MG ORAL (14:52)
[2018-07-31] MEDS ORDERED: MORPHINE SULFAT30 M8 PO (14:52)
--- NOTE | 2018-07-31 15:21 | NUR ---
ED Nurse Note: Pt. AAOX4. Brought in by ambulance from a [facility]pc home. Pt. was brought in due bilateral chronic leg pain. Pt is noted to be coughing and audible wheezing noted. Skin is intact. Ambulatory with assistance
[2018-07-31 16:19] LABS: BASOPHILS % (AUTO) 0.8 % (0.0-2.0); EOSINOPHILS % (AUTO) 2.5 % (0.0-3.0); HEMATOCRIT 37.4 % (37.0-47.0); HEMOGLOBIN 11.3 G/DL (12.0-16.0); LYMPHOCYTES % (AUTO) 37.5 % (20.0-45.0); MEAN CORPUSCULAR VOLUME 73 FL (80-99); MONOCYTES % (AUTO) 5.1 % (1.0-10.0); NEUTROPHILS % (AUTO) 54.2 % (45.0-75.0); PLATELET COUNT 238 K/UL (150-450); RED BLOOD COUNT 5.11 M/UL (4.20-5.40); RED CELL DISTRIBUTION WIDTH 16.5 % (11.6-14.8); WHITE BLOOD COUNT 7.3 K/UL (4.8-10.8)
[2018-07-31 16:44] LABS: ANION GAP 10 mmol/L (5-15); BLOOD UREA NITROGEN 7 mg/dL (7-18); CALCIUM 9.2 MG/DL (8.5-10.1); CARBON DIOXIDE 24 MMOL/L (21-32); CHLORIDE 108 MMOL/L (98-107); CREATININE 0.6 MG/DL (0.55-1.30); POTASSIUM 3.9 MMOL/L (3.5-5.1); SODIUM 142 MMOL/L (136-145)
[2018-07-31 16:55] LABS: ALANINE AMINOTRANSFERASE 13 U/L (12-78); ALBUMIN 3.4 G/DL (3.4-5.0); ALBUMIN/GLOBULIN RATIO 0.9 (1.0-2.7); ALKALINE PHOSPHATASE 60 U/L (46-116); ASPARTATE AMINO TRANSFERASE 15 U/L (15-37); BILIRUBIN,TOTAL 0.4 MG/DL (0.2-1.0)
[2018-07-31 17:01] VITALS: BP 176/94
--- NOTE | 2018-07-31 17:01 | NUR ---
ED Nurse Note: pt. refused to give urine. Dr. Gonzalez notified
[2018-07-31] MEDS ORDERED: oxyCODONE 5mg IR tab ORAL PRN (17:30)
[2018-07-31] MEDS ORDERED: Promethazine/Codeine 5ml UD ORAL PRN (17:30)
[2018-07-31] MEDS ORDERED: Nitroglycerin Subl 0.4mg tab SL PRN (17:30)
[2018-07-31] MEDS ORDERED: Albuterol/Ipratropium 3ml neb HHN PRN (17:30)
[2018-07-31] MEDS ORDERED: LORazepam Inj 2mg/ml 1ml IV PRN (17:30)
[2018-07-31] MEDS: Morphine Sulfate 2mg/ml Inj(IV/IM USE ONLY) IVP PRN ×2 (17:36→22:44)
[2018-07-31] MEDS ORDERED: Xarelto 10mg tab ORAL SCH (18:00)
[2018-07-31] MEDS: Furosemide 80mg tab ORAL SCH (18:00)
[2018-07-31] MEDS ORDERED: Solu-MEDROL 125mg Inj IV SCH (18:00)
--- NOTE | 2018-07-31 18:54 | NUR ---
ED Nurse Note: PT FINISHED THE DINNER TRAY [employer] HAM SANDWICH
--- NOTE | 2018-07-31 19:20 | NUR ---
HAND-OFF: Report received from Brenna DREW .
--- NOTE | 2018-07-31 20:28 | NUR ---
ED Nurse Note: Patient is resting comfortably, no s/s of acute distress. Patient refused rectal swab. agreed to MRS swab.
[2018-07-31 20:30] VITALS: BP 162/70
[2018-07-31] MEDS ORDERED: Theophylline ER 100mg ORAL SCH ×2 (21:00)
[2018-07-31] MEDS ORDERED: NovoLOG Insulin Flexpen SUBQ SCH (21:00)
--- NOTE | 2018-07-31 21:37 | NUR ---
ED Nurse Note: Patient is sleeping, does not want to be disturbed.
[2018-07-31 23:20] VITALS: BP 156/72
--- NOTE | 2018-08-01 00:40 | NUR ---
ED Nurse Note: REPORT CALLED IN TO ESSENCE DREW PRIOR TO TRANSPORT TO TELE. PATIENT IS A&OX4, NO S/S OF ACUTE DISTRESS. VITAL SIGNS STABLE. PATIENT ACCOMPANIED TO FLOOR BY LOCKER ROOM SUPERVISOR AND RN
[2018-08-01 01:10] VITALS: BP 169/94
--- NOTE | 2018-08-01 01:10 | NUR ---
NURSE NOTES: Received pt from ED via nahun. Received report from VIKI Workman. Pt is awake AOx4, in no acute distress. Placed pt on child monitor showing SR. Oriented pt to room and unit. Bed in loowest position, call light within reach. Admission orders noted and carried out.
[2018-08-01] MEDS: Xarelto 10mg tab ORAL SCH ×2 (01:58→17:32)
[2018-08-01] MEDS: Morphine Sulfate 2mg/ml Inj(IV/IM USE ONLY) IVP PRN (03:04)
[2018-08-01] MEDS: Solu-MEDROL 125mg Inj IV SCH ×4 (03:09→20:36)
[2018-08-01 04:00] VITALS: BP 117/76
[2018-08-01] MEDS: NovoLOG Insulin Flexpen SUBQ SCH ×4 (06:30→20:45)
--- NOTE | 2018-08-01 07:55 | NUR ---
HAND-OFF: Report given to VIKI Sotelo.
[2018-08-01 08:00] VITALS: BP 175/79
--- NOTE | 2018-08-01 08:00 | NUR ---
NURSE NOTES: report received from Diogo Gonzalez RN.Pt resting in bed awake,alert oriented,in no resp distress on RA,c/o pain to back requesting for pain med,,IV site to RFA intact ,skin warm and dry SR up x2 HOB elevated bed lock in lowest position,call cantor within reach will continue with plans of care.
[2018-08-01] MEDS: Hydromorphone 0.5mg/0.5ml inj IVP PRN ×6 (08:26→23:48)
[2018-08-01] MEDS: DiphenhydrAMINE 50mg/ml Inj IVP PRN ×6 (08:27→23:47)
--- NOTE | 2018-08-01 08:47 | General Progress Note ---
Assessment/Plan Assessment/Plan (1) Cervical and Lumbar DDD (2) Cervical and Lumbar Spondylosis (3) Cervical and Lumbar Herniated disc (4) Cervical and Lumbar Radiculopathy (5) H/o Cervical and Lumbar fusion (6) Right hip pain and OA Patient will be continued on Dilaudid and Oxycodone D/w Dr. Rodríguez and he concurred. Subjective Date patient seen: Aug 01, 2018 Time patient seen: 08:00 - am Allergies: Coded Allergies: ORANGE (Verified Allergy, Severe, Anaphylaxis, 06/06/18) PENICILLINS (Unverified Allergy, Unknown, 10/05/17) Subjective Constitutional: Reports: weakness HEENT: Reports: no symptoms Cardiovascular: Reports: no symptoms Respiratory: Reports: no symptoms Gastrointestinal/Abdominal: Reports: no symptoms Genitourinary: Reports: no symptoms Neurologic/Psychiatric: Reports: weakness Endocrine: Reports: no symptoms Hematologic/Lymphatic: Reports: no symptoms Subjective Patient is a known patient from prior admission and has returned with continued neck, LBP and hip pain. Started on Dilaudid 0.5mg IV Q3H PRN and Oxycodone 10mg PO 1 tab Q6H PRN moderate pain. Objective Last 24 Hour Vital Signs Date Time Temp Pulse Resp B/P (MAP) Pulse Ox O2 Delivery O2 Flow Rate FiO2 08/01/18 04:00 97.8 49 18 117/76 (90) 92 08/01/18 04:00 49 08/01/18 01:35 Room Air 08/01/18 01:19 65 08/01/18 01:10 89.2 65 18 169/94 (119) 98 08/01/18 00:51 98.1 57 11 156/72 95 Room Air 21 07/31/18 23:20 98.1 57 11 156/72 95 Room Air 07/31/18 20:30 98.1 60 12 162/70 97 Room Air 07/31/18 18:06 98.1 07/31/18 17:01 98.1 69 18 176/94 100 Room Air 07/31/18 16:44 98.1 07/31/18 15:10 66 16 100 Room Air 21 07/31/18 14:38 54 16 94 Room Air 21 07/31/18 14:36 54 16 Room Air 21 07/31/18 14:09 98.1 64 18 197/104 95 Room Air Intake and Output 07/31/18 08/01/18 18:59 06:59 Intake Total 120 ml Output Total 0 ml Balance 0 ml 120 ml Intake Oral 120 ml Output Urine Total 0 ml Laboratory Tests 07/31/18 14:50: Arterial Blood pH 7.410, Arterial Blood Partial Pressure CO2 37.7, Arterial Blood Partial Pressure O2 65.6L, Arterial Blood HCO3 23.4, Arterial Blood Oxygen Saturation 92.4L, Arterial Blood Base Excess -1.0, Monty Test Positive 07/31/18 15:55: White Blood Count 7.3, Red Blood Count 5.11, Hemoglobin 11.3L, Hematocrit 37.4, Mean Corpuscular Volume 73L, Mean Corpuscular Hemoglobin 22.2L, Mean Corpuscular Hemoglobin Concent 30.3L, Red Cell Distribution Width 16.5H, Platelet Count 238, Mean Platelet Volume 5.7L, Neutrophils (%) (Auto) 54.2, Lymphocytes (%) (Auto) 37.5, Monocytes (%) (Auto) 5.1, Eosinophils (%) (Auto) 2.5, Basophils (%) (Auto) 0.8, Sodium Level 142, Potassium Level 3.9, Chloride Level 108H, Carbon Dioxide Level 24, Anion Gap 10, Blood Urea Nitrogen 7, Creatinine 0.6, Estimat Glomerular Filtration Rate > 60, Glucose Level 95, Calcium Level 9.2, Total Bilirubin 0.4, Aspartate Amino Transf (AST/SGOT) 15, Alanine Aminotransferase (ALT/SGPT) 13, Alkaline Phosphatase 60, Troponin I 0.006, Pro-B-Type Natriuretic Peptide 1276H, Total Protein 7.2, Albumin 3.4, Globulin 3.8, Albumin/Globulin Ratio 0.9L, Lipase 84 07/31/18 16:50: Prothrombin Time 10.4, Prothromb Time International Ratio 1.0, Activated Partial Thromboplast Time 29 Height (Feet): 5 Height (Inches): 4.00 Weight (Pounds): 180 Objective General Appearance: no apparent distress, alert EENT: PERRL/EOMI Neck: non-tender, supple Cardiovascular: normal rate, regular rhythm Respiratory/Chest: lungs clear, normal breath sounds Abdomen: non tender, soft Extremities: normal range of motion, non-tender Edema: trace edema Neurologic: alert, oriented x 3 Skin: warm/dry Ludwig Silver Aug 01, 2018 08:47
[2018-08-01] MEDS: Theophylline ER 100mg ORAL SCH ×2 (09:16→21:00)
[2018-08-01] MEDS: Doxazosin 1mg Tab ORAL SCH (09:17)
[2018-08-01] MEDS: Furosemide 80mg tab ORAL SCH ×2 (09:19→17:33)
--- NOTE | 2018-08-01 11:29 | NUR ---
CASE MANAGEMENT:REVIEW 63 YR OLD FEMALE BIBA FROM [facility] CC; RT HIP PAIN. COUGHING AND AUDIBLE WHEEZING SI: CHF. RT HIP SUBLUXATION AVASCULAR NECROSIS OF RT HIP BONE 98.1 64 18 197/104 95% ON RA BNP+1276 TROPONIN(-) IS: DUONEB HHN IV SOLUMEDROL IV MORPHINE CHEST XRAY SPUTUM CX : TO TELEMETRY
--- NOTE | 2018-08-01 11:39 | Diagnostic Imaging Report ---
Indication: Shortness of breath Technique: One view of the chest Comparison: 06/05/2018 Findings: Body habitus limits evaluation. Heart is enlarged. No definite acute infiltrates, effusions, or congestion. Surgical hardware is seen in the neck. There is no significant interim change Impression: Cardiomegaly. No definite acute process
[2018-08-01 12:00] VITALS: BP 117/99
--- NOTE | 2018-08-01 12:00 | NUR ---
NURSE NOTES: Pt cleaned and kept dry,diaper changed,no c/o pain at this time.
--- NOTE | 2018-08-01 12:21 | Consultation ---
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 Her chest pain in left upper chest radiating to her L shoulder. she is admitted to telemetry for further management. Allergies: Coded Allergies: ORANGE (Verified Allergy, Severe, Anaphylaxis, 06/06/18) PENICILLINS (Unverified Allergy, Unknown, 10/05/17) Medication History Scheduled Amlodipine Besylate* (Amlodipine Besylate*), 10 MG ORAL DAILY, (Reported) Aripiprazole* (Abilify*), 5 MG ORAL DAILY, (Reported) Doxazosin Mesylate* (Doxazosin Mesylate*), 1 MG ORAL HS, (Reported) Escitalopram Oxalate* (Lexapro*), 20 MG ORAL BID, (Reported) Furosemide (Furosemide), 20 MG ORAL BID, (Reported) Gabapentin* (Gabapentin*), 900 MG ORAL THREE TIMES A DAY, (Reported) Insulin Regular, Human* (Novolin R*), 0 SUBQ .SLIDING SCALE, (Reported) Losartan Potassium* (Cozaar*), 100 MG ORAL TWICE A DAY, (Reported) Multivitamins* (Multivitamins*), 1 TAB ORAL DAILY, (Reported) Potassium Chloride (Potassium Chloride), 10 MEQ PO DAILY, (Reported) Prednisone* (Prednisone*), 20 MG ORAL BID Quetiapine Fumarate* (Quetiapine Fumarate*), 50 MG ORAL DAILY, (Reported) Rivaroxaban (Xarelto*), 10 MG ORAL BID, (Reported) Rivaroxaban (Xarelto*), 20 MG ORAL DAILY, (Reported) Sertraline Hcl* (Zoloft*), 50 MG ORAL DAILY, (Reported) Theophylline (Theodur*), 100 MG ORAL EVERY 12 HOURS Scheduled PRN Albuterol Sulfate* (Albuterol Sulfate Mdi*), 2 PUFF INH Q4H PRN for cough/ wheezing Baclofen* (Baclofen*), 10 MG ORAL PRN PRN for For Pain, (Reported) Hydrocodone Bit/Acetaminophen 10-325* (Dufur 10-325*), 1 TAB ORAL Q4H PRN for For Pain, (Reported) Melatonin (Melatonin), 3 MG ORAL BEDTIME PRN for Insomnia, (Reported) Nitroglycerin (Nitrostat), 0.4 MG SL Q5M X3 DOSES PRN for CHEST PAIN, (Reported) Oxycodone Hcl* (Oxycodone Hcl*), 10 MG ORAL Q6HR PRN for For Pain, (Reported) Temazepam* (Restoril*), 15 MG ORAL BEDTIME PRN for Insomnia, (Reported) Miscellaneous Medications Acetaminophen (Acetaminophen), 325 MG PO, (Reported) Morphine Sulfate (Morphine Sulfate Er), 30 MG PO, (Reported) Durable Medical Equipment Nebulizer (Compact Compressor Nebulizer), TOM , (DME) Patient History Healthcare decision maker N Resuscitation status Full Code Advanced Directive on File Past Medical/Surgical History Past Medical/Surgical History: (1) CAD (coronary artery disease) (2) Left-sided weakness (3) History of TX (myocardial infarction) (4) Diabetes (5) PUD (peptic ulcer disease) (6) GERD (gastroesophageal reflux disease) (7) Right hip subluxation Review of Systems All Other Systems: negative except mentioned in HPI Physical Exam General Appearance: WD/WN Lines, tubes and drains: peripheral HEENT: normocephalic, atraumatic, PERRL Neck: non-tender, normal alignment Respiratory/Chest: chest wall non-tender, lungs clear Cardiovascular/Chest: normal peripheral pulses, normal rate Abdomen: normal bowel sounds, non tender Genitourinary/Rectal: normal genital exam Extremities: normal range of motion 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 Lymphatic: anterior cervical Last 24 Hour Vital Signs Date Time Temp Pulse Resp B/P (MAP) Pulse Ox O2 Delivery O2 Flow Rate FiO2 08/01/18 10:42 60 175/79 08/01/18 08:00 48 08/01/18 04:00 97.8 49 18 117/76 (90) 92 08/01/18 04:00 49 08/01/18 01:35 Room Air 08/01/18 01:19 65 08/01/18 01:10 89.2 65 18 169/94 (119) 98 08/01/18 00:51 98.1 57 11 156/72 95 Room Air 21 07/31/18 23:20 98.1 57 11 156/72 95 Room Air 07/31/18 20:30 98.1 60 12 162/70 97 Room Air 07/31/18 18:06 98.1 07/31/18 17:01 98.1 69 18 176/94 100 Room Air 07/31/18 16:44 98.1 07/31/18 15:10 66 16 100 Room Air 21 07/31/18 14:38 54 16 94 Room Air 21 07/31/18 14:36 54 16 Room Air 21 07/31/18 14:09 98.1 64 18 197/104 95 Room Air Intake and Output 07/31/18 08/01/18 18:59 06:59 Intake Total 120 ml Output Total 0 ml Balance 0 ml 120 ml Intake Oral 120 ml Output Urine Total 0 ml Laboratory Tests Test 07/31/18 14:50 07/31/18 15:55 07/31/18 16:50 Arterial Blood pH 7.410 (7.350-7.450) Arterial Blood Partial Pressure CO2 37.7 mmHg (35.0-45.0) Arterial Blood Partial Pressure O2 65.6 mmHg (75.0-100.0) L Arterial Blood HCO3 23.4 mmol/L (22.0-26.0) Arterial Blood Oxygen Saturation 92.4 % (95-100) L Arterial Blood Base Excess -1.0 (-2-2) Monty Test Positive White Blood Count 7.3 K/UL (4.8-10.8) Red Blood Count 5.11 M/UL (4.20-5.40) Hemoglobin 11.3 G/DL (12.0-16.0) L Hematocrit 37.4 % (37.0-47.0) Mean Corpuscular Volume 73 FL (80-99) L Mean Corpuscular Hemoglobin 22.2 PG (27.0-31.0) L Mean Corpuscular Hemoglobin Concent 30.3 G/DL (32.0-36.0) L Red Cell Distribution Width 16.5 % (11.6-14.8) H Platelet Count 238 K/UL (150-450) Mean Platelet Volume 5.7 FL (6.5-10.1) L Neutrophils (%) (Auto) 54.2 % (45.0-75.0) Lymphocytes (%) (Auto) 37.5 % (20.0-45.0) Monocytes (%) (Auto) 5.1 % (1.0-10.0) Eosinophils (%) (Auto) 2.5 % (0.0-3.0) Basophils (%) (Auto) 0.8 % (0.0-2.0) Sodium Level 142 MMOL/L (136-145) Potassium Level 3.9 MMOL/L (3.5-5.1) Chloride Level 108 MMOL/L (98-107) H Carbon Dioxide Level 24 MMOL/L (21-32) Anion Gap 10 mmol/L (5-15) Blood Urea Nitrogen 7 mg/dL (7-18) Creatinine 0.6 MG/DL (0.55-1.30) Estimat Glomerular Filtration Rate > 60 mL/min (>60) Glucose Level 95 MG/DL (74-106) Calcium Level 9.2 MG/DL (8.5-10.1) Total Bilirubin 0.4 MG/DL (0.2-1.0) Aspartate Amino Transf (AST/SGOT) 15 U/L (15-37) Alanine Aminotransferase (ALT/SGPT) 13 U/L (12-78) Alkaline Phosphatase 60 U/L (46-116) Troponin I 0.006 ng/mL (0.000-0.056) Pro-B-Type Natriuretic Peptide 1276 pg/mL (0-125) H Total Protein 7.2 G/DL (6.4-8.2) Albumin 3.4 G/DL (3.4-5.0) Globulin 3.8 g/dL Albumin/Globulin Ratio 0.9 (1.0-2.7) L Lipase 84 U/L (73-393) Prothrombin Time 10.4 SEC (9.30-11.50) Prothromb Time International Ratio 1.0 (0.9-1.1) Activated Partial Thromboplast Time 29 SEC (23-33) Microbiology Date/Time Source Procedure Growth Status 07/31/18 15:16 Nasal Nares Influenza Types A,B Antigen (ONDINA) - Final Complete Height (Feet): 5 Height (Inches): 4.00 Weight (Pounds): 180 Medications Current Medications Medications (Trade) Dose Ordered Sig/Jael Route PRN Reason Start Time Stop Time Status Last Admin Dose Admin Albuterol/ Ipratropium (Albuterol/ Ipratropium) 3 ml Q4H PRN HHN dyspnea 07/31/18 17:30 08/05/18 17:29 Amlodipine Besylate (Norvasc) 10 mg DAILY ORAL 08/01/18 09:00 08/31/18 08:59 08/01/18 10:42 Aripiprazole (Abilify) 5 mg DAILY ORAL 08/01/18 09:00 08/31/18 08:59 08/01/18 09:17 Baclofen (Lioresal) 10 mg DAILYPRN PRN ORAL For Pain 07/31/18 17:30 08/30/18 17:29 08/01/18 09:22 Dextrose (Dextrose 50%) 25 ml Q30M PRN IV Hypoglycemia 07/31/18 17:30 08/30/18 17:29 Dextrose (Dextrose 50%) 50 ml Q30M PRN IV Hypoglycemia 07/31/18 17:30 08/30/18 17:29 Diphenhydramine HCl (Benadryl) 25 mg Q3H PRN IVP Itching 08/01/18 08:00 08/31/18 07:59 08/01/18 11:34 Doxazosin Mesylate (Cardura) 1 mg DAILY ORAL 08/01/18 09:00 08/31/18 08:59 08/01/18 09:17 Furosemide (Lasix) 20 mg BID ORAL 07/31/18 18:00 08/30/18 17:59 08/01/18 09:19 Gabapentin (Neurontin) 900 mg THREE TIMES A DAY ORAL 08/01/18 09:00 08/31/18 08:59 08/01/18 09:18 Hydromorphone HCl (Dilaudid) 0.5 mg Q3H PRN IVP Severe Pain (Pain Scale 7-10) 08/01/18 08:00 08/08/18 07:59 08/01/18 11:33 Insulin Aspart (NovoLOG) BEFORE MEALS AND HS SUBQ 08/01/18 06:30 08/31/18 06:29 08/01/18 11:44 Lorazepam (Ativan 2mg/ml 1ml) 0.5 mg Q4H PRN IV For Anxiety 07/31/18 17:30 08/07/18 17:29 Methylprednisolone Sodium Succinate (Solu-MEDROL) 60 mg Q6H IV 08/01/18 02:00 08/31/18 01:59 08/01/18 08:32 Nitroglycerin (Ntg) 0.4 mg Q5M X 3 DOSES PRN SL Prn Chest Pain 07/31/18 17:30 08/30/18 17:29 Ondansetron HCl (Zofran) 4 mg Q6H PRN IVP Nausea & Vomiting 07/31/18 17:30 08/30/18 17:29 Oxycodone HCl (Roxicodone) 10 mg Q6H PRN ORAL Moderate Pain (Pain Scale 4-6) 07/31/18 17:30 08/07/18 17:29 Promethazine HCl/ Codeine (Phenergan with Codeine) 5 ml Q6H PRN ORAL cough 07/31/18 17:30 08/30/18 17:29 Quetiapine Fumarate (SEROquel) 50 mg DAILY ORAL 08/01/18 09:00 08/31/18 08:59 08/01/18 09:16 Rivaroxaban (Xarelto) 20 mg QPM ORAL 08/01/18 01:42 08/31/18 01:41 08/01/18 01:58 Temazepam (Restoril) 15 mg HSPRN PRN ORAL Insomnia 07/31/18 17:30 08/07/18 17:29 Theophylline (Андрей-Dur) 100 mg EVERY 12 HOURS ORAL 08/01/18 09:00 08/31/18 08:59 08/01/18 09:16 Assessment/Plan Problem List: (1) ACS (acute coronary syndrome) ICD Codes: I24.9 - Acute ischemic heart disease, unspecified SNOMED: 044721244 (2) COPD (chronic obstructive pulmonary disease) ICD Codes: J44.9 - Chronic obstructive pulmonary disease, unspecified SNOMED: 39948883 (3) Right hip subluxation ICD Codes: S73.001A - Unspecified subluxation of right hip, initial encounter SNOMED: 995622419 (4) HTN (hypertension) ICD Codes: I10 - Essential (primary) hypertension SNOMED: 35643616 (5) History of TX (myocardial infarction) ICD Codes: I25.2 - Old myocardial infarction SNOMED: 307904627 (6) CAD (coronary artery disease) ICD Codes: I25.10 - Atherosclerotic heart disease of [place] coronary artery without angina pectoris SNOMED: 96071051 (7) Diabetes ICD Codes: E11.9 - Type 2 diabetes mellitus without complications SNOMED: 30318012 (8) Anemia ICD Codes: D64.9 - Anemia, unspecified SNOMED: 909923740 (9) Left-sided weakness ICD Codes: R53.1 - Weakness SNOMED: 991259873 Assessment/Plan serial ekg, troponin cardiology to see echocardiogram symptomatic treatment respiratory treatment dvt prophylaxis Leo Mnedoza MD Aug 01, 2018 12:21
[2018-08-01 16:00] VITALS: BP 143/78
--- NOTE | 2018-08-01 17:37 | NUR ---
NURSE NOTES: Pt resting quietly in bed,continue to c/o back pain and given pain medic Q3 hrs ATC,will continue to monitor pt's pain threshold.
--- NOTE | 2018-08-01 19:20 | NUR ---
NURSE NOTES: Received report from Celia Sotelo RN. Pt is resting in the bed w/o distress in RA, and is able to make needs known. SR in the monitor. Pt was instructed to have sputum in the bottle, pt verbalized the understanding. Bed alarm on, bed in lowest position with 2 side rails up, and breaks are engaged. Call light and side table are w/in reach. Will continue to monitor.
--- NOTE | 2018-08-01 19:30 | History and Physical Report ---
DATE OF ADMISSION: 07/31/2018 CONSULTANTS: 1. Ras Haines M.D. 2. Leo Mendoza M.D. 3. Ale Rodríguez M.D. 4. Corbin Live M.D. CHIEF COMPLAINT: Shortness of breath, chronic obstructive pulmonary disease exacerbation, chronic right hip pain, and CHF. BRIEF HISTORY: This is a 63-year-old female from [facility] presents with a three-day increased shortness of breath, came to [facility], diagnosed with exacerbation of COPD and right hip pain with congestive heart failure and the patient was admitted to telemetry for further care. Currently, slight short of breath in bed. No complaint. REVIEW OF SYSTEMS: No chest pain. Slight short of breath. No nausea, vomiting, or diarrhea. PAST MEDICAL HISTORY: Includes avascular necrosis of the right hip chronic obstructive pulmonary disease congestive heart failure hypertension diabetes. PAST SURGICAL HISTORY: Gallbladder. MEDICATIONS: Include Norvasc, Abilify, Cardura, Seroquel, Neurontin, Richard, Dilaudid, Benadryl, NovoLog, Solu-Medrol, Xarelto, and Lasix. ALLERGIES: Penicillin. SOCIAL HISTORY: No smoking. No alcohol. No intravenous drug abuse. FAMILY HISTORY: Noncontributory. PHYSICAL EXAMINATION: GENERAL: Calm in bed, slight short of breath, oriented x3, and in no acute distress. VITAL SIGNS: Temperature is 98 degrees, pulse 94, respirations 18, and blood pressure 117/99. CARDIOVASCULAR: No murmurs. LUNGS: Poor air exchange. ABDOMEN: Bowel sounds distant. EXTREMITIES: No cyanosis, clubbing, or edema. NEUROLOGIC: The patient moves all extremities. Slightly weak. LABORATORY AND DIAGNOSTIC DATA: Labs, at this time, show hemoglobin 11.3, otherwise CBC is normal. Chloride 108. Troponin 0.006. BNP is 1276. Otherwise, BMP is normal. INR is 1.0. PTT is 29. ASSESSMENT: 1. Shortness of breath. 2. Chronic obstructive pulmonary disease exacerbation. 3. Congestive heart failure. 4. Chronic right hip pain. 5. History of avascular necrosis. PLAN: 1. O2 pulmonary treatment. 2. Blood pressure and pain control. 3. Dietary followup. 4. PT and dietary evaluation. 5. CBC and BMP in the morning. Reymundo Graves D.O. DR: MARIELA JOB#: [id number] CC:
[2018-08-01 20:00] VITALS: BP 149/70
--- NOTE | 2018-08-01 20:27 | NUR ---
HAND-OFF: Report given to Tena Mcgowan RN pt resting in bed denies any c/o pain at this time..
--- NOTE | 2018-08-01 23:54 | NUR ---
NURSE NOTES: Pt c/o pain 03/09 on her back. Meds were given, see eMAR. Pt requested the next dose around clock which is 0300. Also she wanted to have 0200 scheduled med, Solu-medrol at 0300. Pt requested to skip 0400 VS check up incase she is sleeping. Will continue to monitor. Addendum: 08/02/18 at 0359 by SONIA BENAVIDEZ RN Pain med and solu-medrol was given at 0300 instead of 0200 d/t pt's request. Pt was wet, and cleaned, dried and repositioned. Pt tolerated well. Sputum culture was collected and turned to the lab.
[2018-08-02] VITALS: BP 152/73
[2018-08-02] MEDS: Solu-MEDROL 125mg Inj IV SCH ×3 (02:53→22:05)
[2018-08-02] MEDS: DiphenhydrAMINE 50mg/ml Inj IVP PRN ×7 (02:53→22:06)
[2018-08-02] MEDS: Hydromorphone 0.5mg/0.5ml inj IVP PRN ×7 (02:54→22:07)
[2018-08-02 04:00] VITALS: BP 154/63
[2018-08-02] MEDS: NovoLOG Insulin Flexpen SUBQ SCH ×4 (06:04→21:00)
--- NOTE | 2018-08-02 06:30 | NUR ---
NURSE NOTES: Pt refused to VRE, CRE swap d/t moving can cause her pain on her back, also refused morning lab bllod drawn d/t not to be disturbed her sleep at this time. Will continue to monitor.
--- NOTE | 2018-08-02 07:29 | NUR ---
HAND-OFF: Report given to Johnnie Dinh RN. Stable condition.
--- NOTE | 2018-08-02 07:30 | NUR ---
NURSE NOTES: Received patient batool Pace RN in bed, complain of pain 7/10, pain medication is not due till 9AM, explained to patient. Patient is not in any acute distress. IV is intact and patent. Bed is lowest position, call light is within reach. Will continue with the plan of care.
--- NOTE | 2018-08-02 07:42 | NUR ---
NURSE NOTES: Marcie from lab called , patient is positive for MRSA Nares. Will notify
[2018-08-02 08:00] VITALS: BP 157/70
[2018-08-02] MEDS: Theophylline ER 100mg ORAL SCH ×2 (09:13→22:05)
[2018-08-02] MEDS: Doxazosin 1mg Tab ORAL SCH (09:15)
[2018-08-02] MEDS: Furosemide 80mg tab ORAL SCH ×2 (09:17→17:09)
--- NOTE | 2018-08-02 09:36 | NUR ---
P.T Note: P.T evaluation attempted however patient requested to be seen later today after taking her pain medication. P.T will follow up.
--- NOTE | 2018-08-02 11:20 | Pulmonology Progress Note ---
Assessment/Plan Problems: (1) ACS (acute coronary syndrome) (2) COPD (chronic obstructive pulmonary disease) (3) Right hip subluxation (4) HTN (hypertension) (5) History of CA (myocardial infarction) (6) CAD (coronary artery disease) (7) Diabetes (8) Anemia (9) Left-sided weakness Assessment/Plan improving slowly check electrolytes decrease steroids to Q12 cxr and bnp in am check sputum continue abx cardiology evaluation Subjective ROS Limited/Unobtainable: Yes Constitutional: Reports: no symptoms Allergies: Coded Allergies: ORANGE (Verified Allergy, Severe, Anaphylaxis, 06/06/18) PENICILLINS (Unverified Allergy, Unknown, 10/05/17) Objective Last 24 Hour Vital Signs Date Time Temp Pulse Resp B/P (MAP) Pulse Ox O2 Delivery O2 Flow Rate FiO2 08/02/18 09:15 65 157/70 08/02/18 09:00 Room Air 08/02/18 08:00 98.5 65 18 157/70 (99) 97 08/02/18 08:00 54 08/02/18 04:04 61 08/02/18 04:00 98.4 61 18 154/63 (93) 97 08/02/18 00:00 78 08/02/18 00:00 98.9 78 18 152/73 (99) 98 08/01/18 21:00 Room Air 08/01/18 20:00 99.0 78 18 149/70 (96) 95 08/01/18 19:48 77 08/01/18 16:00 75 08/01/18 16:00 99.3 78 18 143/78 (99) 95 08/01/18 12:00 63 08/01/18 12:00 98.3 94 18 117/99 (105) 95 Intake and Output 08/01/18 08/02/18 18:59 06:59 Intake Total 240 ml 250 ml Balance 240 ml 250 ml Intake Oral 240 ml 250 ml # Voids 3 3 General Appearance: WD/WN HEENT: normocephalic, atraumatic Respiratory/Chest: chest wall non-tender, lungs clear, accessory muscle use, crackles/rales Breasts: no masses Cardiovascular: normal peripheral pulses, normal rate Abdomen: normal bowel sounds, soft, non tender Genitourinary: normal external genitalia Skin: no rash 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 Lymphatic: no neck adenopathy Microbiology Date/Time Source Procedure Growth Status 07/31/18 16:18 Blood Blood Culture - Preliminary NO GROWTH AFTER 24 HOURS Resulted 07/31/18 16:15 Blood Blood Culture - Preliminary NO GROWTH AFTER 24 HOURS Resulted 08/01/18 00:00 Nasal Nares MRSA Culture - Final Staphylococcus Aureus - Mrsa Complete 07/31/18 15:16 Nasal Nares Influenza Types A,B Antigen (ONDINA) - Final Complete Current Medications Medications (Trade) Dose Ordered Sig/Jael Route PRN Reason Start Time Stop Time Status Last Admin Dose Admin Albuterol/ Ipratropium (Albuterol/ Ipratropium) 3 ml Q4H PRN HHN dyspnea 07/31/18 17:30 08/05/18 17:29 Amlodipine Besylate (Norvasc) 10 mg DAILY ORAL 08/01/18 09:00 08/31/18 08:59 08/02/18 09:15 Aripiprazole (Abilify) 5 mg DAILY ORAL 08/01/18 09:00 08/31/18 08:59 08/02/18 09:13 Baclofen (Lioresal) 10 mg DAILYPRN PRN ORAL For Pain 07/31/18 17:30 08/30/18 17:29 08/01/18 09:22 Dextrose (Dextrose 50%) 25 ml Q30M PRN IV Hypoglycemia 07/31/18 17:30 08/30/18 17:29 Dextrose (Dextrose 50%) 50 ml Q30M PRN IV Hypoglycemia 07/31/18 17:30 08/30/18 17:29 Diphenhydramine HCl (Benadryl) 25 mg Q3H PRN IVP Itching 08/01/18 08:00 08/31/18 07:59 08/02/18 09:15 Doxazosin Mesylate (Cardura) 1 mg DAILY ORAL 08/01/18 09:00 08/31/18 08:59 08/02/18 09:15 Furosemide (Lasix) 20 mg BID ORAL 07/31/18 18:00 08/30/18 17:59 08/02/18 09:17 Gabapentin (Neurontin) 900 mg THREE TIMES A DAY ORAL 08/01/18 09:00 08/31/18 08:59 08/02/18 09:13 Hydromorphone HCl (Dilaudid) 0.5 mg Q3H PRN IVP Severe Pain (Pain Scale 7-10) 08/01/18 08:00 08/08/18 07:59 08/02/18 09:16 Insulin Aspart (NovoLOG) BEFORE MEALS AND HS SUBQ 08/01/18 06:30 08/31/18 06:29 08/02/18 06:04 Lorazepam (Ativan 2mg/ml 1ml) 0.5 mg Q4H PRN IV For Anxiety 07/31/18 17:30 08/07/18 17:29 Methylprednisolone Sodium Succinate (Solu-MEDROL) 60 mg EVERY 12 HOURS IV 08/02/18 21:00 08/31/18 01:59 Nitroglycerin (Ntg) 0.4 mg Q5M X 3 DOSES PRN SL Prn Chest Pain 07/31/18 17:30 08/30/18 17:29 Ondansetron HCl (Zofran) 4 mg Q6H PRN IVP Nausea & Vomiting 07/31/18 17:30 08/30/18 17:29 Oxycodone HCl (Roxicodone) 10 mg Q6H PRN ORAL Moderate Pain (Pain Scale 4-6) 07/31/18 17:30 08/07/18 17:29 Promethazine HCl/ Codeine (Phenergan with Codeine) 5 ml Q6H PRN ORAL cough 07/31/18 17:30 08/30/18 17:29 Quetiapine Fumarate (SEROquel) 50 mg DAILY ORAL 08/01/18 09:00 08/31/18 08:59 08/02/18 09:12 Rivaroxaban (Xarelto) 20 mg QPM ORAL 08/01/18 01:42 08/31/18 01:41 08/01/18 17:32 Temazepam (Restoril) 15 mg HSPRN PRN ORAL Insomnia 07/31/18 17:30 08/07/18 17:29 Theophylline (Андрей-Dur) 100 mg EVERY 12 HOURS ORAL 08/01/18 09:00 08/31/18 08:59 08/02/18 09:13 Leo Mendoza MD Aug 02, 2018 11:20
--- NOTE | 2018-08-02 11:44 | NUR ---
CARDIOLOGY Pt refused 2D Echo because she had it done 2 months ago.
--- NOTE | 2018-08-02 13:36 | NUR ---
P.T Note: P.T evaluation reattempted however patient refused to participate despite receiving pain medication. Pt. stated she wants to consult with the home office claim specialist first in regards to her R hip before participating in P.T. evaluation until then pt will not be participating in P.T evaluation. P.T will follow patient's request. RN notified.
--- NOTE | 2018-08-02 14:06 | NUR ---
NURSE NOTES: Patient refused blood drawn, lab attempted several times and still refuses, refused accu-cheks, 2D echo, and PT. Patient is non-compliance. Notified Dr. Graves. Awaiting call back. Will continue to monitor.
--- NOTE | 2018-08-02 14:08 | General Progress Note ---
Assessment/Plan Problem List: (1) COPD (chronic obstructive pulmonary disease) ICD Codes: J44.9 - Chronic obstructive pulmonary disease, unspecified SNOMED: 35554581 (2) Avascular necrosis of bone of right hip ICD Codes: M87.051 - Idiopathic aseptic necrosis of right femur SNOMED: 776083507 (3) Chronic congestive heart failure ICD Codes: I50.9 - Heart failure, unspecified SNOMED: 57850798 (4) Chronic pain ICD Codes: G89.29 - Other chronic pain SNOMED: 86551770 (5) Anemia ICD Codes: D64.9 - Anemia, unspecified SNOMED: 190810085 (6) HTN (hypertension) ICD Codes: I10 - Essential (primary) hypertension SNOMED: 75917569 (7) Diabetes ICD Codes: E11.9 - Type 2 diabetes mellitus without complications SNOMED: 34545649 Status: unchanged Assessment/Plan o2 pulm tx pt diet pain control cbc bmp am Subjective Constitutional: Reports: weakness Allergies: Coded Allergies: ORANGE (Verified Allergy, Severe, Anaphylaxis, 06/06/18) PENICILLINS (Unverified Allergy, Unknown, 10/05/17) All Systems: reviewed and negative except above Subjective sl back pain Objective Last 24 Hour Vital Signs Date Time Temp Pulse Resp B/P (MAP) Pulse Ox O2 Delivery O2 Flow Rate FiO2 08/02/18 09:15 65 157/70 08/02/18 09:00 Room Air 08/02/18 08:00 98.5 65 18 157/70 (99) 97 08/02/18 08:00 54 08/02/18 04:04 61 08/02/18 04:00 98.4 61 18 154/63 (93) 97 08/02/18 00:00 78 08/02/18 00:00 98.9 78 18 152/73 (99) 98 08/01/18 21:00 Room Air 08/01/18 20:00 99.0 78 18 149/70 (96) 95 08/01/18 19:48 77 08/01/18 16:00 75 08/01/18 16:00 99.3 78 18 143/78 (99) 95 Intake and Output 08/01/18 08/02/18 18:59 06:59 Intake Total 240 ml 250 ml Balance 240 ml 250 ml Intake Oral 240 ml 250 ml # Voids 3 3 Height (Feet): 5 Height (Inches): 4.00 Weight (Pounds): 176 General Appearance: alert EENT: normal ENT inspection Neck: normal alignment Cardiovascular: normal peripheral pulses, normal rate, regular rhythm Respiratory/Chest: chest wall non-tender, lungs clear, normal breath sounds Abdomen: normal bowel sounds, non tender, soft Extremities: normal inspection Edema: no edema noted Arm (L), no edema noted Arm (R), no edema noted Leg (L), no edema noted Leg (R), no edema noted Pedal (L), no edema noted Pedal (R), no edema noted Generalized Neurologic: responsive, motor weakness Skin: normal pigmentation, warm/dry Reymundo Graves DO Aug 02, 2018 14:08
--- NOTE | 2018-08-02 15:11 | NUR ---
CASE MANAGEMENT:REVIEW 08/02/18 SI: ACS. COPD. RT HIP SUBLUXATION 98.5 65 18 157/70 97% ON RA IS: IV SOLUMEDROL Q12 NORVASC PO QD CARDURA PO QD NEURONTIN PO TID JANAE-DUR PO Q12 XARELTO PO QPM LASIX PO BID : TELEMETRY STATUS
[2018-08-02 16:00] VITALS: BP 127/69
[2018-08-02] MEDS: Xarelto 10mg tab ORAL SCH (17:10)
--- NOTE | 2018-08-02 17:14 | General Progress Note ---
Assessment/Plan Assessment/Plan (1) Cervical and Lumbar DDD (2) Cervical and Lumbar Spondylosis (3) Cervical and Lumbar Herniated disc (4) Cervical and Lumbar Radiculopathy (5) H/o Cervical and Lumbar fusion (6) Right hip pain and OA Patient will be continued on Dilaudid and Oxycodone D/w Dr. Rodríguez and he concurred. Subjective Date patient seen: Aug 02, 2018 Time patient seen: 03:30 - pm Allergies: Coded Allergies: ORANGE (Verified Allergy, Severe, Anaphylaxis, 06/06/18) PENICILLINS (Unverified Allergy, Unknown, 10/05/17) Subjective Constitutional: Reports: weakness HEENT: Reports: no symptoms Cardiovascular: Reports: no symptoms Respiratory: Reports: no symptoms Gastrointestinal/Abdominal: Reports: no symptoms Genitourinary: Reports: no symptoms Neurologic/Psychiatric: Reports: weakness Endocrine: Reports: no symptoms Hematologic/Lymphatic: Reports: no symptoms Subjective Patient is in bed and pain has been stable on the Dilaudid and Oxycodone. No new complaints. Objective Last 24 Hour Vital Signs Date Time Temp Pulse Resp B/P (MAP) Pulse Ox O2 Delivery O2 Flow Rate FiO2 08/02/18 16:00 78 08/02/18 16:00 98.8 78 18 127/69 (88) 97 08/02/18 12:00 71 08/02/18 09:15 65 157/70 08/02/18 09:00 Room Air 08/02/18 08:00 98.5 65 18 157/70 (99) 97 08/02/18 08:00 54 08/02/18 04:04 61 08/02/18 04:00 98.4 61 18 154/63 (93) 97 08/02/18 00:00 78 08/02/18 00:00 98.9 78 18 152/73 (99) 98 08/01/18 21:00 Room Air 08/01/18 20:00 99.0 78 18 149/70 (96) 95 08/01/18 19:48 77 Intake and Output 08/01/18 08/02/18 18:59 06:59 Intake Total 240 ml 250 ml Balance 240 ml 250 ml Intake Oral 240 ml 250 ml # Voids 3 3 Height (Feet): 5 Height (Inches): 4.00 Weight (Pounds): 176 Objective General Appearance: no apparent distress, alert EENT: PERRL/EOMI Neck: non-tender, supple Cardiovascular: normal rate, regular rhythm Respiratory/Chest: lungs clear, normal breath sounds Abdomen: non tender, soft Extremities: normal range of motion, non-tender Edema: trace edema Neurologic: alert, oriented x 3 Skin: warm/dry Ludwig Silver Aug 02, 2018 17:14
--- NOTE | 2018-08-02 19:19 | NUR ---
HAND-OFF: Report given to VIKI Johnson. Endorsed plan of care.
--- NOTE | 2018-08-02 19:20 | NUR ---
NURSE NOTES: Received patient from VIKI Vidales. Will continue plan of care.
[2018-08-02 20:00] VITALS: BP 118/85
[2018-08-03] VITALS: BP 164/98
[2018-08-03] MEDS: DiphenhydrAMINE 50mg/ml Inj IVP PRN ×8 (00:50→21:53)
[2018-08-03] MEDS: Hydromorphone 0.5mg/0.5ml inj IVP PRN ×8 (00:51→21:55)
--- NOTE | 2018-08-03 01:28 | Cardiology Report ---
APPROVED REPORT EKG Measurement Heart [id number] Sinus bradycardia with occasional premature ventricular complexes and premature atrial complexes Left axis deviation Abnormal ECG
[2018-08-03 04:00] VITALS: BP 148/80
[2018-08-03] MEDS: NovoLOG Insulin Flexpen SUBQ SCH ×4 (06:30→21:00)
--- NOTE | 2018-08-03 07:11 | NUR ---
HAND-OFF: Report given to VIKI Colbert.
--- NOTE | 2018-08-03 07:11 | NUR ---
NURSE NOTES Received patient from VIKI Johnson. Patient VS stable at this time. Patient is alert and oriented but forgetful at times. Patient has a strict pain management schedule. Will follow up. Patient next dose due at 0945. Patient SR at this time on the monitor. Patient is on RA. Patient sitting up in bed at this time. Patient has a diaper per her request at this time. Patient refused insulin overnight. Patient has edema in the bilateral lower extremities. Patient has a right FA 24G PIV that is patent and saline locked at this time. Patient refused 2D echo and chest x-ray and she refused labs this morning. Patient also refused the CRE/VRE swab screening. Patient bed in low position with bed alarm on and call light in reach at this time.
[2018-08-03 08:00] VITALS: BP 139/92
--- NOTE | 2018-08-03 08:10 | NUR ---
NURSE NOTES: Dr Graves ordered PICC line at this time. Patient is a hard stick and is refusing labs. Patient consented to PICC.
[2018-08-03] MEDS ORDERED: Lidocaine 1% Plain 30 ml INJ PRN ×2 (08:15→13:45)
[2018-08-03] MEDS ORDERED: Heparin1,000 units/500ml Premix(Conc:2 units/ml) IV PRN ×2 (08:15→13:45)
--- NOTE | 2018-08-03 08:54 | General Progress Note ---
Assessment/Plan Assessment/Plan (1) Cervical and Lumbar DDD (2) Cervical and Lumbar Spondylosis (3) Cervical and Lumbar Herniated disc (4) Cervical and Lumbar Radiculopathy (5) H/o Cervical and Lumbar fusion (6) Right hip pain and OA Patient will be continued on Dilaudid and Oxycodone D/w Dr. Rodríguez and he concurred. Subjective Date patient seen: Aug 03, 2018 Time patient seen: 08:00 - am Allergies: Coded Allergies: ORANGE (Verified Allergy, Severe, Anaphylaxis, 06/06/18) PENICILLINS (Unverified Allergy, Unknown, 10/05/17) Subjective Constitutional: Reports: weakness HEENT: Reports: no symptoms Cardiovascular: Reports: no symptoms Respiratory: Reports: no symptoms Gastrointestinal/Abdominal: Reports: no symptoms Genitourinary: Reports: no symptoms Neurologic/Psychiatric: Reports: weakness Endocrine: Reports: no symptoms Hematologic/Lymphatic: Reports: no symptoms Subjective Patient is doing well and pain has been tolerated on the Dilaudid and Oxycodone. She has no new complaints at this time. / Objective Last 24 Hour Vital Signs Date Time Temp Pulse Resp B/P (MAP) Pulse Ox O2 Delivery O2 Flow Rate FiO2 08/03/18 04:00 98.5 65 18 148/80 (102) 94 08/03/18 03:31 64 08/03/18 00:00 99.1 96 18 164/98 (120) 100 08/02/18 23:30 87 08/02/18 21:00 Room Air 08/02/18 20:15 130 08/02/18 20:00 99.3 120 18 118/85 (96) 94 08/02/18 16:00 78 08/02/18 16:00 98.8 78 18 127/69 (88) 97 08/02/18 12:00 71 08/02/18 09:15 65 157/70 08/02/18 09:00 Room Air Intake and Output 08/02/18 08/03/18 19:00 07:00 Intake Total 480 ml 100 ml Balance 480 ml 100 ml Intake Oral 480 ml 100 ml # Voids 4 3 Height (Feet): 5 Height (Inches): 4.00 Weight (Pounds): 178 Objective General Appearance: no apparent distress, alert EENT: PERRL/EOMI Neck: non-tender, supple Cardiovascular: normal rate, regular rhythm Respiratory/Chest: lungs clear, normal breath sounds Abdomen: non tender, soft Extremities: normal range of motion, non-tender Edema: trace edema Neurologic: alert, oriented x 3 Skin: warm/dry Ludwig Silver Aug 03, 2018 08:54
[2018-08-03] MEDS: Solu-MEDROL 125mg Inj IV SCH ×2 (09:00→21:54)
[2018-08-03] MEDS: Furosemide 80mg tab ORAL SCH (09:00)
[2018-08-03] MEDS: Theophylline ER 100mg ORAL SCH ×2 (10:09→21:53)
[2018-08-03] MEDS: Doxazosin 1mg Tab ORAL SCH (10:09)
--- NOTE | 2018-08-03 10:45 | NUR ---
RADIOLOGY DEPT CHEST X-RAY DONE.-P.DYE
--- NOTE | 2018-08-03 11:45 | Pulmonology Progress Note ---
Assessment/Plan Problems: (1) ACS (acute coronary syndrome) (2) COPD (chronic obstructive pulmonary disease) (3) Right hip subluxation (4) HTN (hypertension) (5) History of FL (myocardial infarction) (6) CAD (coronary artery disease) (7) Diabetes (8) Anemia (9) Left-sided weakness Assessment/Plan improving slowly check electrolytes decrease steroids to Q12 cxr and bnp in am check sputum continue abx cardiology evaluation Subjective ROS Limited/Unobtainable: No Constitutional: Reports: no symptoms HEENT: Repors: no symptoms Allergies: Coded Allergies: ORANGE (Verified Allergy, Severe, Anaphylaxis, 06/06/18) PENICILLINS (Unverified Allergy, Unknown, 10/05/17) Objective Last 24 Hour Vital Signs Date Time Temp Pulse Resp B/P (MAP) Pulse Ox O2 Delivery O2 Flow Rate FiO2 08/03/18 10:09 83 139/92 08/03/18 04:00 98.5 65 18 148/80 (102) 94 08/03/18 03:31 64 08/03/18 00:00 99.1 96 18 164/98 (120) 100 08/02/18 23:30 87 08/02/18 21:00 Room Air 08/02/18 20:15 130 08/02/18 20:00 99.3 120 18 118/85 (96) 94 08/02/18 16:00 78 08/02/18 16:00 98.8 78 18 127/69 (88) 97 08/02/18 12:00 71 Intake and Output 08/02/18 08/03/18 19:00 07:00 Intake Total 480 ml 100 ml Balance 480 ml 100 ml Intake Oral 480 ml 100 ml # Voids 4 3 General Appearance: WD/WN HEENT: normocephalic, atraumatic Respiratory/Chest: chest wall non-tender, lungs clear Breasts: no masses Cardiovascular: normal peripheral pulses Abdomen: normal bowel sounds, soft, non tender Genitourinary: normal external genitalia Extremities: no clubbing Skin: no rash Microbiology Date/Time Source Procedure Growth Status 07/31/18 16:18 Blood Blood Culture - Preliminary NO GROWTH AFTER 48 HOURS Resulted 07/31/18 16:15 Blood Blood Culture - Preliminary NO GROWTH AFTER 48 HOURS Resulted 08/01/18 22:30 Sputum Gram Stain Pending Resulted 08/01/18 22:30 Sputum Sputum Culture - Preliminary NORMAL UPPER RESPIRATORY NEREYDA AT 24 ... Resulted 08/01/18 00:00 Nasal Nares MRSA Culture - Final Staphylococcus Aureus - Mrsa Complete 07/31/18 15:16 Nasal Nares Influenza Types A,B Antigen (ONDINA) - Final Complete Current Medications Medications (Trade) Dose Ordered Sig/Jael Route PRN Reason Start Time Stop Time Status Last Admin Dose Admin Albuterol/ Ipratropium (Albuterol/ Ipratropium) 3 ml Q4H PRN HHN dyspnea 07/31/18 17:30 08/05/18 17:29 Amlodipine Besylate (Norvasc) 10 mg DAILY ORAL 08/01/18 09:00 08/31/18 08:59 08/03/18 10:09 Aripiprazole (Abilify) 5 mg DAILY ORAL 08/01/18 09:00 08/31/18 08:59 08/03/18 10:09 Baclofen (Lioresal) 10 mg DAILYPRN PRN ORAL For Pain 07/31/18 17:30 08/30/18 17:29 08/01/18 09:22 Chlorhexidine Gluconate (Lucia-Hex 2%) 1 applic DAILY@2000 TOPIC 08/03/18 20:00 09/02/18 19:59 Dextrose (Dextrose 50%) 25 ml Q30M PRN IV Hypoglycemia 07/31/18 17:30 08/30/18 17:29 Dextrose (Dextrose 50%) 50 ml Q30M PRN IV Hypoglycemia 07/31/18 17:30 08/30/18 17:29 Diphenhydramine HCl (Benadryl) 25 mg Q3H PRN IVP Itching 08/01/18 08:00 08/31/18 07:59 08/03/18 10:06 Doxazosin Mesylate (Cardura) 1 mg DAILY ORAL 08/01/18 09:00 08/31/18 08:59 08/03/18 10:09 Furosemide (Lasix) 20 mg BID ORAL 07/31/18 18:00 08/30/18 17:59 08/02/18 17:09 Gabapentin (Neurontin) 900 mg THREE TIMES A DAY ORAL 08/01/18 09:00 08/31/18 08:59 08/03/18 10:07 Heparin Sodium/ Sodium Chloride (Heparin 1000 units/500ml Premix) 1,000 unit ONCE PRN IV PICC PLACEMENT 08/03/18 08:15 08/03/18 23:59 Hydromorphone HCl (Dilaudid) 0.5 mg Q3H PRN IVP Severe Pain (Pain Scale 7-10) 08/01/18 08:00 08/08/18 07:59 08/03/18 10:07 Insulin Aspart (NovoLOG) BEFORE MEALS AND HS SUBQ 08/01/18 06:30 08/31/18 06:29 08/02/18 06:04 Lidocaine HCl (Xylocaine 1% 30ml) 30 ml ONCE PRN INJ PICC PLACEMENT 08/03/18 08:15 08/03/18 23:59 Lorazepam (Ativan 2mg/ml 1ml) 0.5 mg Q4H PRN IV For Anxiety 07/31/18 17:30 08/07/18 17:29 Methylprednisolone Sodium Succinate (Solu-MEDROL) 60 mg EVERY 12 HOURS IV 08/02/18 21:00 08/31/18 01:59 08/02/18 22:05 Nitroglycerin (Ntg) 0.4 mg Q5M X 3 DOSES PRN SL Prn Chest Pain 07/31/18 17:30 08/30/18 17:29 Ondansetron HCl (Zofran) 4 mg Q6H PRN IVP Nausea & Vomiting 07/31/18 17:30 08/30/18 17:29 Oxycodone HCl (Roxicodone) 10 mg Q6H PRN ORAL Moderate Pain (Pain Scale 4-6) 07/31/18 17:30 08/07/18 17:29 Promethazine HCl/ Codeine (Phenergan with Codeine) 5 ml Q6H PRN ORAL cough 07/31/18 17:30 08/30/18 17:29 Quetiapine Fumarate (SEROquel) 50 mg DAILY ORAL 08/01/18 09:00 08/31/18 08:59 08/03/18 10:09 Rivaroxaban (Xarelto) 20 mg QPM ORAL 08/01/18 01:42 08/31/18 01:41 08/02/18 17:10 Temazepam (Restoril) 15 mg HSPRN PRN ORAL Insomnia 07/31/18 17:30 08/07/18 17:29 Theophylline (Андрей-Dur) 100 mg EVERY 12 HOURS ORAL 08/01/18 09:00 08/31/18 08:59 08/03/18 10:09 Leo Mendoza MD Aug 03, 2018 11:45
--- NOTE | 2018-08-03 12:15 | NUR ---
CASE MANAGEMENT:REVIEW 08/03/18 SI: ACS. COPD. RT HIP SUBLUXATION 99.1 96 18 164/98 100% ON RA IS: IV SOLUMEDROL Q12 NORVASC PO QD CARDURA PO QD NEURONTIN PO TID XARELTO PO QPM LASIX PO BID BACLOFEN PO QD PRN : TELEMETRY ~ TRANSFER TO MED/SURG
--- NOTE | 2018-08-03 12:21 | Diagnostic Imaging Report ---
Indication: Cough Technique: One view of the chest Comparison: 07/31/2018 Findings: Interim development of atelectasis at the left lung base. The lungs and pleural spaces are otherwise clear. The heart is borderline enlarged. Surgical hardware is seen in the cervical spine Impression: Left basilar atelectasis. No acute process otherwise Borderline cardiomegaly
--- NOTE | 2018-08-03 12:30 | NUR ---
NURSE NOTES: Patient had an episode of confusion. She stated that she wanted to go outside for a cigarette and became agitated when she was told that should could not have one. She then proceeded to scoot her chair down the hallway while yelling at anyone who tried to ask her to go back to her room. Security was called. The situation was deescalated successfully.
--- NOTE | 2018-08-03 12:45 | NUR ---
NURSE NOTES: VIKI Baker from ICU attempted to insert an IV on this patient but she was unable to obtain one. Patient has an order for PICC line at this time. Awaiting PICC placement.
--- NOTE | 2018-08-03 13:30 | NUR ---
HAND-OFF: Report given to Myron DREW. Patient VS stable at this time. Patient compliant and happy at this time. Patient still needs PICC line. Endorsed to follow up.
--- NOTE | 2018-08-03 13:34 | NUR ---
NURSE NOTES: Patient transfered from Tele, received report from VIKI Colbert. patient alert, verbally responsive. no c/o pain. bed in the lowest position. call light within reach. will continue to monitor.
[2018-08-03] MEDS ORDERED: Nitroglycerin Subl 0.4mg tab SL PRN (13:45)
[2018-08-03] MEDS ORDERED: Promethazine/Codeine 5ml UD ORAL PRN (14:00)
[2018-08-03] MEDS ORDERED: LORazepam Inj 2mg/ml 1ml IV PRN (14:00)
[2018-08-03] MEDS ORDERED: Albuterol/Ipratropium 3ml neb HHN PRN (14:00)
[2018-08-03] MEDS ORDERED: oxyCODONE 5mg IR tab ORAL PRN (14:00)
--- NOTE | 2018-08-03 14:06 | NUR ---
NURSE NOTES: patient left unit for PICC line insertion with fair condition.
--- NOTE | 2018-08-03 15:06 | General Progress Note ---
Assessment/Plan Problem List: (1) COPD (chronic obstructive pulmonary disease) ICD Codes: J44.9 - Chronic obstructive pulmonary disease, unspecified SNOMED: 94071939 (2) Avascular necrosis of bone of right hip ICD Codes: M87.051 - Idiopathic aseptic necrosis of right femur SNOMED: 476534463 (3) Chronic congestive heart failure ICD Codes: I50.9 - Heart failure, unspecified SNOMED: 57100078 (4) Chronic pain ICD Codes: G89.29 - Other chronic pain SNOMED: 60970836 (5) Anemia ICD Codes: D64.9 - Anemia, unspecified SNOMED: 393361492 (6) HTN (hypertension) ICD Codes: I10 - Essential (primary) hypertension SNOMED: 79787455 (7) Diabetes ICD Codes: E11.9 - Type 2 diabetes mellitus without complications SNOMED: 81042410 Status: unchanged Assessment/Plan o2 pulm tx pt diet pain control cbc bmp am Subjective Constitutional: Reports: weakness Allergies: Coded Allergies: ORANGE (Verified Allergy, Severe, Anaphylaxis, 06/06/18) PENICILLINS (Unverified Allergy, Unknown, 10/05/17) All Systems: reviewed and negative except above Subjective sl back pain Objective Last 24 Hour Vital Signs Date Time Temp Pulse Resp B/P (MAP) Pulse Ox O2 Delivery O2 Flow Rate FiO2 08/03/18 10:09 83 139/92 08/03/18 04:00 98.5 65 18 148/80 (102) 94 08/03/18 03:31 64 08/03/18 00:00 99.1 96 18 164/98 (120) 100 08/02/18 23:30 87 08/02/18 21:00 Room Air 08/02/18 20:15 130 08/02/18 20:00 99.3 120 18 118/85 (96) 94 08/02/18 16:00 78 08/02/18 16:00 98.8 78 18 127/69 (88) 97 Intake and Output 08/02/18 08/03/18 19:00 07:00 Intake Total 480 ml 100 ml Balance 480 ml 100 ml Intake Oral 480 ml 100 ml # Voids 4 3 Height (Feet): 5 Height (Inches): 4.00 Weight (Pounds): 178 General Appearance: lethargic EENT: normal ENT inspection Neck: normal alignment Cardiovascular: normal peripheral pulses, normal rate, regular rhythm Respiratory/Chest: chest wall non-tender, lungs clear, normal breath sounds Abdomen: normal bowel sounds, non tender, soft Extremities: normal inspection Edema: no edema noted Arm (L), no edema noted Arm (R), no edema noted Leg (L), no edema noted Leg (R), no edema noted Pedal (L), no edema noted Pedal (R), no edema noted Generalized Neurologic: motor weakness Skin: normal pigmentation, warm/dry Reymundo Graves DO Aug 03, 2018 15:06
--- NOTE | 2018-08-03 15:38 | Diagnostic Imaging Report ---
Indications: Needs long-term IV access Technique: Ultrasound confirms patent compressible left basilic vein. Total sterile technique, including sterile probe cover and sterile gel, hat, mask, sterile gown, large sterile drape, and preparation with 2% chlorhexidine utilized. Local anesthesia with 1% lidocaine. Under real-time ultrasound guidance, puncture basilic vein using 21-gauge needle, documented and archived, passage 0.018 guidewire under direct fluoroscopy, which would not pass centrally. A 4 [place] introducer sheath was placed over the guidewire. A Kumpe catheter was inserted, used to inject a small amount of contrast into the left axillary vein and a limited left axillary venogram was performed. This confirmed patency although small caliber of the axillary vein. With some difficulty, guidewire was manipulated into the superior vena cava. 4 [place] Bard dual-lumen power PICC cut to cm. It was inserted through the peel-away sheath. There is some manipulation was required to advance it into the superior vena cava. Peel-away sheath and guidewire removed. Catheter fixed to the skin. Both catheter ports aspirated and flushed. Patient tolerated procedure well, without immediate complication. Digital radiograph documents satisfactory catheter tip position, at the cavoatrial junction. Total fluoroscopy time 208.5 sec. Total dose area product 0.84408 mGym2 Total number of images: 2 Impression: Successful placement of left arm PICC under sonographic and fluoroscopic guidance, as described above.
[2018-08-03 16:00] VITALS: BP 124/80
--- NOTE | 2018-08-03 16:34 | NUR ---
[employer] FAXED TO PLEASE FAX THE REVIEW/CLINICAL P- [phone] f- [phone]
[2018-08-03] MEDS: Xarelto 10mg tab ORAL SCH (16:39)
--- NOTE | 2018-08-03 19:51 | NUR ---
HAND-OFF: Report given to VIKI Matthews.
[2018-08-03 20:00] VITALS: BP 151/92
[2018-08-03] MEDS ORDERED: Dyna-Hex 2% Top Sol 2oz TOPIC SCH (20:00)
--- NOTE | 2018-08-03 21:55 | NUR ---
NURSE NOTES: Pt is in bed, awake and alert. No acute distress noted. Pt is able to move around in hallway in a wheelchair. Pt gets really upset and agitated, requesting pain medication before due time. Pain medication given as ordered PRN. PICC line is patent and asymptomatic; both lumen flushed. Bed low in position,side rails up and call light within reach. Pt is instructed to call before getting out of bed.
[2018-08-03] MEDS: Dyna-Hex 2% Top Sol 2oz TOPIC SCH (22:03)
[2018-08-04] VITALS: BP 145/88
[2018-08-04] MEDS: DiphenhydrAMINE 50mg/ml Inj IVP PRN ×8 (00:54→22:03)
[2018-08-04] MEDS: Hydromorphone 0.5mg/0.5ml inj IVP PRN ×8 (00:55→22:03)
--- NOTE | 2018-08-04 01:00 | NUR ---
NURSE NOTES: Pt is in bed, awake . No acute distress noted.
[2018-08-04 04:00] VITALS: BP 138/86
--- NOTE | 2018-08-04 05:00 | NUR ---
NURSE NOTES: Blood drawn from PICC line and given to dye operator for bmp and cbc
[2018-08-04] MEDS: NovoLOG Insulin Flexpen SUBQ SCH ×4 (06:57→21:00)
--- NOTE | 2018-08-04 07:15 | NUR ---
HAND-OFF: Report given to VIKI Sanches.Informed that pt is Fall Risk.
--- NOTE | 2018-08-04 07:22 | NUR ---
NURSE NOTES: received report from VIKI Matthews. patient sitting in w/c, alert, verbally responsive. no respiratory distress noted. no c/o pain at this time. call light in place. bed in the lowest position. will continue to monitor.
[2018-08-04 07:49] LABS: HEMATOCRIT 38.5 % (37.0-47.0); HEMOGLOBIN 11.8 G/DL (12.0-16.0); MEAN CORPUSCULAR VOLUME 73 FL (80-99); PLATELET COUNT 289 K/UL (150-450); RED BLOOD COUNT 5.25 M/UL (4.20-5.40); RED CELL DISTRIBUTION WIDTH 17.6 % (11.6-14.8); WHITE BLOOD COUNT 7.4 K/UL (4.8-10.8)
[2018-08-04 07:54] LABS: ANION GAP 10 mmol/L (5-15); BLOOD UREA NITROGEN 21 mg/dL (7-18); CALCIUM 8.7 MG/DL (8.5-10.1); CARBON DIOXIDE 26 MMOL/L (21-32); CHLORIDE 104 MMOL/L (98-107); CREATININE 0.8 MG/DL (0.55-1.30); POTASSIUM 2.8 MMOL/L (3.5-5.1); SODIUM 140 MMOL/L (136-145)
[2018-08-04 08:00] VITALS: BP 147/93
[2018-08-04] MEDS: Solu-MEDROL 125mg Inj IV SCH ×2 (09:52→22:04)
[2018-08-04] MEDS: Theophylline ER 100mg ORAL SCH ×2 (09:52→22:04)
[2018-08-04] MEDS: Doxazosin 1mg Tab ORAL SCH (09:52)
[2018-08-04 12:00] VITALS: BP 145/91
--- NOTE | 2018-08-04 13:40 | General Progress Note ---
Assessment/Plan Problem List: (1) COPD (chronic obstructive pulmonary disease) ICD Codes: J44.9 - Chronic obstructive pulmonary disease, unspecified SNOMED: 21866246 (2) Avascular necrosis of bone of right hip ICD Codes: M87.051 - Idiopathic aseptic necrosis of right femur SNOMED: 298115923 (3) Chronic congestive heart failure ICD Codes: I50.9 - Heart failure, unspecified SNOMED: 02031711 (4) Chronic pain ICD Codes: G89.29 - Other chronic pain SNOMED: 30794692 (5) Anemia ICD Codes: D64.9 - Anemia, unspecified SNOMED: 605120505 (6) HTN (hypertension) ICD Codes: I10 - Essential (primary) hypertension SNOMED: 23905326 (7) Diabetes ICD Codes: E11.9 - Type 2 diabetes mellitus without complications SNOMED: 15423503 Status: stable, progressing Assessment/Plan o2 pulm tx pt diet pain control cbc bmp am dc w hh if clear Subjective Constitutional: Reports: weakness Allergies: Coded Allergies: ORANGE (Verified Allergy, Severe, Anaphylaxis, 06/06/18) PENICILLINS (Unverified Allergy, Unknown, 10/05/17) All Systems: reviewed and negative except above Subjective sl back pain Objective Last 24 Hour Vital Signs Date Time Temp Pulse Resp B/P (MAP) Pulse Ox O2 Delivery O2 Flow Rate FiO2 08/04/18 09:51 96 147/93 08/04/18 09:30 78 18 Room Air 21 08/04/18 09:00 Room Air 08/04/18 08:00 98.3 96 19 147/93 (111) 96 08/04/18 04:00 98.3 80 18 138/86 (103) 98 08/04/18 00:00 98.1 76 18 145/88 (107) 98 08/03/18 21:00 Room Air 08/03/18 20:00 97.9 75 18 151/92 (111) 99 08/03/18 19:30 103 18 Room Air 21 08/03/18 16:00 98.0 103 18 124/80 (95) 94 Intake and Output 08/03/18 08/04/18 19:00 07:00 Intake Total 160 ml 500 ml Balance 160 ml 500 ml Intake Oral 160 ml 500 ml # Voids 1 2 Laboratory Tests 08/04/18 05:15: White Blood Count 7.4, Red Blood Count 5.25, Hemoglobin 11.8L, Hematocrit 38.5, Mean Corpuscular Volume 73L, Mean Corpuscular Hemoglobin 22.5L, Mean Corpuscular Hemoglobin Concent 30.6L, Red Cell Distribution Width 17.6H, Platelet Count 289, Mean Platelet Volume 8.1, Neutrophils (%) (Auto) , Lymphocytes (%) (Auto) , Monocytes (%) (Auto) , Eosinophils (%) (Auto) , Basophils (%) (Auto) , Differential Total Cells Counted 100, Neutrophils % ( Manual) 83H, Lymphocytes % (Manual) 16L, Monocytes % (Manual) 1, Eosinophils % ( Manual) 0, Basophils % (Manual) 0, Band Neutrophils 0, Platelet Estimate Adequate, Platelet Morphology Normal, Hypochromasia 1+, Anisocytosis 1+, Microcytosis 1+, Sodium Level 140, Potassium Level 2.8L, Chloride Level 104, Carbon Dioxide Level 26, Anion Gap 10, Blood Urea Nitrogen 21H, Creatinine 0.8, Estimat Glomerular Filtration Rate > 60, Glucose Level 139H, Calcium Level 8.7 Height (Feet): 5 Height (Inches): 4.00 Weight (Pounds): 177 General Appearance: alert EENT: normal ENT inspection Neck: normal alignment Cardiovascular: normal peripheral pulses, normal rate, regular rhythm Respiratory/Chest: chest wall non-tender, lungs clear, normal breath sounds Abdomen: normal bowel sounds, non tender, soft Extremities: normal inspection Edema: no edema noted Arm (L), no edema noted Arm (R), no edema noted Leg (L), no edema noted Leg (R), no edema noted Pedal (L), no edema noted Pedal (R), no edema noted Generalized Neurologic: responsive, motor weakness Skin: normal pigmentation, warm/dry Reymundo Graves DO Aug 04, 2018 13:40
--- NOTE | 2018-08-04 13:45 | NUR ---
RD ASSESSMENT & RECOMMENDATIONS SEE CARE ACTIVITY FOR COMPLETE ASSESSMENT DAILY ESTIMATED NEEDS: Needs based on Cardiac, DM, 61kg adj 25-30 kcals/kg 1031-9954 total kcals 1-1.5 g protein/kg 61-92 g total protein 20-22 mL/kg 2530-7150 total fluid mLs NUTRITION DIAGNOSIS: 1) Decreased sodium needs r/t cardiac history as evidenced by CHF dx, on diuretics, h/o CVA, h/o MD. 2) Altered nutrition related lab values r/t diabetes as evidenced by A1C 8.1, elev POC glu (104-162) CURRENT DIET:[facility] MED PO DIET RECOMMENDATIONS: [facility] MED / LOW NA ADDITIONAL RECOMMENDATIONS: 1) Obtain a calibrated bed scale wt for accurate CBW 2) Monitor BGs closely- h/o DM, on solumedrol 3) Monitor lytes closely w/ lasix, replete as needed
--- NOTE | 2018-08-04 14:20 | NUR ---
[employer] SI:ACS. COPD. RT HIP SUBLUXATION VS: BP 1445/91, P 96, T 98.0, RR 19, SpO2 96 pO2 65.6, K 2.8, BUN 21, GLUCOSE 139, IS: IV SOLUMEDROL Q12 NORVASC PO QD CARDURA PO QD NEURONTIN PO TID XARELTO PO QPM LASIX PO BID BACLOFEN PO QD PRN MED/SURG STATUS
--- NOTE | 2018-08-04 15:13 | Pulmonology Progress Note ---
Assessment/Plan Problems: (1) ACS (acute coronary syndrome) (2) COPD (chronic obstructive pulmonary disease) (3) Right hip subluxation (4) HTN (hypertension) (5) History of MO (myocardial infarction) (6) CAD (coronary artery disease) (7) Diabetes (8) Anemia (9) Left-sided weakness Assessment/Plan improving slowly check electrolytes decrease steroids to Q12 cxr and bnp in am check sputum continue abx cardiology evaluation wants her right hip to get fixed Subjective ROS Limited/Unobtainable: No Constitutional: Reports: no symptoms HEENT: Repors: no symptoms Respiratory: Reports: no symptoms Allergies: Coded Allergies: ORANGE (Verified Allergy, Severe, Anaphylaxis, 06/06/18) PENICILLINS (Unverified Allergy, Unknown, 10/05/17) Objective Last 24 Hour Vital Signs Date Time Temp Pulse Resp B/P (MAP) Pulse Ox O2 Delivery O2 Flow Rate FiO2 08/04/18 12:00 98.0 93 19 145/91 (109) 96 08/04/18 09:51 96 147/93 08/04/18 09:30 78 18 Room Air 21 08/04/18 09:00 Room Air 08/04/18 08:00 98.3 96 19 147/93 (111) 96 08/04/18 04:00 98.3 80 18 138/86 (103) 98 08/04/18 00:00 98.1 76 18 145/88 (107) 98 08/03/18 21:00 Room Air 08/03/18 20:00 97.9 75 18 151/92 (111) 99 08/03/18 19:30 103 18 Room Air 21 08/03/18 16:00 98.0 103 18 124/80 (95) 94 Intake and Output 08/03/18 08/04/18 19:00 07:00 Intake Total 160 ml 500 ml Balance 160 ml 500 ml Intake Oral 160 ml 500 ml # Voids 1 2 General Appearance: WD/WN HEENT: normocephalic, atraumatic Respiratory/Chest: chest wall non-tender, lungs clear Breasts: no masses Cardiovascular: normal rate Abdomen: normal bowel sounds Genitourinary: normal external genitalia Extremities: no clubbing Skin: no rash Microbiology Date/Time Source Procedure Growth Status 08/01/18 22:30 Sputum Gram Stain - Final Complete 08/01/18 22:30 Sputum Sputum Culture - Final NORMAL UPPER RESPIRATORY NEREYDA PRESENT Complete Laboratory Tests 08/04/18 05:15: White Blood Count 7.4, Red Blood Count 5.25, Hemoglobin 11.8L, Hematocrit 38.5, Mean Corpuscular Volume 73L, Mean Corpuscular Hemoglobin 22.5L, Mean Corpuscular Hemoglobin Concent 30.6L, Red Cell Distribution Width 17.6H, Platelet Count 289, Mean Platelet Volume 8.1, Neutrophils (%) (Auto) , Lymphocytes (%) (Auto) , Monocytes (%) (Auto) , Eosinophils (%) (Auto) , Basophils (%) (Auto) , Differential Total Cells Counted 100, Neutrophils % ( Manual) 83H, Lymphocytes % (Manual) 16L, Monocytes % (Manual) 1, Eosinophils % ( Manual) 0, Basophils % (Manual) 0, Band Neutrophils 0, Platelet Estimate Adequate, Platelet Morphology Normal, Hypochromasia 1+, Anisocytosis 1+, Microcytosis 1+, Sodium Level 140, Potassium Level 2.8L, Chloride Level 104, Carbon Dioxide Level 26, Anion Gap 10, Blood Urea Nitrogen 21H, Creatinine 0.8, Estimat Glomerular Filtration Rate > 60, Glucose Level 139H, Calcium Level 8.7 Current Medications Medications (Trade) Dose Ordered Sig/Jael Route PRN Reason Start Time Stop Time Status Last Admin Dose Admin Albuterol/ Ipratropium (Albuterol/ Ipratropium) 3 ml Q4H PRN HHN dyspnea 08/03/18 14:00 08/05/18 13:59 Amlodipine Besylate (Norvasc) 10 mg DAILY ORAL 08/04/18 09:00 08/31/18 08:59 08/04/18 09:51 Aripiprazole (Abilify) 5 mg DAILY ORAL 08/04/18 09:00 08/31/18 08:59 08/04/18 09:51 Baclofen (Lioresal) 10 mg DAILYPRN PRN ORAL MUSCLE SPASMS 08/03/18 17:30 08/30/18 17:29 Chlorhexidine Gluconate (Lucia-Hex 2%) 1 applic DAILY@2000 TOPIC 08/03/18 20:00 09/02/18 19:59 08/03/18 22:03 Dextrose (Dextrose 50%) 25 ml Q30M PRN IV Hypoglycemia 08/03/18 14:00 08/30/18 17:29 Dextrose (Dextrose 50%) 50 ml Q30M PRN IV Hypoglycemia 08/03/18 14:00 08/30/18 17:29 Diphenhydramine HCl (Benadryl) 25 mg Q3H PRN IVP Itching 08/03/18 14:00 08/31/18 07:59 08/04/18 13:01 Doxazosin Mesylate (Cardura) 1 mg DAILY ORAL 08/04/18 09:00 08/31/18 08:59 08/04/18 09:52 Furosemide (Lasix) 20 mg Q12HR ORAL 08/03/18 21:00 09/02/18 20:59 Gabapentin (Neurontin) 900 mg THREE TIMES A DAY ORAL 08/03/18 18:00 08/31/18 08:59 08/04/18 13:01 Hydromorphone HCl (Dilaudid) 0.5 mg Q3H PRN IVP Severe Pain (Pain Scale 7-10) 08/03/18 14:00 08/08/18 07:59 08/04/18 13:02 Insulin Aspart (NovoLOG) BEFORE MEALS AND HS SUBQ 08/03/18 16:30 08/31/18 06:29 08/04/18 06:57 Lorazepam (Ativan 2mg/ml 1ml) 0.5 mg Q4H PRN IV For Anxiety 08/03/18 14:00 08/07/18 13:59 Methylprednisolone Sodium Succinate (Solu-MEDROL) 60 mg EVERY 12 HOURS IV 08/03/18 21:00 08/31/18 01:59 08/04/18 09:52 Nitroglycerin (Ntg) 0.4 mg Q5M X 3 DOSES PRN SL Prn Chest Pain 08/03/18 13:45 08/30/18 17:29 Ondansetron HCl (Zofran) 4 mg Q6H PRN IVP Nausea & Vomiting 08/03/18 14:00 08/30/18 13:59 Oxycodone HCl (Roxicodone) 10 mg Q6H PRN ORAL Moderate Pain (Pain Scale 4-6) 08/03/18 14:00 08/07/18 13:59 Promethazine HCl/ Codeine (Phenergan with Codeine) 5 ml Q6H PRN ORAL cough 08/03/18 14:00 08/30/18 13:59 Quetiapine Fumarate (SEROquel) 50 mg DAILY ORAL 08/04/18 09:00 08/31/18 08:59 08/04/18 09:51 Rivaroxaban (Xarelto) 20 mg QPM ORAL 08/03/18 16:30 08/31/18 01:41 08/03/18 16:39 Temazepam (Restoril) 15 mg HSPRN PRN ORAL Insomnia 08/03/18 21:00 08/07/18 20:59 08/04/18 00:54 Theophylline (Андрей-Dur) 100 mg EVERY 12 HOURS ORAL 08/03/18 21:00 08/31/18 08:59 08/04/18 09:52 Leo Mendoza MD Aug 04, 2018 15:13
--- NOTE | 2018-08-04 15:32 | NUR ---
*-* DISCHARGE PLANNING *-* PATIENT HAS BEEN REFERRED TO: [facility] [email or web address] [phone] Work [phone] Work Work Fax
[2018-08-04 16:00] VITALS: BP 156/92
[2018-08-04] MEDS: Xarelto 10mg tab ORAL SCH (16:03)
--- NOTE | 2018-08-04 17:44 | General Progress Note ---
Assessment/Plan Assessment/Plan (1) Cervical and Lumbar DDD (2) Cervical and Lumbar Spondylosis (3) Cervical and Lumbar Herniated disc (4) Cervical and Lumbar Radiculopathy (5) H/o Cervical and Lumbar fusion (6) Right hip pain and OA Patient will be continued on Dilaudid and Oxycodone D/w Dr. Rodríguez and he concurred. Subjective Date patient seen: Aug 04, 2018 Time patient seen: 04:15 - pm Allergies: Coded Allergies: ORANGE (Verified Allergy, Severe, Anaphylaxis, 06/06/18) PENICILLINS (Unverified Allergy, Unknown, 10/05/17) Subjective Constitutional: Reports: weakness HEENT: Reports: no symptoms Cardiovascular: Reports: no symptoms Respiratory: Reports: no symptoms Gastrointestinal/Abdominal: Reports: no symptoms Genitourinary: Reports: no symptoms Neurologic/Psychiatric: Reports: weakness Endocrine: Reports: no symptoms Hematologic/Lymphatic: Reports: no symptoms Subjective Patient has been doing well and is sitting up in wheelchair. She is tolerating the pain on the Dilaudid and Oxycodone. No new complaints at this time. Objective Last 24 Hour Vital Signs Date Time Temp Pulse Resp B/P (MAP) Pulse Ox O2 Delivery O2 Flow Rate FiO2 08/04/18 16:00 97.9 87 19 156/92 (113) 96 08/04/18 12:00 98.0 93 19 145/91 (109) 96 08/04/18 09:51 96 147/93 08/04/18 09:30 78 18 Room Air 21 08/04/18 09:00 Room Air 08/04/18 08:00 98.3 96 19 147/93 (111) 96 08/04/18 04:00 98.3 80 18 138/86 (103) 98 08/04/18 00:00 98.1 76 18 145/88 (107) 98 08/03/18 21:00 Room Air 08/03/18 20:00 97.9 75 18 151/92 (111) 99 08/03/18 19:30 103 18 Room Air 21 Intake and Output 08/03/18 08/04/18 18:59 06:59 Intake Total 160 ml 500 ml Balance 160 ml 500 ml Intake Oral 160 ml 500 ml # Voids 1 2 Laboratory Tests 08/04/18 05:15: White Blood Count 7.4, Red Blood Count 5.25, Hemoglobin 11.8L, Hematocrit 38.5, Mean Corpuscular Volume 73L, Mean Corpuscular Hemoglobin 22.5L, Mean Corpuscular Hemoglobin Concent 30.6L, Red Cell Distribution Width 17.6H, Platelet Count 289, Mean Platelet Volume 8.1, Neutrophils (%) (Auto) , Lymphocytes (%) (Auto) , Monocytes (%) (Auto) , Eosinophils (%) (Auto) , Basophils (%) (Auto) , Differential Total Cells Counted 100, Neutrophils % ( Manual) 83H, Lymphocytes % (Manual) 16L, Monocytes % (Manual) 1, Eosinophils % ( Manual) 0, Basophils % (Manual) 0, Band Neutrophils 0, Platelet Estimate Adequate, Platelet Morphology Normal, Hypochromasia 1+, Anisocytosis 1+, Microcytosis 1+, Sodium Level 140, Potassium Level 2.8L, Chloride Level 104, Carbon Dioxide Level 26, Anion Gap 10, Blood Urea Nitrogen 21H, Creatinine 0.8, Estimat Glomerular Filtration Rate > 60, Glucose Level 139H, Calcium Level 8.7 Height (Feet): 5 Height (Inches): 4.00 Weight (Pounds): 177 Objective General Appearance: no apparent distress, alert EENT: PERRL/EOMI Neck: non-tender, supple Cardiovascular: normal rate, regular rhythm Respiratory/Chest: lungs clear, normal breath sounds Abdomen: non tender, soft Extremities: normal range of motion, non-tender Edema: trace edema Neurologic: alert, oriented x 3 Skin: warm/dry Ludwig Silver Aug 04, 2018 17:44
--- NOTE | 2018-08-04 19:30 | NUR ---
NURSE NOTES: Patient on wheelchair roaming around the unit. Alert and oriented x4, not in acute respiratory distress. Instructed the use of call light. Call light and needs in reach. Bed in lowest position, lock engaged and alarm on. Will continue to monitor.
--- NOTE | 2018-08-04 19:32 | NUR ---
HAND-OFF: Report given to VIKI Valentine.
[2018-08-04 20:00] VITALS: BP 129/87
[2018-08-04] MEDS: Dyna-Hex 2% Top Sol 2oz TOPIC SCH (22:03)
[2018-08-05 00:50] VITALS: BP 153/86
[2018-08-05] MEDS: Hydromorphone 0.5mg/0.5ml inj IVP PRN ×8 (00:59→22:01)
[2018-08-05] MEDS: DiphenhydrAMINE 50mg/ml Inj IVP PRN ×8 (00:59→22:01)
[2018-08-05 04:00] VITALS: BP 156/88
[2018-08-05] MEDS: NovoLOG Insulin Flexpen SUBQ SCH ×4 (06:30→20:29)
[2018-08-05 07:09] LABS: HEMATOCRIT 36.2 % (37.0-47.0); HEMOGLOBIN 11.3 G/DL (12.0-16.0); MEAN CORPUSCULAR VOLUME 72 FL (80-99); PLATELET COUNT 233 K/UL (150-450); RED BLOOD COUNT 5.02 M/UL (4.20-5.40); RED CELL DISTRIBUTION WIDTH 17.3 % (11.6-14.8)
--- NOTE | 2018-08-05 07:20 | NUR ---
HAND-OFF: Report given to VIKI Gonzalez.
--- NOTE | 2018-08-05 07:37 | NUR ---
NURSE NOTES: Report received from VIKI Tristan. Pt in bed, awake, talkative, no complaints of pain, discussed plan of care with pt and medication schedule. Pt stating she does not have all of her belongings. Checked chart, appears pt was transferred from Telemetry, will call 2nd floor to look for clothes, bed in lowest position, call light within reach
[2018-08-05 07:45] LABS: ALANINE AMINOTRANSFERASE 28 U/L (12-78); ALBUMIN 3.4 G/DL (3.4-5.0); ALBUMIN/GLOBULIN RATIO 0.9 (1.0-2.7); ALKALINE PHOSPHATASE 51 U/L (46-116); ANION GAP 9 mmol/L (5-15); ASPARTATE AMINO TRANSFERASE 14 U/L (15-37); BILIRUBIN,TOTAL 0.4 MG/DL (0.2-1.0); BLOOD UREA NITROGEN 21 mg/dL (7-18); CALCIUM 8.9 MG/DL (8.5-10.1); CARBON DIOXIDE 25 MMOL/L (21-32); CHLORIDE 107 MMOL/L (98-107); CREATININE 0.8 MG/DL (0.55-1.30); SODIUM 141 MMOL/L (136-145)
--- NOTE | 2018-08-05 09:29 | General Progress Note ---
Assessment/Plan Assessment/Plan (1) Cervical and Lumbar DDD (2) Cervical and Lumbar Spondylosis (3) Cervical and Lumbar Herniated disc (4) Cervical and Lumbar Radiculopathy (5) H/o Cervical and Lumbar fusion (6) Right hip pain and OA Patient will be continued on Dilaudid and Oxycodone D/w Dr. Rodríguez and he concurred. Subjective Date patient seen: Aug 05, 2018 Time patient seen: 08:30 - am Allergies: Coded Allergies: ORANGE (Verified Allergy, Severe, Anaphylaxis, 06/06/18) PENICILLINS (Unverified Allergy, Unknown, 10/05/17) Subjective Constitutional: Reports: weakness HEENT: Reports: no symptoms Cardiovascular: Reports: no symptoms Respiratory: Reports: no symptoms Gastrointestinal/Abdominal: Reports: no symptoms Genitourinary: Reports: no symptoms Neurologic/Psychiatric: Reports: weakness Endocrine: Reports: no symptoms Hematologic/Lymphatic: Reports: no symptoms Subjective Patient has been showing no signs of pain or distress. Using the Dilaudid and Oxycodone. Objective Last 24 Hour Vital Signs Date Time Temp Pulse Resp B/P (MAP) Pulse Ox O2 Delivery O2 Flow Rate FiO2 08/05/18 04:00 98.3 78 18 156/88 (110) 100 08/05/18 01:29 97.7 08/05/18 00:50 97.7 81 20 153/86 (108) 98 08/04/18 21:00 Room Air 08/04/18 20:00 97.9 87 18 129/87 (101) 100 08/04/18 16:00 97.9 87 19 156/92 (113) 96 08/04/18 12:00 98.0 93 19 145/91 (109) 96 08/04/18 09:51 96 147/93 08/04/18 09:30 78 18 Room Air 21 Intake and Output 08/04/18 08/05/18 19:00 07:00 Intake Total 320 ml 600 ml Balance 320 ml 600 ml Intake Oral 320 ml 600 ml # Voids 3 4 Laboratory Tests 08/05/18 06:35: White Blood Count 8.0, Red Blood Count 5.02, Hemoglobin 11.3L, Hematocrit 36.2L , Mean Corpuscular Volume 72L, Mean Corpuscular Hemoglobin 22.6L, Mean Corpuscular Hemoglobin Concent 31.3L, Red Cell Distribution Width 17.3H, Platelet Count 233, Mean Platelet Volume 7.2, Neutrophils (%) (Auto) , Lymphocytes (%) (Auto) , Monocytes (%) (Auto) , Eosinophils (%) (Auto) , Basophils (%) (Auto) , Neutrophils % (Manual) [Pending], Lymphocytes % (Manual) [Pending], Platelet Estimate [Pending], Platelet Morphology [Pending], Sodium Level 141, Potassium Level 3.0L, Chloride Level 107, Carbon Dioxide Level 25, Anion Gap 9, Blood Urea Nitrogen 21H, Creatinine 0.8, Estimat Glomerular Filtration Rate > 60, Glucose Level 135H, Calcium Level 8.9, Total Bilirubin 0.4 , Aspartate Amino Transf (AST/SGOT) 14L, Alanine Aminotransferase (ALT/SGPT) 28 , Alkaline Phosphatase 51, Pro-B-Type Natriuretic Peptide 156H, Total Protein 7.0, Albumin 3.4, Globulin 3.6, Albumin/Globulin Ratio 0.9L Height (Feet): 5 Height (Inches): 4.00 Weight (Pounds): 176 Objective General Appearance: no apparent distress, alert EENT: PERRL/EOMI Neck: non-tender, supple Cardiovascular: normal rate, regular rhythm Respiratory/Chest: lungs clear, normal breath sounds Abdomen: non tender, soft Extremities: normal range of motion, non-tender Edema: trace edema Neurologic: alert, oriented x 3 Skin: warm/dry Ludwig Silver Aug 05, 2018 09:29
--- NOTE | 2018-08-05 09:35 | NUR ---
NURSE NOTES: Report received from Radha DREW. Pt in bed, awake, talkative, on a wheelchair. appears to be compulsived. bed in lowest position, call light within reach. siderails are up x3. will cont to monitor.
[2018-08-05] MEDS: Solu-MEDROL 125mg Inj IV SCH ×2 (10:01→20:27)
[2018-08-05 10:22] VITALS: BP 154/88
[2018-08-05] MEDS: Doxazosin 1mg Tab ORAL SCH (10:24)
[2018-08-05] MEDS: Theophylline ER 100mg ORAL SCH ×2 (10:25→20:27)
--- NOTE | 2018-08-05 11:21 | NUR ---
NURSE NOTES: K+3.[address] CARVER MADE AWARE OF THE RESULT. AWAITS FOR THE CALL BACK. WILL CONT THE PLAN OF CARE. Addendum: 08/05/18 at 1128 by THO DEE LVN MIYA ORDER OBTAINED
--- NOTE | 2018-08-05 12:15 | NUR ---
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
[2018-08-05 12:50] VITALS: BP 138/75
[2018-08-05] MEDS ORDERED: FUROSEMIDE20 M1 ORAL (13:07)
--- NOTE | 2018-08-05 13:09 | Pulmonology Progress Note ---
Assessment/Plan Problems: (1) ACS (acute coronary syndrome) (2) COPD (chronic obstructive pulmonary disease) (3) Right hip subluxation (4) HTN (hypertension) (5) History of NV (myocardial infarction) (6) CAD (coronary artery disease) (7) Diabetes (8) Anemia (9) Left-sided weakness Assessment/Plan improving slowly check electrolytes decrease steroids to Q12 cxr and bnp in am check sputum continue abx cardiology evaluation wants her right hip to get fixed dc home All medications and treatment were reviewed.recon done, prescription written Subjective ROS Limited/Unobtainable: No Constitutional: Reports: no symptoms HEENT: Repors: no symptoms Allergies: Coded Allergies: ORANGE (Verified Allergy, Severe, Anaphylaxis, 06/06/18) PENICILLINS (Unverified Allergy, Unknown, 10/05/17) Objective Last 24 Hour Vital Signs Date Time Temp Pulse Resp B/P (MAP) Pulse Ox O2 Delivery O2 Flow Rate FiO2 08/05/18 12:50 97.8 87 21 138/75 (96) 97 08/05/18 10:25 87 154/88 08/05/18 10:22 98.6 87 21 154/88 (110) 98 08/05/18 07:00 98 22 Room Air 21 08/05/18 04:00 98.3 78 18 156/88 (110) 100 08/05/18 01:29 97.7 08/05/18 00:50 97.7 81 20 153/86 (108) 98 08/04/18 21:00 Room Air 08/04/18 20:00 97.9 87 18 129/87 (101) 100 08/04/18 16:00 97.9 87 19 156/92 (113) 96 Intake and Output 08/04/18 08/05/18 19:00 07:00 Intake Total 320 ml 600 ml Balance 320 ml 600 ml Intake Oral 320 ml 600 ml # Voids 3 4 General Appearance: WD/WN HEENT: normocephalic, atraumatic Respiratory/Chest: chest wall non-tender, lungs clear Breasts: no masses Cardiovascular: normal rate Abdomen: normal bowel sounds, non distended Genitourinary: normal external genitalia Laboratory Tests 08/05/18 06:35: White Blood Count 8.0, Red Blood Count 5.02, Hemoglobin 11.3L, Hematocrit 36.2L , Mean Corpuscular Volume 72L, Mean Corpuscular Hemoglobin 22.6L, Mean Corpuscular Hemoglobin Concent 31.3L, Red Cell Distribution Width 17.3H, Platelet Count 233, Mean Platelet Volume 7.2, Neutrophils (%) (Auto) , Lymphocytes (%) (Auto) , Monocytes (%) (Auto) , Eosinophils (%) (Auto) , Basophils (%) (Auto) , Differential Total Cells Counted 100, Neutrophils % ( Manual) 83H, Lymphocytes % (Manual) 13L, Monocytes % (Manual) 4, Eosinophils % ( Manual) 0, Basophils % (Manual) 0, Band Neutrophils 0, Platelet Estimate Adequate, Platelet Morphology Normal, Hypochromasia 1+, Anisocytosis 1+, Sodium Level 141, Potassium Level 3.0L, Chloride Level 107, Carbon Dioxide Level 25, Anion Gap 9, Blood Urea Nitrogen 21H, Creatinine 0.8, Estimat Glomerular Filtration Rate > 60, Glucose Level 135H, Calcium Level 8.9, Total Bilirubin 0.4 , Aspartate Amino Transf (AST/SGOT) 14L, Alanine Aminotransferase (ALT/SGPT) 28 , Alkaline Phosphatase 51, Pro-B-Type Natriuretic Peptide 156H, Total Protein 7.0, Albumin 3.4, Globulin 3.6, Albumin/Globulin Ratio 0.9L Current Medications Medications (Trade) Dose Ordered Sig/Jael Route PRN Reason Start Time Stop Time Status Last Admin Dose Admin Albuterol/ Ipratropium (Albuterol/ Ipratropium) 3 ml Q4H PRN HHN dyspnea 08/03/18 14:00 08/05/18 13:59 Amlodipine Besylate (Norvasc) 10 mg DAILY ORAL 08/04/18 09:00 08/31/18 08:59 08/05/18 10:25 Aripiprazole (Abilify) 5 mg DAILY ORAL 08/04/18 09:00 08/31/18 08:59 08/05/18 10:24 Baclofen (Lioresal) 10 mg DAILYPRN PRN ORAL MUSCLE SPASMS 08/03/18 17:30 08/30/18 17:29 Chlorhexidine Gluconate (Lucia-Hex 2%) 1 applic DAILY@2000 TOPIC 08/03/18 20:00 09/02/18 19:59 08/04/18 22:03 Dextrose (Dextrose 50%) 25 ml Q30M PRN IV Hypoglycemia 08/03/18 14:00 08/30/18 17:29 Dextrose (Dextrose 50%) 50 ml Q30M PRN IV Hypoglycemia 08/03/18 14:00 08/30/18 17:29 Diphenhydramine HCl (Benadryl) 25 mg Q3H PRN IVP Itching 08/03/18 14:00 08/31/18 07:59 08/05/18 13:03 Doxazosin Mesylate (Cardura) 1 mg DAILY ORAL 08/04/18 09:00 08/31/18 08:59 08/05/18 10:24 Furosemide (Lasix) 20 mg Q12HR ORAL 08/03/18 21:00 09/02/18 20:59 08/05/18 10:25 Gabapentin (Neurontin) 900 mg THREE TIMES A DAY ORAL 08/03/18 18:00 08/31/18 08:59 08/05/18 11:55 Hydromorphone HCl (Dilaudid) 0.5 mg Q3H PRN IVP Severe Pain (Pain Scale 7-10) 08/03/18 14:00 08/08/18 07:59 08/05/18 13:02 Insulin Aspart (NovoLOG) BEFORE MEALS AND HS SUBQ 08/03/18 16:30 08/31/18 06:29 08/04/18 16:43 Lorazepam (Ativan 2mg/ml 1ml) 0.5 mg Q4H PRN IV For Anxiety 08/03/18 14:00 08/07/18 13:59 Methylprednisolone Sodium Succinate (Solu-MEDROL) 60 mg EVERY 12 HOURS IV 08/03/18 21:00 08/31/18 01:59 08/05/18 10:01 Nitroglycerin (Ntg) 0.4 mg Q5M X 3 DOSES PRN SL Prn Chest Pain 08/03/18 13:45 08/30/18 17:29 Ondansetron HCl (Zofran) 4 mg Q6H PRN IVP Nausea & Vomiting 08/03/18 14:00 08/30/18 13:59 Oxycodone HCl (Roxicodone) 10 mg Q6H PRN ORAL Moderate Pain (Pain Scale 4-6) 08/03/18 14:00 08/07/18 13:59 Promethazine HCl/ Codeine (Phenergan with Codeine) 5 ml Q6H PRN ORAL cough 08/03/18 14:00 08/30/18 13:59 Quetiapine Fumarate (SEROquel) 50 mg DAILY ORAL 08/04/18 09:00 08/31/18 08:59 08/05/18 10:24 Rivaroxaban (Xarelto) 20 mg QPM ORAL 08/03/18 16:30 08/31/18 01:41 08/04/18 16:03 Temazepam (Restoril) 15 mg HSPRN PRN ORAL Insomnia 08/03/18 21:00 08/07/18 20:59 08/04/18 00:54 Theophylline (Андрей-Dur) 100 mg EVERY 12 HOURS ORAL 08/03/18 21:00 08/31/18 08:59 08/05/18 10:25 Leo Mendoza MD Aug 05, 2018 13:09
--- NOTE | 2018-08-05 13:23 | General Progress Note ---
Assessment/Plan Problem List: (1) COPD (chronic obstructive pulmonary disease) ICD Codes: J44.9 - Chronic obstructive pulmonary disease, unspecified SNOMED: 37560734 (2) Avascular necrosis of bone of right hip ICD Codes: M87.051 - Idiopathic aseptic necrosis of right femur SNOMED: 650375154 (3) Chronic congestive heart failure ICD Codes: I50.9 - Heart failure, unspecified SNOMED: 47188632 (4) Chronic pain ICD Codes: G89.29 - Other chronic pain SNOMED: 43651237 (5) Anemia ICD Codes: D64.9 - Anemia, unspecified SNOMED: 902260145 (6) HTN (hypertension) ICD Codes: I10 - Essential (primary) hypertension SNOMED: 35527400 (7) Diabetes ICD Codes: E11.9 - Type 2 diabetes mellitus without complications SNOMED: 33396180 Status: stable, progressing Assessment/Plan o2 pulm tx pt diet pain control dc w hh if clear Subjective Constitutional: Reports: weakness Allergies: Coded Allergies: ORANGE (Verified Allergy, Severe, Anaphylaxis, 06/06/18) PENICILLINS (Unverified Allergy, Unknown, 10/05/17) All Systems: reviewed and negative except above Subjective sl back pain Objective Last 24 Hour Vital Signs Date Time Temp Pulse Resp B/P (MAP) Pulse Ox O2 Delivery O2 Flow Rate FiO2 08/05/18 12:50 97.8 87 21 138/75 (96) 97 08/05/18 10:25 87 154/88 08/05/18 10:22 98.6 87 21 154/88 (110) 98 08/05/18 07:00 98 22 Room Air 21 08/05/18 04:00 98.3 78 18 156/88 (110) 100 08/05/18 01:29 97.7 08/05/18 00:50 97.7 81 20 153/86 (108) 98 08/04/18 21:00 Room Air 08/04/18 20:00 97.9 87 18 129/87 (101) 100 08/04/18 16:00 97.9 87 19 156/92 (113) 96 Intake and Output 08/04/18 08/05/18 19:00 07:00 Intake Total 320 ml 600 ml Balance 320 ml 600 ml Intake Oral 320 ml 600 ml # Voids 3 4 Laboratory Tests 08/05/18 06:35: White Blood Count 8.0, Red Blood Count 5.02, Hemoglobin 11.3L, Hematocrit 36.2L , Mean Corpuscular Volume 72L, Mean Corpuscular Hemoglobin 22.6L, Mean Corpuscular Hemoglobin Concent 31.3L, Red Cell Distribution Width 17.3H, Platelet Count 233, Mean Platelet Volume 7.2, Neutrophils (%) (Auto) , Lymphocytes (%) (Auto) , Monocytes (%) (Auto) , Eosinophils (%) (Auto) , Basophils (%) (Auto) , Differential Total Cells Counted 100, Neutrophils % ( Manual) 83H, Lymphocytes % (Manual) 13L, Monocytes % (Manual) 4, Eosinophils % ( Manual) 0, Basophils % (Manual) 0, Band Neutrophils 0, Platelet Estimate Adequate, Platelet Morphology Normal, Hypochromasia 1+, Anisocytosis 1+, Sodium Level 141, Potassium Level 3.0L, Chloride Level 107, Carbon Dioxide Level 25, Anion Gap 9, Blood Urea Nitrogen 21H, Creatinine 0.8, Estimat Glomerular Filtration Rate > 60, Glucose Level 135H, Calcium Level 8.9, Total Bilirubin 0.4 , Aspartate Amino Transf (AST/SGOT) 14L, Alanine Aminotransferase (ALT/SGPT) 28 , Alkaline Phosphatase 51, Pro-B-Type Natriuretic Peptide 156H, Total Protein 7.0, Albumin 3.4, Globulin 3.6, Albumin/Globulin Ratio 0.9L Height (Feet): 5 Height (Inches): 4.00 Weight (Pounds): 176 General Appearance: alert EENT: normal ENT inspection Neck: normal alignment Cardiovascular: normal peripheral pulses, normal rate, regular rhythm Respiratory/Chest: chest wall non-tender, lungs clear, normal breath sounds Abdomen: normal bowel sounds, non tender, soft Extremities: normal inspection Edema: no edema noted Arm (L), no edema noted Arm (R), no edema noted Leg (L), no edema noted Leg (R), no edema noted Pedal (L), no edema noted Pedal (R), no edema noted Generalized Neurologic: responsive, motor weakness Skin: normal pigmentation, warm/dry Reymundo Graves DO Aug 05, 2018 13:23
--- NOTE | 2018-08-05 15:00 | NUR ---
*-*INSURANCE *-* ALL CLINICALS , REVIEWS FAXED TO: [facility]HARDEEP WILL HANDLE THIS ADMIT PLEASE FAX THE REVIEW/CLINICAL P- [phone] F- [phone]
[2018-08-05 16:00] VITALS: BP 136/77
[2018-08-05] MEDS: Xarelto 10mg tab ORAL SCH (17:22)
--- NOTE | 2018-08-05 18:27 | NUR ---
NURSE NOTES: spoke with Dr. Haines earlier today regarding clearance for discharge. Per MD will come to see patient and hold discharge until he sees patient. CN made aware and Jessica WALDEN made aware. Dr. Haines was not informed about the consult. However, Dr. Graves mentioned the consulting MD this am. D/c instructions done. called [place] and next of kin to inform for discharge. will cont to monitor.
--- NOTE | 2018-08-05 19:21 | NUR ---
HAND-OFF: Report given to Fiona.
[2018-08-05 20:00] VITALS: BP 155/85
[2018-08-05] MEDS: Dyna-Hex 2% Top Sol 2oz TOPIC SCH (20:27)
--- NOTE | 2018-08-05 21:00 | NUR ---
NURSE NOTES: PATIENT IN WHEELCHAIR, AWAKE AND ALERT, TALKATIVE. MAKES ALL NEEDS KNOWN. PICC LEFT UPPER ARM IN PLACE, PATENT. NO S/S DISTRESS NOTED. COMPLAINS OF PAIN, MEDICATIONS NOT YET DUE UNTIL 2201, PATIENT VERBALIZED UNDERSTANDING. CALL LIGHT WITHIN REACH. WILL CONTINUE TO MONITOR.
[2018-08-06 00:02] VITALS: BP 148/79
[2018-08-06] MEDS: DiphenhydrAMINE 50mg/ml Inj IVP PRN ×6 (00:58→15:59)
[2018-08-06] MEDS: Hydromorphone 0.5mg/0.5ml inj IVP PRN ×6 (00:59→15:59)
[2018-08-06 03:54] VITALS: BP 154/81
--- NOTE | 2018-08-06 05:00 | NUR ---
NURSE NOTES: PATIENT ASLEEP, NO DISTRESS.
[2018-08-06] MEDS: NovoLOG Insulin Flexpen SUBQ SCH ×3 (05:33→16:30)
--- NOTE | 2018-08-06 07:36 | NUR ---
HAND-OFF: Report given to SANDRA FORDE RN.
--- NOTE | 2018-08-06 07:37 | NUR ---
NURSE NOTES: received report from VIKI Curry. patient in bed. alert. verbally responsive. no respiratory distress noted. no c/o pain at this time. bed in the lowest position. alarm on. call light within reach. will continue to monitor.
[2018-08-06 08:00] VITALS: BP 135/75
--- NOTE | 2018-08-06 08:18 | General Progress Note ---
Assessment/Plan Problem List: (1) COPD (chronic obstructive pulmonary disease) ICD Codes: J44.9 - Chronic obstructive pulmonary disease, unspecified SNOMED: 02078925 (2) Avascular necrosis of bone of right hip ICD Codes: M87.051 - Idiopathic aseptic necrosis of right femur SNOMED: 143656644 (3) Chronic congestive heart failure ICD Codes: I50.9 - Heart failure, unspecified SNOMED: 64440574 (4) Chronic pain ICD Codes: G89.29 - Other chronic pain SNOMED: 43097827 (5) Anemia ICD Codes: D64.9 - Anemia, unspecified SNOMED: 441149220 (6) HTN (hypertension) ICD Codes: I10 - Essential (primary) hypertension SNOMED: 91900891 (7) Diabetes ICD Codes: E11.9 - Type 2 diabetes mellitus without complications SNOMED: 89788962 Status: stable, progressing Assessment/Plan o2 pulm tx pt diet pain control cbc bmp am dc w hh if clear Subjective Constitutional: Reports: weakness Allergies: Coded Allergies: ORANGE (Verified Allergy, Severe, Anaphylaxis, 06/06/18) PENICILLINS (Unverified Allergy, Unknown, 10/05/17) All Systems: reviewed and negative except above Subjective sl back pain Objective Last 24 Hour Vital Signs Date Time Temp Pulse Resp B/P (MAP) Pulse Ox O2 Delivery O2 Flow Rate FiO2 08/06/18 07:25 97.0 08/06/18 03:54 97.0 75 19 154/81 (105) 95 08/06/18 00:02 98.4 83 20 148/79 (102) 99 08/05/18 23:50 96 20 Room Air 21 08/05/18 22:24 Room Air 08/05/18 20:00 98.6 89 20 155/85 (108) 99 08/05/18 16:00 98.8 90 21 136/77 (96) 97 08/05/18 12:50 97.8 87 21 138/75 (96) 97 08/05/18 10:25 87 154/88 08/05/18 10:22 98.6 87 21 154/88 (110) 98 08/05/18 09:00 Room Air Intake and Output 08/05/18 08/06/18 19:00 07:00 Intake Total 360 ml Balance 360 ml Intake Oral 360 ml # Voids 2 Height (Feet): 5 Height (Inches): 4.00 Weight (Pounds): 177 General Appearance: lethargic EENT: normal ENT inspection Neck: normal alignment Cardiovascular: normal peripheral pulses, normal rate, regular rhythm Respiratory/Chest: chest wall non-tender, lungs clear, normal breath sounds Abdomen: normal bowel sounds, non tender, soft Extremities: normal inspection Edema: no edema noted Arm (L), no edema noted Arm (R), no edema noted Leg (L), no edema noted Leg (R), no edema noted Pedal (L), no edema noted Pedal (R), no edema noted Generalized Neurologic: motor weakness Skin: normal pigmentation, warm/dry Reymundo Graves DO Aug 06, 2018 08:18
[2018-08-06] MEDS ORDERED: Losartan 25mg tab ORAL SCH (09:00)
--- NOTE | 2018-08-06 09:31 | Consultation ---
DATE OF CONSULTATION: 08/04/2018 CARDIOLOGY CONSULTATION CONSULTING PHYSICIAN: Ras Haines M.D. REFERRING PHYSICIAN: Reymundo Graves D.O. REASON FOR CONSULTATION: Management of accelerated hypertension. HISTORY OF PRESENT ILLNESS: The patient is a very unfortunate 63-year-old female, who presents to the hospital with right-sided hip pain. The patient states that she has been off medication for several weeks. She has cardiovascular history significant for history of hypertension and history of cerebrovascular accident in 2018. She also has history of COPD and has been reporting increased shortness of breath with associated productive cough with yellowish sputum. The patient was admitted to the hospital under Dr. Graves's service. Cardiology consultation was managed at the request of Dr. Reymundo Graves. At the time of arrival to the hospital, her blood pressure was 197/104 mmHg and pulse rate of 64. A 12-lead electrocardiogram at the time of arrival to this hospital was significant for sinus bradycardia with occasional premature ventricular complexes as well as premature atrial complexes. There was no acute ischemic changes. PAST MEDICAL HISTORY: History of hypertension, history of asthma, history of heart failure with normal EF, questionable history of coronary artery disease, and history of CVA with left hemiparesis. PAST SURGICAL HISTORY: Back surgery. ALLERGIES: To Penicillin. FAMILY HISTORY: No premature coronary artery disease in first-degree relatives. REVIEW OF SYSTEMS: HEENT: Denies any headache, diplopia, or blurred vision. CONSTITUTIONAL: Denies any fever, chills, night sweats, but complains of generalized weakness. CARDIOVASCULAR: Complains of shortness of breath for the past three days. No chest pain. No PND, orthopnea, or leg swelling. PULMONARY: Complaining of increased productive cough with yellow-green sputum, but no hemoptysis or wheezing. GASTROINTESTINAL: Denies any nausea, vomiting, diarrhea, constipation, abdominal pain, or GI bleed. GENITOURINARY: Denies any hematuria, dysuria, or incontinence. NEUROLOGY: History of prior stroke with left-sided weakness, but no recent signs of lateralization. MUSCULOSKELETAL: Complaining of right-sided hip pain, had back surgery as well. MEDICATIONS: List of medication includes acetaminophen 325 mg two capsules q.4 h. p.r.n. pain and mild temperature, albuterol two puffs inhaler q.4 h. p.r.n. cough and wheeze, amlodipine 10 mg p.o. daily, Abilify 5 mg p.o. daily, baclofen 10 mg p.o. daily p.r.n. pain, doxazosin 1 mg p.o. at bedtime, Lexapro 20 mg p.o. twice daily, furosemide 20 mg p.o. twice daily, gabapentin 900 mg three times a day, [place] 10/325 one tablet q.4 h. p.r.n. pain, insulin regular, Cozaar 100 mg twice daily, melatonin 3 mg p.o. at bedtime p.r.n. insomnia, morphine sulfate 30 mg p.o. daily, multivitamin one tablet p.o. daily, nebulizer q. 4 h., nitroglycerin 0.4 mg sublingual q. 5 minutes x3 dose p.r.n. chest pain, oxycodone 10 mg p.o. q. 6 h. p.r.n. pain, potassium chloride 10 p.o. daily, prednisone 20 mg p.o. twice daily, Seroquel 50 mg p.o. daily, Xarelto 10 mg p.o. twice daily, Restoril 15 mg at bedtime p.r.n. insomnia, and theophylline 100 mg p.o. q.12 h. PHYSICAL EXAMINATION: VITAL SIGNS: At the time of arrival to the hospital, her blood pressure was 197/104, pulse of 64, respirations of 18, temperature 98.1 degrees Fahrenheit, and O2 saturation 95% on room air. GENERAL: The patient is a very unfortunate 63-year-old chronically ill, obese patient, in no apparent respiratory distress. HEENT: Atraumatic and normocephalic. Pupils are equal, round, and reactive to light and accommodation. Extraocular muscles intact. NECK: JVP less than 5 cm. No carotid bruit. Carotid upstrokes 2+ bilaterally. CARDIOVASCULAR: Normal S1, S2. Regular rate and rhythm. No murmurs, gallops, or rubs. LUNGS: Bilateral wheezing. ABDOMEN: Soft, nontender, obese. No hepatosplenomegaly. Positive bowel sounds. EXTREMITIES: No evidence of edema, clubbing, or cyanosis. The right leg appears to be shorter than the left leg. LABORATORY FINDINGS: WBC was 8.0, hemoglobin 11.3, hematocrit 36.2, and platelet count of 233. Chemistry showed sodium of 141, potassium 3.0, chloride 107, bicarbonate 25, BUN 21, creatinine 0.8, glucose is 135. ProBNP was 156. Troponin I was 0.006. INR is 1.0. Chest x-ray, cardiomegaly with no acute cardiopulmonary disease. ASSESSMENT AND PLAN: The patient is a very unfortunate 63-year-old lady, was seen in Cardiology consultation. 1. Accelerated hypertension. The patient's blood pressure will be adjusted, amlodipine 10 mg will be continued. We may have to add LUCIO inhibitors to her regimen. 2. Shortness of breath and atypical chest pain. The patient had a nuclear stress test recently in May 2018, which showed no evidence of myocardial ischemia. No further cardiac workup is necessary. 3. A 2D echocardiography recently done in May 2018 had revealed normal LV systolic function with LVEF of approximately 55%. 4. Hyperlipidemia, continue atorvastatin. 5. Morbid obesity. I would like to thank, Dr. Graves, for allowing me to participate in care of this patient. Ras Haines M.D. DR: SHAY JOB#: [id number] CC:
[2018-08-06] MEDS: Doxazosin 1mg Tab ORAL SCH (09:54)
[2018-08-06] MEDS: Theophylline ER 100mg ORAL SCH (09:55)
[2018-08-06] MEDS: Solu-MEDROL 125mg Inj IV SCH (09:56)
[2018-08-06 12:00] VITALS: BP 141/76
[2018-08-06] MEDS ORDERED: LOSARTAN POTASS25 M1 PO (13:21)
--- NOTE | 2018-08-06 13:48 | NUR ---
NURSE NOTES: given admission report to Sahara Mcwliliams. patient back to [facility] today @[phone]
--- NOTE | 2018-08-06 13:49 | NUR ---
NURSE NOTES: scheduled transportation at 1630 to [facility]. talked Irene([id number])
--- NOTE | 2018-08-06 13:51 | NUR ---
NURSE NOTES: called [facility]. spoke with robotic welding operator. weight reduction specialist nurse will call back for schedule.
[2018-08-06] MEDS: Xarelto 10mg tab ORAL SCH (15:59)
[2018-08-06 16:00] VITALS: BP 144/98
--- NOTE | 2018-08-06 16:20 | NUR ---
CASE MANAGEMENT: REVIEW SI: CHF . T 97.2 HR 61 RR 22 BP 154/81 SAT 94% ROOM AIR IS: COZAAR PO QD CARDURA PO QD LASIX PO Q12HR SOLU MEDROL IV Q12HR THEOPHYLLINE PO Q12HR MED/SURG STATUS DCP: PATIENT IS FROM [facility]
--- NOTE | 2018-08-06 16:24 | NUR ---
CASE MANAGEMENT: DCPNOTE PER MD ORDER PATIENT REFERRED TO [facility] [phone]
--- NOTE | 2018-08-06 16:37 | NUR ---
NURSE NOTES: patient discharged to [facility] via ambulance with fair condition. [facility]. ID band and PICC line removed. no bleeding. belonging checked with patient. no respiratory distress noted. no c/o pain at this time. skin intact.
--- NOTE | 2018-08-06 22:34 | Cardiology Progress Note ---
Assessment/Plan Assessment/Plan 1. Accelerated hypertension. Continue amlodipine, losartan 25mg daily started , 2D echo with LVEF approximately 55%. 2. Shortness of breath and atypical chest pain. The patient had a nuclear stress test recently in May 2018, which showed no evidence of myocardial ischemia. No further cardiac workup is necessary. 3. Hyperlipidemia, continue atorvastatin. 4. Morbid obesity. Subjective Subjective No cardiac events. Objective Last 24 Hour Vital Signs Date Time Temp Pulse Resp B/P (MAP) Pulse Ox O2 Delivery O2 Flow Rate FiO2 08/06/18 16:00 97.6 90 19 144/98 (113) 94 08/06/18 12:00 98.2 61 22 141/76 (97) 94 08/06/18 09:55 135/75 08/06/18 09:55 61 135/75 08/06/18 09:00 Room Air 08/06/18 08:00 97.2 61 20 135/75 (95) 96 08/06/18 07:25 97.0 08/06/18 03:54 97.0 75 19 154/81 (105) 95 08/06/18 00:02 98.4 83 20 148/79 (102) 99 08/05/18 23:50 96 20 Room Air 21 Intake and Output 08/05/18 08/06/18 19:00 07:00 Intake Total 360 ml Balance 360 ml Intake Oral 360 ml # Voids 2 2D Echo: Echo from : LVEF 55%, Mild LVH, Grade I LVDD, RVSP 27 mmHg Objective HEENT: Atraumatic and normocephalic. Pupils are equal, round, and reactive to light and accommodation. Extraocular muscles intact. NECK: JVP less than 5 cm. No carotid bruit. Carotid upstrokes 2+ bilaterally. CARDIOVASCULAR: Normal S1, S2. Regular rate and rhythm. No murmurs, gallops, or rubs. LUNGS: Bilateral wheezing. ABDOMEN: Soft, nontender, obese. No hepatosplenomegaly. Positive bowel sounds. EXTREMITIES: No evidence of edema, clubbing, or cyanosis. The right leg appears to be shorter than the left leg. Ras Haines MD Aug 06, 2018 22:34
--- NOTE | 2018-08-08 14:59 | Discharge Summary ---
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 Patient reported being off her COPD medication for several weeks. Patient also reported increased right-sided hip pain. Patient with history of avascular necrosis of bone of the right hip. Upon evaluation patient was afebrile . No leukocytosis , hemoglobin 11.3. ABG was stable on room air. Stable renal parameters and electrolytes. Troponin negative. Pro BNP 1276. EKG revealed normal sinus rhythm no acute ischemic changes Chest x-ray revealed cardiomegaly no definite acute process. Surgical hardware was seen in the neck. Patient admitted for further management. CONSULTANTS: therapeutic mentor Dr. Haines pulmonary Dr. Mendoza pain specialist Dr. Rodríguez HOSPITAL COURSE Patient admitted. Pulmonology and cardiology consult were requested. Supplemental oxygen provided as needed to keep pulse oximetry above 90%. Pulmonary toilet with nebulizing therapy provided. Patient was started on intravenous steroids with gradual tapering down. Patient was started on empiric antibiotic. Sputum culture was negative. Blood cultures were negative. Rapid influenza screen test was negative. Follow-up chest x-ray revealed left basilar atelectasis, no acute process otherwise. Borderline cardiomegaly noted. Trial of theophylline started Antitussive provided as needed Patient was clinically improving. Pulse oximetry was stable on room air prior to discharge. Shortness of breath resolved. Recommended outpatient follow-up with talent solutions manager for full pulmonary function test and initiation of routine inhalers , depending on PFT results. Security Solutions Architect closely followed. Troponin was negative. EKG revealed no acute ischemic changes. Hypertensive urgency was managed with calcium channel osvaldo, angiotensin receptor osvaldo and Cardura. Blood pressure improved. Patient will need close follow-up as outpatient with primary care provider for close monitoring of blood pressure and optimization of antihypertensive regimen as needed. Echocardiogram on prior admission in May revealed ejection fraction of 55% . Patient also had a nuclear stress test in May 2018, which revealed no evidence of myocardial ischemia. Per therapeutic mentor, at this time no further cardiac workup was necessary. Statin was continued. Patient with chronic congestive heart failure , and was continued on maintenance dose of Lasix with close monitoring of volumes and cardiorenal parameters. Pro BNP from 1276 down to 156. Patient was counseled on importance of compliance with medication regimen. Prior x-ray of the right femur revealed extensive chronic deformity of the right acetabulum. CT scan of the pelvis at that time also demonstrated extensive chronic deformity of the right hip , possibly on the basis of prior avascular necrosis , severe chronic degenerative changes or prior trauma . Pain specialist followed. Pain management was provided as per pain specialist recommendation. Pain was controlled. Patient expressed desire to have a surgery for right hip. Patient was recommended outpatient follow-up with a primary care provider with referral to orthopedic surgeon for further management. Hemoglobin and hematocrit were closely monitored with goal to keep hemoglobin above 7. Hemoglobin and hematocrit remained in baseline prior to discharge hemoglobin 11.3 hematocrit 36.2. Renal parameters and electrolytes were closely monitored. Electrolytes/potassium corrected as needed. Nephrotoxins were avoided. Blood sugar was managed with sliding scale of insulin. Patient clinically stabilized and was ready for discharge home. FINAL DIAGNOSES: COPD Accelerated hypertension likely due to hypertensive urgency - resolved Atypical chest pain Hyperlipidemia Morbid obesity Chronic congestive heart failure Anemia Diabetes mellitus Coronary artery disease with history of HI History of CVA with left-sided weakness Right hip pain and osteoarthritis Possible right hip subluxation Cervical and lumbar degenerative disc disease History of cervical and lumbar fusion DISCHARGE MEDICATIONS: See Medication Reconciliation list. DISCHARGE INSTRUCTIONS: Patient was discharged home . Follow up with primary care provider in one week with referral to ortho surgeon and talent solutions manager. I have been assigned to dictate discharge summary for this account. I was not involved in the patient's management. Ellyn Chaparro NP Aug 08, 2018 14:59
--- NOTE | 2018-08-16 22:52 | Physician Query ---
--------- THIS DOCUMENT IS A PERMANENT PART OF THE MEDICAL RECORD --------- PLEASE COMPLETE THE DOCUMENT BEFORE SIGNING Dear Dr. PRESTON Date: 08/16/2018 Colorist Formulator/CDS' Name: KendallNickyBELLACARLEE OLGUIN Exercise your independent professional judgment when responding to query. Questions asked do not imply particular answer is desired or expected. We greatly appreciate your clarification on this issue. 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 Patient reported being off her COPD medication for several weeks. Per reuse technician, at this time no further cardiac workup was necessary. Statin was continued. Patient with chronic congestive heart failure , and was continued on maintenance dose of Lasix with close monitoring of volumes and cardiorenal parameters. Echocardiogram on prior admission in May revealed ejection fraction of 55% . Pro BNP from 1276 down to 156. Meds: Lasix Troponin negative. Pro BNP 1276. EKG revealed normal sinus rhythm no acute ischemic changes Please Clarify CHF: Acuity: [] Acute [] Chronic [] Acute on Chronic Type: [] Systolic [] Diastolic [] Systolic & Diastolic (Combined) [] Left Heart failure [] Other: Etiology: [] CHF due to Hypertension [] Cardiomyopathy [] Valvular Heart Disease [] Coronary Artery Disease [] Unable to determine [] Other: Condition Present on Admission: [] Yes [] No []Clinically Undeterminable ALEKSANDR PRESTON D.O. [facility]
== END 2018-08-06 16:49 | disposition home or self-care (01) | DRG 199 ==
LOC: EDBD 14:13 → EMR 14:48 → 2E 17:28 → EDBEDREQ 08-01 00:10 → 2E 08-02 09:24 → 4E 08-03 13:23
PROC: 02HV33Z Insertion of Infusion Device into Superior Vena Cava, Percutaneous Approach (ICD-10-PCS; principal; 2018-08-03)
DX: I16.0 Hypertensive urgency (principal); I50.9 Heart failure, unspecified; E66.01 Morbid (severe) obesity due to excess calories; I69.354 Hemiplegia and hemiparesis following cerebral infarction affecting left non-dominant side; M87.851 Other osteonecrosis, right femur; J44.9 Chronic obstructive pulmonary disease, unspecified; I11.0 Hypertensive heart disease with heart failure; S73.001A Unspecified subluxation of right hip, initial encounter; R07.89 Other chest pain; E78.5 Hyperlipidemia, unspecified; D64.9 Anemia, unspecified; I25.10 Atherosclerotic heart disease of native coronary artery without angina pectoris; I25.2 Old myocardial infarction; M16.11 Unilateral primary osteoarthritis, right hip; X58.XXXA Exposure to other specified factors, initial encounter; Z98.1 Arthrodesis status; Z88.0 Allergy status to penicillin; K21.9 Gastro-esophageal reflux disease without esophagitis; M50.10 Cervical disc disorder with radiculopathy, unspecified cervical region; M51.16 Intervertebral disc disorders with radiculopathy, lumbar region; M47.22 Other spondylosis with radiculopathy, cervical region; M47.26 Other spondylosis with radiculopathy, lumbar region; G89.29 Other chronic pain; E11.9 Type 2 diabetes mellitus without complications; Z79.01 Long term (current) use of anticoagulants; Z79.4 Long term (current) use of insulin; Z68.30 Body mass index [BMI] 30.0-30.9, adult
CPT/HCPCS: 36415; 36569; 36600; 71045; 76937; 80048; 80053; 82803; 82962; 83690; 83880; 84484; 85007; 85025; 85610; 85730; 86710; 86850; 86900; 86901; 87040; 87070; 87081; 87205; 93005; 94640; 94664; 96374; 96375; 99285; J1815; J8499

== ENCOUNTER 2018-08-09 15:53 | Emergency (ER) | payer OTHER ==
[~2018-08-09] VITALS: Ht 162.6 cm; Wt 72.6 kg
[~2018-08-09 15:53] MED LIST changes: +ABILIFY2 MG ORAL; +FUROSEMIDE20 M1 ORAL; +LOSARTAN POTASS25 M1 PO; +MELATONIN3 MG ORAL; +MORPHINE SULFAT30 M8 PO; +QUETIAPINE FUMA50 MG ORAL; +SERTRALINE HCL50 MG ORAL
--- NOTE | 2018-08-09 15:59 | NUR ---
ED Nurse Note: Pt from [facility] brought in by ambulance due to back and right hip pain S/P fall and pt staes she has broken bones on her back. Pt states she is supposed to have right hip surgery on wednesday but cancelled. Pt is AAO x4, non ambulatory with non labored breathing.
--- NOTE | 2018-08-09 16:45 | NUR ---
ED Nurse Note: Multiple RNs tried to insert IV access. Called lab for blood draw. Erasmo nurse informed.
[2018-08-09] MEDS ORDERED: Morphine Sulfate 4mg/ml Inj (IV USE ONLY) IVP ONE (18:00)
[2018-08-09] MEDS ORDERED: HYDROmorphone 1mg/ml Carpuject IVP ONE ×2 (18:15→20:00)
[2018-08-09] MEDS ORDERED: DiphenhydrAMINE 50mg/ml Inj IVP ONE ×2 (18:15→20:00)
--- NOTE | 2018-08-09 18:20 | NUR ---
ED Nurse Note: Industrial Millwright at the bed side for blood draw.
[2018-08-09] MEDS ORDERED: ASPIR 8181 MG ORAL (18:27)
--- NOTE | 2018-08-09 18:29 | Emergency Room Report ---
History of Present Illness General Chief Complaint: Pain Source: EMS Present Illness HPI Patient has history of chronic pain. Patient presents emergency department today complaining of right hip pain. Patient states that she was post be scheduled for surgery involving her right hip. Review medical records show the patient has had chronic pain in the hip and there was some concern about drug- seeking behavior or chronic pain. Patient currently stays at a [facility]. Patient's primary care physician is Dr. Reymundo Graves. No other complaints were noted patient noted to moderate severe. Patient denies any recent trauma fall.No other modifying factors. No other associated signs and symptoms. No other complaints were noted. Allergies: Coded Allergies: ORANGE (Verified Allergy, Severe, Anaphylaxis, 06/06/18) PENICILLINS (Unverified Allergy, Unknown, 10/05/17) Patient History Past Medical History: DM, HTN, CAD, CVA/TIA, other - chronic pain Social History: Denies: smoking, alcohol use, drug use Reviewed Nursing 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: PMH: Agreed; PSxH: Agreed Nursing 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-PMH Past Medical History: No History, Except For Hx Cardiac Problems: Yes Hx Hypertension: Yes Hx Pacemaker: No Hx Asthma: Yes Hx COPD: Yes Hx Diabetes: Yes Hx Cancer: No Hx Gastrointestinal Problems: No Hx Dialysis: No Hx Neurological Problems: Yes Hx Cerebrovascular Accident: Yes Hx Seizures: No Review of Systems All Other Systems: negative except mentioned in HPI Physical Exam Vital Signs Date Time Temp Pulse Resp B/P (MAP) Pulse Ox O2 Delivery O2 Flow Rate FiO2 08/09/18 15:49 97.5 94 16 135/91 98 Room Air Sp02 EP Interpretation: reviewed, normal General Appearance: normal inspection, well appearing, no apparent distress, alert Head: atraumatic Eyes: bilateral eye normal inspection ENT: normal ENT inspection, hearing grossly normal, normal voice Neck: normal inspection, full range of motion, supple, no bony tend Respiratory: normal inspection, lungs clear, normal breath sounds, no respiratory distress, no retraction, no wheezing Cardiovascular #1: regular rate, rhythm, no edema Gastrointestinal: normal inspection, normal bowel sounds, non tender, soft, no guarding, no hernia Genitourinary: no CVA tenderness Musculoskeletal: back normal, decreased range of motion - Right hip, tender - Right hip Neurologic: normal inspection, alert, responsive, speech normal Psychiatric: normal inspection, judgement/insight normal, mood/affect normal Skin: normal inspection, normal color, no rash Medical Decision Making Diagnostic Impression: Primary Impression: Hip pain ER Course Patient presents emergency department today complaining of right hip pain. Differential considerations include chronic hip pain, dislocation, arthritis, drug seeking behavior just name a few.Given the severity of the patient's presentation I felt this is a highly complex patient. This patient required extensive workup. Patient's laboratory workup was not impressive. X-ray shows chronic avascular necrosis. Case was discussed with Dr. Nance who knows the patient well and is electronic assembler group leader for [employer]. He states the patient has chronic pain and that this is a chronic issue. He recommended patient be discharged. Does not feel the patient require surgery at this time. Therefore we'll discharge patient for outpatient follow-up given that is not an acute event. Labs Test 08/09/18 18:20 White Blood Count 11.2 K/UL (4.8-10.8) Red Blood Count 5.07 M/UL (4.20-5.40) Hemoglobin 11.3 G/DL (12.0-16.0) Hematocrit 37.4 % (37.0-47.0) Mean Corpuscular Volume 74 FL (80-99) Mean Corpuscular Hemoglobin 22.2 PG (27.0-31.0) Mean Corpuscular Hemoglobin Concent 30.2 G/DL (32.0-36.0) Red Cell Distribution Width 16.8 % (11.6-14.8) Platelet Count 230 K/UL (150-450) Mean Platelet Volume 6.3 FL (6.5-10.1) Neutrophils (%) (Auto) 71.5 % (45.0-75.0) Lymphocytes (%) (Auto) 22.1 % (20.0-45.0) Monocytes (%) (Auto) 4.2 % (1.0-10.0) Eosinophils (%) (Auto) 1.4 % (0.0-3.0) Basophils (%) (Auto) 0.8 % (0.0-2.0) Prothrombin Time 11.1 SEC (9.30-11.50) Prothromb Time International Ratio 1.1 (0.9-1.1) Activated Partial Thromboplast Time 28 SEC (23-33) Sodium Level 140 MMOL/L (136-145) Potassium Level 3.2 MMOL/L (3.5-5.1) Chloride Level 107 MMOL/L (98-107) Carbon Dioxide Level 25 MMOL/L (21-32) Anion Gap 8 mmol/L (5-15) Blood Urea Nitrogen 11 mg/dL (7-18) Creatinine 0.6 MG/DL (0.55-1.30) Estimat Glomerular Filtration Rate > 60 mL/min (>60) Glucose Level 92 MG/DL (74-106) Calcium Level 8.6 MG/DL (8.5-10.1) Total Bilirubin 0.7 MG/DL (0.2-1.0) Aspartate Amino Transf (AST/SGOT) 12 U/L (15-37) Alanine Aminotransferase (ALT/SGPT) 23 U/L (12-78) Alkaline Phosphatase 56 U/L (46-116) Total Protein 6.6 G/DL (6.4-8.2) Albumin 3.2 G/DL (3.4-5.0) Globulin 3.4 g/dL Albumin/Globulin Ratio 0.9 (1.0-2.7) Other X-Ray Diagnostic Results Other X-Ray Diagnostic Results : X-Ray ordered: Right hip and pelvis # of Views/Limited Vs Complete: 4 View Indication: Pain EP Interpretation: Yes Interpretation: nonspecific bowel gas, other - Hardware in place. Avascular necrosis right femoral head. Mild dislocation. Unchanged since 2016. Impression: Other - Avascular necrosis and chronic dislocation right hip Electronically Signed by: Electronically signed by Tong Flores MD Last Vital Signs Date Time Temp Pulse Resp B/P (MAP) Pulse Ox O2 Delivery O2 Flow Rate FiO2 08/09/18 15:49 97.5 94 16 135/91 98 Room Air Status: improved Disposition: HOME, SELF-CARE Condition: Stable Referrals: [facility],REFERRING (PCP) Tong Flores MD Aug 09, 2018 18:28
[2018-08-09] MEDS ORDERED: oxyCODONE 5mg IR tab ORAL PRN (18:30)
[2018-08-09] MEDS ORDERED: Mylanta II UD 30ml ORAL PRN (18:30)
[2018-08-09] MEDS ORDERED: Albuterol 90mcg Inhaler 8gm INH PRN (18:30)
[2018-08-09] MEDS ORDERED: Miralax 17gm pkt ORAL PRN (18:30)
[2018-08-09] MEDS ORDERED: Zolpidem 5mg tab ORAL PRN (18:30)
[2018-08-09] MEDS ORDERED: Morphine Sulfate 2mg/ml Inj(IV/IM USE ONLY) IVP PRN (18:30)
[2018-08-09] MEDS ORDERED: LORazepam Inj 2mg/ml 1ml IV PRN (18:30)
[2018-08-09] MEDS ORDERED: ABILIFY5 MG ORAL (18:33)
[2018-08-09] MEDS ORDERED: LOSARTAN POTAS100 MG ORAL (18:33)
[2018-08-09] MEDS ORDERED: MORPHINE SULFAT30 M4 PO (18:33)
[2018-08-09 18:43] LABS: BASOPHILS % (AUTO) 0.8 % (0.0-2.0); EOSINOPHILS % (AUTO) 1.4 % (0.0-3.0); HEMATOCRIT 37.4 % (37.0-47.0); HEMOGLOBIN 11.3 G/DL (12.0-16.0); LYMPHOCYTES % (AUTO) 22.1 % (20.0-45.0); MEAN CORPUSCULAR VOLUME 74 FL (80-99); MONOCYTES % (AUTO) 4.2 % (1.0-10.0); NEUTROPHILS % (AUTO) 71.5 % (45.0-75.0); PLATELET COUNT 230 K/UL (150-450); RED BLOOD COUNT 5.07 M/UL (4.20-5.40); RED CELL DISTRIBUTION WIDTH 16.8 % (11.6-14.8); WHITE BLOOD COUNT 11.2 K/UL (4.8-10.8)
[2018-08-09] MEDS ORDERED: MORPHINE SULFAT30 M8 PO (18:43)
[2018-08-09 18:51] LABS: INR 1.1 (0.9-1.1)
[2018-08-09 19:04] LABS: ANION GAP 8 mmol/L (5-15); BLOOD UREA NITROGEN 11 mg/dL (7-18); CALCIUM 8.6 MG/DL (8.5-10.1); CARBON DIOXIDE 25 MMOL/L (21-32); CHLORIDE 107 MMOL/L (98-107); CREATININE 0.6 MG/DL (0.55-1.30); POTASSIUM 3.2 MMOL/L (3.5-5.1); SODIUM 140 MMOL/L (136-145)
--- NOTE | 2018-08-09 19:05 | NUR ---
HAND-OFF: Report given to Bonnie DREW.
[2018-08-09 19:09] LABS: ALANINE AMINOTRANSFERASE 23 U/L (12-78); ALBUMIN 3.2 G/DL (3.4-5.0); ALBUMIN/GLOBULIN RATIO 0.9 (1.0-2.7); ALKALINE PHOSPHATASE 56 U/L (46-116); ASPARTATE AMINO TRANSFERASE 12 U/L (15-37); BILIRUBIN,TOTAL 0.7 MG/DL (0.2-1.0)
--- NOTE | 2018-08-09 19:30 | NUR ---
ED Nurse Note: RECIEVED REPORT FROM AM NURSE TO RESUME CARE, PT IN BED AWAKE, ALERT AND ORIENTED X 4, PT IS MOANING AND GROANING STATING SHE HAS SEVERE 10/10 RIGHT HIP PAIN, PT WAS RECENTLY MEDICATED AND STATES MEDS NOT EFFECTIVE AT ALL, STATING SHE NEEDS MORE MEDS, INTRODUCED SELF, PT PLACED ON MONITORING, HAS IV SITE IN RIGHT WRIST, WILL RESUME CARE ORDERED AND CONTINUE TO CLOSELY MONITOR.
[2018-08-09 19:40] VITALS: BP 146/56
--- NOTE | 2018-08-09 19:44 | General Progress Note ---
Assessment/Plan Assessment/Plan (1) Cervical and Lumbar DDD (2) Cervical and Lumbar Spondylosis (3) Cervical and Lumbar Herniated disc (4) Cervical and Lumbar Radiculopathy (5) H/o Cervical and Lumbar fusion (6) Right hip pain and OA Patient will be started on morphine 1mg IV q4H PRN severe pain and Oxycodone 5mg PO 1 tab Q6H PRN mod pain. D/w Dr. Rodríguez and he concurred. Subjective Date patient seen: Aug 09, 2018 Allergies: Coded Allergies: ORANGE (Verified Allergy, Severe, Anaphylaxis, 06/06/18) PENICILLINS (Unverified Allergy, Unknown, 10/05/17) Subjective Constitutional: Reports: weakness HEENT: Reports: no symptoms Cardiovascular: Reports: no symptoms Respiratory: Reports: no symptoms Gastrointestinal/Abdominal: Reports: no symptoms Genitourinary: Reports: no symptoms Neurologic/Psychiatric: Reports: weakness Endocrine: Reports: no symptoms Hematologic/Lymphatic: Reports: no symptoms Subjective Patient is a known patient from prior admission and continues to c/o neck back and right hip pain. We were consulted so patient has adequate pain control while here in the hospital Objective Last 24 Hour Vital Signs Date Time Temp Pulse Resp B/P (MAP) Pulse Ox O2 Delivery O2 Flow Rate FiO2 08/09/18 18:51 97.6 08/09/18 15:49 97.5 94 16 135/91 98 Room Air Laboratory Tests 08/09/18 18:20: White Blood Count 11.2H, Red Blood Count 5.07, Hemoglobin 11.3L, Hematocrit 37.4 , Mean Corpuscular Volume 74L, Mean Corpuscular Hemoglobin 22.2L, Mean Corpuscular Hemoglobin Concent 30.2L, Red Cell Distribution Width 16.8H, Platelet Count 230, Mean Platelet Volume 6.3L, Neutrophils (%) (Auto) 71.5, Lymphocytes (%) (Auto) 22.1, Monocytes (%) (Auto) 4.2, Eosinophils (%) (Auto) 1.4, Basophils (%) (Auto) 0.8, Prothrombin Time 11.1, Prothromb Time International Ratio 1.1, Activated Partial Thromboplast Time 28, Sodium Level 140, Potassium Level 3.2L, Chloride Level 107, Carbon Dioxide Level 25, Anion Gap 8, Blood Urea Nitrogen 11, Creatinine 0.6, Estimat Glomerular Filtration Rate > 60, Glucose Level 92, Calcium Level 8.6, Total Bilirubin 0.7, Aspartate Amino Transf (AST/SGOT) 12L, Alanine Aminotransferase (ALT/SGPT) 23, Alkaline Phosphatase 56, Total Protein 6.6, Albumin 3.2L, Globulin 3.4, Albumin/Globulin Ratio 0.9L Height (Feet): 5 Height (Inches): 4.00 Weight (Pounds): 160 Objective General Appearance: no apparent distress, alert EENT: PERRL/EOMI Neck: non-tender, supple Cardiovascular: normal rate, regular rhythm Respiratory/Chest: lungs clear, normal breath sounds Abdomen: non tender, soft Extremities: decreased range of motion Edema: trace edema Neurologic: alert, oriented x 3 Skin: warm/dry Ludwig Silver Aug 09, 2018 19:44
[2018-08-09] MEDS ORDERED: NovoLOG Insulin Flexpen SUBQ SCH (21:00)
[2018-08-09] MEDS ORDERED: Theophylline ER 100mg ORAL SCH (21:00)
--- NOTE | 2018-08-09 21:00 | NUR ---
ED Nurse Note: PT MEDICATED WITH SECOND DOSE OF DILAUDID, STATES MEDS EFFECTIVE ONLY FOR SHORT TIME, PT CONSTANTLY ASKING FOR MORE PAIN MEDS, AWARE, PT IS TO BE ADMITTED, V/S STABLE, NO NEW MED ORDERS GIVEN, WILL PREPARE FOR ADMIT WHEN BED IS AVAILABLE.
[2018-08-09 21:15] VITALS: BP 136/63
[2018-08-09] MEDS ORDERED: HYDROcodone/Acetamin 5/325 tab ORAL ONE (21:45)
--- NOTE | 2018-08-09 21:45 | NUR ---
ED Nurse Note: PT TO NO LONGER BE ADMITTED, PT WILL BE DISCHARGED BACK TO [facility], JUST NOTIFIED OF EVENT AND AMBULANCE ETA IS 5 MINUTES, WILL RPEAPRE FOR DISCHARGE, PT IN BED AWAKE, ALERT AND ORIENTED X 4, PT ANGRY STATING SHE STILL HAS SEVERE PAIN AND MD WILL NOT GIVE HRE PRESCRIPTION FOR PAIN MEDS, IV LINE REMOVED, PT ON CARDIAC MONITORING, V/S STABLE, WILL PREAPRE FOR DISCHARGE AND CALL FACILITY FOR PT RETURN.
--- NOTE | 2018-08-09 21:52 | NUR ---
ED Nurse Note: PLACED CALL TO [facility] FOR PT RETURN, REPORT GIVEN TO [place], ALL INFO GIVEN ALONG WITH PT D/C INSTRUCTIONS AND AMBULANCE ETA, WAITING FOR PT TRANSPORT TO DISCHARGE.
[2018-08-09 22:30] VITALS: BP 136/63
--- NOTE | 2018-08-09 22:30 | History and Physical Report ---
DATE OF ADMISSION: 08/09/2018 TIME SEEN: 5 p.m. CONSULTANTS: 1. Corbin Live M.D. 2. Ale Rodríguez M.D. 3. Leo Mendoza M.D. 4. Yazan Mars M.D. CHIEF COMPLAINT: Back pain and hip pain, pending surgery. BRIEF HISTORY: This is a 63-year-old female, who lives at [facility], presents with excruciating hip pain. She says she is pending surgery, came to the ER, diagnosed with the above, being admitted to medical floor shortly. Currently calm in the ER gurney, oriented x3, in no acute distress. PAST MEDICAL HISTORY: Arthritis, depression, CAD, IA, CVA, hypertension, COPD, CHF, PUD, anemia. PAST SURGICAL HISTORY: Back surgery. MEDICATIONS: We will obtain list shortly. ALLERGIES: Penicillin. SOCIAL HISTORY: No smoking. No alcohol. No intravenous drug abuse. FAMILY HISTORY: Noncontributory. PHYSICAL EXAMINATION: GENERAL: Calm in bed, oriented x3, slight distress secondary to pain in back and hip. VITAL SIGNS: Temperature 97 degrees, pulse 94, respirations 16, blood pressure 135/91. CARDIOVASCULAR: No murmur. LUNGS: Distant and clear. ABDOMEN: Bowel sounds positive. Nontender. Nondistended. EXTREMITIES: No cyanosis, clubbing, or edema. NEUROLOGIC: The patient moves all extremities, slightly weak. LABORATORY AND DIAGNOSTIC DATA: Pending. ASSESSMENT: 1. Back pain and hip pain, pending surgery. 2. Arthritis. 3. Depression. 4. CAD. 5. Hypertension. 6. COPD. 7. CHF. 8. PUD. 9. Anemia. PLAN: 1. Pain control. 2. OT/PT, dietary evaluation. 3. CBC and BMP in the morning. 4. Blood pressure control. 5. We will continue to follow this patient. Reymundo Graves D.O. DR: Domenica JOB#: [id number] CC:
--- NOTE | 2018-08-09 22:30 | NUR ---
ED Nurse Note: PT DISCHARGED BACK TO [facility]ARE [facility], PT MEDICATED FOR PAIN PRIOR TO LEAVING WITH [facility], PT DISCHARGED BY ALICE TRUJILLO RN, PT LEAVING FACILITY AWAKE, ALERT AND ORIENTED X 4, NAD NOTED DURING PT TRANSPORT.
[2018-08-10] MEDS ORDERED: Losartan 25mg tab ORAL SCH (09:00)
[2018-08-10] MEDS ORDERED: Furosemide 80mg tab ORAL SCH (09:00)
[2018-08-10] MEDS ORDERED: Sertraline 50mg tab ORAL SCH (09:00)
[2018-08-10] MEDS ORDERED: Doxazosin 1mg Tab ORAL SCH (09:00)
[2018-08-10] MEDS ORDERED: ARIPiprazole 2mg tab ORAL SCH (09:00)
[2018-08-10] MEDS ORDERED: Xarelto 10mg tab ORAL SCH (09:00)
--- NOTE | 2018-08-11 09:31 | Diagnostic Imaging Report ---
Indication: Hip pain, pelvic pain Technique: One view of the pelvis. 2 views of the bilateral hips Comparison: Pelvic CT 12/08/2016 Findings: Previously demonstrated lumbar spine fusion hardware bridges into the bilateral iliac bones. Again demonstrated is extensive chronic deformity of the right hip joint. The femur is subluxed superiorly and laterally, and there is chronic appearing complete destruction of the femoral head which is most likely on the basis of degenerative remodeling as well as due to the alignment abnormality. Osseous proliferative changes of the synovium are again demonstrated. The left hip joint appears intact. The remainder the pelvis appears intact. Impression: Progressive chronic abnormality of the right hip,, presumably related to chronic subluxation, secondary degenerative change, and degenerative remodeling, as described Postsurgical changes, as described No definite acute abnormality
--- NOTE | 2018-08-11 09:31 | Diagnostic Imaging Report ---
Indication: Chest pain Technique: One view of the chest Comparison: 08/03/2018 Findings: Patient's chin obscures the right lung apex. There is mild central bronchial wall thickening. There is mild elevation the right hemidiaphragm. Lungs and pleural spaces are otherwise clear. The heart size is upper limits of normal. Previously demonstrated left basilar atelectasis is no longer evident Impression: Findings as noted. No definite acute process
--- NOTE | 2018-08-11 13:13 | Consultation ---
DATE OF CONSULTATION: 08/09/2018 ORTHOPEDIC CONSULTATION CONSULTING PHYSICIAN: Corbin Live M.D. CHIEF COMPLAINT: Right hip. HISTORY OF PRESENT ILLNESS: The patient is a 63-year-old female who has had chronic history of right hip pain. She presented to the ER for right hip pain. Orthopedic consultation was obtained for further care and recommendation. The patient has significant pain in the right hip, shortening of the right leg, internal rotation. Neurovascular is normal. IMAGING STUDIES: Show advanced collapse of the right hip with superior migration superior dome. ASSESSMENT: Right hip arthritis with complete collapse of the femoral head. DISCUSSION: At this point, she does need total hip arthroplasty. Of note, she is at high risk with her medical comorbidities as well as the fact that she has not been ambulatory, she has significant risk of instability and infection. At this point, I do not think she is a good surgical candidate. She may be a candidate for procedure, which basically is . Alternatively, if there is a doctor who feels comfortable proceeding with surgery, then revision total hip arthroplasty will be reasonable. Corbin Live M.D. DR: CYNDI JOB#: [id number] CC:
== END 2018-08-09 22:30 | disposition home or self-care (01) ==
LOC: EDBD 15:53 → EDBEDREQ 16:02 → EMR 17:22 → EDBEDREQ 20:52 → UNDOADMIN 21:02 → 4E 21:02 → CANBEDREQ 21:20 → EMR 22:30
DX: M54.9 Dorsalgia, unspecified (principal); M19.90 Unspecified osteoarthritis, unspecified site; F32.9 Major depressive disorder, single episode, unspecified; I25.10 Atherosclerotic heart disease of native coronary artery without angina pectoris; J44.9 Chronic obstructive pulmonary disease, unspecified; I11.0 Hypertensive heart disease with heart failure; I50.9 Heart failure, unspecified; K27.9 Peptic ulcer, site unspecified, unspecified as acute or chronic, without hemorrhage or perforation; D64.9 Anemia, unspecified
CPT/HCPCS: 36415; 71045; 73521; 80053; 85025; 85610; 85730; 93005; 96374; 96375; 99284; J1170; J1200; J2405

== ENCOUNTER 2018-08-14 17:26 | Emergency (ER) | payer OTHER ==
[~2018-08-14] VITALS: Ht 157.5 cm; Wt 86.2 kg
[~2018-08-14 17:26] MED LIST changes: +ABILIFY5 MG ORAL; +LOSARTAN POTAS100 MG ORAL; +MORPHINE SULFAT30 M4 PO
[2018-08-14 17:31] VITALS: BP 151/80
[2018-08-14] MEDS ORDERED: HYDROCODON-ACE1 EA13 ORAL (17:37)
[2018-08-14] MEDS ORDERED: Sodium Chloride 550 ML IV SCH (17:45)
[2018-08-14] MEDS ORDERED: HYDROmorphone 1mg/ml Carpuject IVP ONE (17:45)
--- NOTE | 2018-08-14 17:51 | Emergency Room Report ---
History of Present Illness General Chief Complaint: Pain Source: Patient, Medical Record, EMS Present Illness HPI Patient presents complaining about right hip pain. She is at a longterm facility. She says that she has surgery scheduled tomorrow. His chronic subluxation and shortening of the hip. She's been taking [place] and hasn't been helping. She states the pain is 10/10 radiating towards her lower back and also down towards her thigh. She states she had a fever last night's. She also called us to be of vomiting yesterday but denies any diarrhea. She denies dysuria. She gets around in a wheelchair. No dysuria. Moving her bowels without difficulty. The patient was seen August 09. An x-ray was performed. This is the result: Findings: Previously demonstrated lumbar spine fusion hardware bridges into the bilateral iliac bones. Again demonstrated is extensive chronic deformity of the right hip joint. The femur is subluxed superiorly and laterally, and there is chronic appearing complete destruction of the femoral head which is most likely on the basis of degenerative remodeling as well as due to the alignment abnormality. Osseous proliferative changes of the synovium are again demonstrated. The left hip joint appears intact. The remainder the pelvis appears intact. Impression: Progressive chronic abnormality of the right hip,, presumably related to chronic subluxation, secondary degenerative change, and degenerative remodeling, as described Postsurgical changes, as described No definite acute abnormality Admitted last year for CHF. Denies chest pain or dyspnea. No fevers or productive cough. 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 Nursing 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: PMH: Agreed; PSxH: Agreed Nursing 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-PMH Hx Cardiac Problems: Yes Hx Hypertension: Yes Hx Pacemaker: No Hx Asthma: Yes Hx COPD: Yes Hx Diabetes: Yes Hx Cancer: No Hx Gastrointestinal Problems: No Hx Dialysis: No Hx Neurological Problems: Yes Hx Cerebrovascular Accident: Yes Hx Seizures: No Review of Systems All Other Systems: negative except mentioned in HPI Physical Exam Vital Signs Date Time Temp Pulse Resp B/P (MAP) Pulse Ox O2 Delivery O2 Flow Rate FiO2 08/14/18 17:31 97.0 91 16 151/80 97 Room Air Sp02 EP Interpretation: reviewed, normal General Appearance: no apparent distress, alert, obese, Chronically Ill Head: normocephalic Eyes: bilateral eye normal inspection, bilateral eye PERRL ENT: moist mucus membranes Neck: supple Respiratory: lungs clear, normal breath sounds Cardiovascular #1: regular rate, rhythm Cardiovascular #2: 2+ radial (R) Gastrointestinal: normal inspection, normal bowel sounds, non tender, no mass, non-distended, overweight Genitourinary: no CVA tenderness Musculoskeletal: digits/nails normal, pelvis stable, other - Shortening right hip, tender - R hip with palpation and passive motion Neurologic: alert, oriented x3, grossly normal Psychiatric: other - occasionally agitated at staff Skin: normal inspection, warm/dry Medical Decision Making Diagnostic Impression: Primary Impression: Chronic hip pain Qualified Codes: M25.551 - Pain in right hip; G89.29 - Other chronic pain Additional Impressions: Hypokalemia BMI 34.0-34.9,adult ER Course The patient presents with uncontrolled right hip pain. Differential includes occult infection, breakthrough pain, exacerbation of chronic pain, UTI amongst others. She denies any recent trauma. Patient will have evaluation with labs, chest x-ray EKG. The patient will be treated with gentle IV hydration and analgesia. Her physician is contacted to see if he requests her to be admitted. Labs with low potassium and slightly elevated sodium. Xray 08/09 reviewed: Impression: Progressive chronic abnormality of the right hip,, presumably related to chronic subluxation, secondary degenerative change, and degenerative remodeling, as described Postsurgical changes, as described No definite acute abnormality Dr. Cervantes says out of town and surgery not scheduled. Dr. Live states not scheduled for surgery. Dr. Graves states will treat as outpatient. Potassium given. Tolerating oral intake well. Patient improved. Discussed that surgery had not been scheduled. Patient stable for outpatient observation and treatment. Laboratory Tests Test 08/14/18 19:00 White Blood Count 7.1 K/UL (4.8-10.8) Red Blood Count 4.60 M/UL (4.20-5.40) Hemoglobin 10.3 G/DL (12.0-16.0) L Hematocrit 33.5 % (37.0-47.0) L Mean Corpuscular Volume 73 FL (80-99) L Mean Corpuscular Hemoglobin 22.5 PG (27.0-31.0) L Mean Corpuscular Hemoglobin Concent 30.9 G/DL (32.0-36.0) L Red Cell Distribution Width 16.2 % (11.6-14.8) H Platelet Count 257 K/UL (150-450) Mean Platelet Volume 6.4 FL (6.5-10.1) L Neutrophils (%) (Auto) 56.2 % (45.0-75.0) Lymphocytes (%) (Auto) 33.9 % (20.0-45.0) Monocytes (%) (Auto) 6.1 % (1.0-10.0) Eosinophils (%) (Auto) 2.8 % (0.0-3.0) Basophils (%) (Auto) 1.0 % (0.0-2.0) Prothrombin Time 10.2 SEC (9.30-11.50) Prothrombin Time INR 1.0 (0.9-1.1) PTT 27 SEC (23-33) Sodium Level 146 MMOL/L (136-145) H Potassium Level 3.0 MMOL/L (3.5-5.1) L Chloride Level 112 MMOL/L (98-107) H Carbon Dioxide Level 24 MMOL/L (21-32) Anion Gap 10 mmol/L (5-15) Blood Urea Nitrogen 9 mg/dL (7-18) Creatinine 0.7 MG/DL (0.55-1.30) Estimate Glomerular Filtration Rate > 60 mL/min (>60) Glucose Level 107 MG/DL (74-106) H Calcium Level 9.0 MG/DL (8.5-10.1) Total Bilirubin 0.2 MG/DL (0.2-1.0) Aspartate Amino Transferase (AST) 5 U/L (15-37) L Alanine Aminotransferase (ALT) 12 U/L (12-78) Alkaline Phosphatase 56 U/L (46-116) Total Protein 6.5 G/DL (6.4-8.2) Albumin 3.0 G/DL (3.4-5.0) L Globulin 3.5 g/dL Albumin/Globulin Ratio 0.9 (1.0-2.7) L EKG Diagnostic Results Rate: normal Rhythm: NSR ST Segments: no acute changes - LVH and pac Rhythm Strip Diag. Results EP Interpretation: yes Rhythm: NSR, no PVC's, no ectopy Chest X-Ray Diagnostic Results Chest X-Ray Diagnostic Results : Chest X-Ray Ordered: Yes # of Views/Limited/Complete: 1 View Indication: Other EP Interpretation: Yes Interpretation: no consolidation, no effusion, no pneumothorax, other - inc cor Impression: Other Electronically Signed by: Electronically signed by Guillermo Poole MD Other X-Ray Diagnostic Results Other X-Ray Diagnostic Results : X-Ray ordered: see above Last Vital Signs Date Time Temp Pulse Resp B/P (MAP) Pulse Ox O2 Delivery O2 Flow Rate FiO2 08/14/18 20:58 97.0 93 15 155/75 99 Room Air Status: improved Disposition: XFER SNF Condition: Improved Scripts Potassium Chloride (KLOR-CON) 20 Meq Packet 20 MEQ ORAL DAILY, #7 PKT 0 Refills Prov: Guillermo Poole MD 08/14/18 Ondansetron Odt* (ZOFRAN ODT*) 4 Mg Tab.rapdis 4 MG BC EVERY 8 HOURS, #6 TAB 0 Refills Prov: Guillermo Poole MD 08/14/18 Guillermo Poole MD Aug 14, 2018 17:51
[2018-08-14] MEDS ORDERED: HYDROmorphone 1mg/ml Carpuject IM ONE ×2 (18:00→21:15)
--- NOTE | 2018-08-14 19:02 | NUR ---
ED Nurse Note: brought in by ambulance from the [facility] due to chronic right hip/leg pain. Per patient, patient has pending surgery scheduled on 08/15/2018.
[2018-08-14 19:35] VITALS: BP 149/78
[2018-08-14 19:42] LABS: EOSINOPHILS % (AUTO) 2.8 % (0.0-3.0); HEMATOCRIT 33.5 % (37.0-47.0); HEMOGLOBIN 10.3 G/DL (12.0-16.0); LYMPHOCYTES % (AUTO) 33.9 % (20.0-45.0); MEAN CORPUSCULAR VOLUME 73 FL (80-99); MONOCYTES % (AUTO) 6.1 % (1.0-10.0); NEUTROPHILS % (AUTO) 56.2 % (45.0-75.0); PLATELET COUNT 257 K/UL (150-450); RED CELL DISTRIBUTION WIDTH 16.2 % (11.6-14.8); WHITE BLOOD COUNT 7.1 K/UL (4.8-10.8)
[2018-08-14 19:46] LABS: ANION GAP 10 mmol/L (5-15); BLOOD UREA NITROGEN 9 mg/dL (7-18); CARBON DIOXIDE 24 MMOL/L (21-32); CHLORIDE 112 MMOL/L (98-107); CREATININE 0.7 MG/DL (0.55-1.30); SODIUM 146 MMOL/L (136-145)
[2018-08-14 19:51] LABS: ALANINE AMINOTRANSFERASE 12 U/L (12-78); ALBUMIN/GLOBULIN RATIO 0.9 (1.0-2.7); ALKALINE PHOSPHATASE 56 U/L (46-116); ASPARTATE AMINO TRANSFERASE 5 U/L (15-37); BILIRUBIN,TOTAL 0.2 MG/DL (0.2-1.0)
--- NOTE | 2018-08-14 20:00 | NUR ---
ED Nurse Note: PT refused to provide urine.
[2018-08-14] MEDS ORDERED: ONDANSETRON ODT4 MG BC (20:34)
[2018-08-14] MEDS ORDERED: KLOR-CON20 MEQ ORAL (20:34)
--- NOTE | 2018-08-14 20:36 | NUR ---
Spoke with Mario at [facility]- aware of patients return back home by ambulance. Spoke with Brianda at [facility]- ETA 21:00.
[2018-08-14 20:58] VITALS: BP_SYST 150; BP_SYST 155; BP_DIAS 70; BP_DIAS 75
--- NOTE | 2018-08-14 20:58 | NUR ---
ER DISCHARGE NOTE: Patient is cleared to be discharged per ERMD, pt is aox4, on room air, with stable vital signs. pt was given dc and prescription instructions, pt was able to verbalize understanding, pt id band removed without complications. pt is able to ambulate with steady gait. pt took all belongings. no IV site was established during ER stay.
[2018-08-14] MEDS ORDERED: DiphenhydrAMINE 50mg/ml Inj IM ONE (21:15)
--- NOTE | 2018-08-15 12:58 | Diagnostic Imaging Report ---
Indication: Pain Technique: One view of the chest Comparison: 08/09/2018 Findings: Patient's chin obscures the upper mediastinum. The heart is borderline enlarged. The lungs and pleural spaces are clear. No significant interim change Impression: No acute process
== END 2018-08-14 20:58 ==
LOC: EDBD 17:26 → EMR 18:01
DX: M25.551 Pain in right hip (principal); G89.29 Other chronic pain; E87.6 Hypokalemia; E66.3 Overweight; Z68.34 Body mass index [BMI] 34.0-34.9, adult; Z88.0 Allergy status to penicillin; F17.200 Nicotine dependence, unspecified, uncomplicated; J44.9 Chronic obstructive pulmonary disease, unspecified; E11.9 Type 2 diabetes mellitus without complications; Z86.73 Personal history of transient ischemic attack (TIA), and cerebral infarction without residual deficits
CPT/HCPCS: 36415; 71045; 80053; 85025; 85610; 85730; 86900; 86901; 93005; 96372; 96374; 96375; 99284; J1170; J1200; J8499

== ENCOUNTER 2018-08-26 14:13 | Emergency (ER) | payer OTHER ==
[~2018-08-26] VITALS: Ht 162.6 cm; Wt 72.6 kg
[~2018-08-26 14:13] MED LIST changes: +HYDROCODON-ACE1 EA13 ORAL; +KLOR-CON20 MEQ ORAL; +ONDANSETRON ODT4 MG BC
[2018-08-26 14:25] VITALS: BP 135/81
[2018-08-26] MEDS ORDERED: Albuterol ud Inhalation HHN SCH (14:30)
[2018-08-26] MEDS ORDERED: Solu-MEDROL 125mg Inj IVP ONE (14:30)
[2018-08-26] MEDS ORDERED: Ipratropium 0.02% Inh Soln 2.5ml UD HHN SCH (14:30)
[2018-08-26] MEDS ORDERED: Morphine Sulfate 4mg/ml Inj (IV USE ONLY) IVP ONE (14:30)
[2018-08-26] MEDS ORDERED: Heparin1,000 units/500ml Premix(Conc:2 units/ml) IV ONE ×2 (14:45→16:00)
[2018-08-26] MEDS ORDERED: Lidocaine 1% Plain 30 ml INJ ONE ×2 (14:45→16:00)
--- NOTE | 2018-08-26 15:44 | Diagnostic Imaging Report ---
Indication: Chest pain Comparison: 08/14/2018 A single view chest radiograph was obtained. Findings: Heart is mildly enlarged. The lungs are clear with no definite infiltrate or edema. Cervical fusion hardware noted. Bones are osteopenic. IMPRESSION: No acute cardiopulmonary disease
[2018-08-26] MEDS ORDERED: GABAPENTIN600 MG ORAL (16:08)
[2018-08-26] MEDS ORDERED: QUETIAPINE FUMA50 MG ORAL (16:08)
--- NOTE | 2018-08-26 16:19 | Emergency Room Report ---
History of Present Illness General Chief Complaint: Chest Pain Source: Patient, Medical Record Present Illness HPI 63-year-old female presents ED for evaluation. Patient brought in by EMS from nursing home facility. Complaining of chest pain and shortness of breath starting today. History of COPD. Pain is sharp, midsternal, 7 out of 10, nonradiating. Denies cough. Also complaining of right hip pain. 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 Is supposed to have surgery but has not been scheduled yet. No other aggravating relieving factors. Denies any other associated symptoms Allergies: Coded Allergies: ORANGE (Verified Allergy, Severe, Anaphylaxis, 06/06/18) PENICILLINS (Unverified Allergy, Unknown, 10/05/17) Patient History Past Medical History: DM, HTN, asthma, COPD, CVA/TIA Past Surgical History: none Pertinent Family History: none Social History: Denies: smoking, alcohol use, drug use Now: No Immunizations: UTD Reviewed Nursing 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: PMH: Agreed; PSxH: Agreed Nursing 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-PMH Past Medical History: No History, Except For Hx Cardiac Problems: Yes Hx Hypertension: Yes Hx Pacemaker: No Hx Asthma: Yes Hx COPD: Yes Hx Diabetes: Yes Hx Cancer: No Hx Gastrointestinal Problems: No Hx Dialysis: No Hx Neurological Problems: Yes Hx Cerebrovascular Accident: Yes Hx Seizures: No Review of Systems All Other Systems: negative except mentioned in HPI Physical Exam Vital Signs Date Time Temp Pulse Resp B/P (MAP) Pulse Ox O2 Delivery O2 Flow Rate FiO2 08/26/18 14:17 98.1 83 16 127/77 93 Room Air 08/26/18 14:54 21 Sp02 EP Interpretation: reviewed, normal General Appearance: no apparent distress, alert, GCS 15, non-toxic Head: normocephalic, atraumatic Eyes: bilateral eye normal inspection, bilateral eye PERRL ENT: hearing grossly normal, normal pharynx, no angioedema, normal voice Neck: full range of motion, supple/symm/no masses Respiratory: chest non-tender, normal breath sounds, speaking full sentences, wheezing Cardiovascular #1: regular rate, rhythm, no edema Cardiovascular #2: 2+ carotid (R), 2+ carotid (L), 2+ radial (R), 2+ radial (L) , 2+ dorsalis pedis (R), 2+ dorsalis pedis (L) Gastrointestinal: normal bowel sounds, soft, non-distended, no guarding, no rebound, tenderness - R hip Rectal: deferred Genitourinary: normal inspection, no CVA tenderness Musculoskeletal: back normal, gait/station normal, normal range of motion, non- tender Neurologic: alert, oriented x3, responsive, motor strength/tone normal, sensory intact, speech normal Psychiatric: judgement/insight normal, memory normal, mood/affect normal, no suicidal/homicidal ideation Reflexes: 3+ bicep (R), 3+ bicep (L), 3+ tricep (R), 3+ tricep (L), 3+ knee (R) , 3+ knee (L) Skin: normal color, no rash, warm/dry, well hydrated Lymphatic: no adenopathy Medical Decision Making Diagnostic Impression: Primary Impression: COPD (chronic obstructive pulmonary disease) Qualified Codes: J44.9 - Chronic obstructive pulmonary disease, unspecified Additional Impressions: Chronic hip pain Qualified Codes: M25.559 - Pain in unspecified hip; G89.29 - Other chronic pain ACS (acute coronary syndrome) ER Course Hospital Course 63-year-old F presenting to ED with SOB. h/o COPD Differential diagnoses include: Pneumonia, CHF exacerbation, pneumothorax, fluid overload Clinical course Patient placed on stretcher. On monitoring and evaluation advisor with stable vitals. After initial history and physical, I ordered nebulizer treatments. I ordered labs, IV fluids, EKG, chest x-ray, blood cultures, UA. Patient is known difficult IV access. Normally gets PICC line. PICC line ordered here and placed in ED Labs - no leukocytosis noted, hemoglobin/hematocrit stable, electrolytes okay, lactate okay, troponins negative CXR - hyperinflated lungs. no infiltrates EKG - NSR, no acute ischemic changes interpreted by me Aspirin given. Antibiotics given Because of insurance patient will be transferred I feel this is a highly complex case requiring extensive working including EKG/ Rhythm strip, Xray/CT/US, Blood/urine lab work, repeat exams while in ED, and administration of strong opiates/narcotics for pain control, admission to hospital or close patient follow up. Diagnosis - COPD exacerbation, chronic hip pain, ACS transferred in serious condition Labs Test 08/26/18 16:14 White Blood Count 8.5 K/UL (4.8-10.8) Red Blood Count 4.80 M/UL (4.20-5.40) Hemoglobin 10.9 G/DL (12.0-16.0) Hematocrit 34.5 % (37.0-47.0) Mean Corpuscular Volume 72 FL (80-99) Mean Corpuscular Hemoglobin 22.6 PG (27.0-31.0) Mean Corpuscular Hemoglobin Concent 31.5 G/DL (32.0-36.0) Red Cell Distribution Width 15.3 % (11.6-14.8) Platelet Count 295 K/UL (150-450) Mean Platelet Volume 6.6 FL (6.5-10.1) Neutrophils (%) (Auto) 60.9 % (45.0-75.0) Lymphocytes (%) (Auto) 28.0 % (20.0-45.0) Monocytes (%) (Auto) 7.7 % (1.0-10.0) Eosinophils (%) (Auto) 2.5 % (0.0-3.0) Basophils (%) (Auto) 0.9 % (0.0-2.0) Sodium Level 137 MMOL/L (136-145) Potassium Level 3.6 MMOL/L (3.5-5.1) Chloride Level 102 MMOL/L (98-107) Carbon Dioxide Level 23 MMOL/L (21-32) Anion Gap 12 mmol/L (5-15) Blood Urea Nitrogen 7 mg/dL (7-18) Creatinine 0.6 MG/DL (0.55-1.30) Estimat Glomerular Filtration Rate > 60 mL/min (>60) Glucose Level 104 MG/DL (74-106) Lactic Acid Level 0.70 mmol/L (0.4-2.0) Calcium Level 9.1 MG/DL (8.5-10.1) Total Bilirubin 0.3 MG/DL (0.2-1.0) Aspartate Amino Transf (AST/SGOT) 11 U/L (15-37) Alanine Aminotransferase (ALT/SGPT) 11 U/L (12-78) Alkaline Phosphatase 65 U/L (46-116) Total Creatine Kinase 26 U/L (26-308) Creatine Kinase MB < 0.5 NG/ML (0.0-3.6) Creatine Kinase MB Relative Index 1.9 Troponin I 0.000 ng/mL (0.000-0.056) Pro-B-Type Natriuretic Peptide 42 pg/mL (0-125) Total Protein 7.4 G/DL (6.4-8.2) Albumin 3.2 G/DL (3.4-5.0) Globulin 4.2 g/dL Albumin/Globulin Ratio 0.8 (1.0-2.7) EKG Diagnostic Results Rate: normal Rhythm: NSR ST Segments: no acute changes ASA given to the pt in ED: Yes Rhythm Strip Diag. Results EP Interpretation: yes Rhythm: NSR, no PVC's, no ectopy Chest X-Ray Diagnostic Results Chest X-Ray Diagnostic Results : Chest X-Ray Ordered: Yes # of Views/Limited/Complete: 1 View Indication: Shortness of Breath EP Interpretation: Yes Interpretation: no consolidation, no effusion, no pneumothorax, no acute cardiopulmonary disease Impression: No acute disease Last Vital Signs Date Time Temp Pulse Resp B/P (MAP) Pulse Ox O2 Delivery O2 Flow Rate FiO2 08/26/18 15:22 81 19 100 Room Air 21 08/26/18 14:25 98.0 135/81 Status: improved Disposition: XFER SHT-TRM HOSP Condition: Serious Referrals: Reymundo Graves DO (PCP) Jelani Loja MD Aug 26, 2018 16:19
[2018-08-26 16:30] VITALS: BP 133/71
[2018-08-26] MEDS ORDERED: Hydromorphone 0.5mg/0.5ml inj IVP ONE ×2 (16:30→18:30)
[2018-08-26] MEDS ORDERED: DiphenhydrAMINE 50mg/ml Inj IVP ONE (16:30)
[2018-08-26 16:33] LABS: BASOPHILS % (AUTO) 0.9 % (0.0-2.0); EOSINOPHILS % (AUTO) 2.5 % (0.0-3.0); HEMATOCRIT 34.5 % (37.0-47.0); HEMOGLOBIN 10.9 G/DL (12.0-16.0); MEAN CORPUSCULAR VOLUME 72 FL (80-99); MONOCYTES % (AUTO) 7.7 % (1.0-10.0); NEUTROPHILS % (AUTO) 60.9 % (45.0-75.0); PLATELET COUNT 295 K/UL (150-450); RED CELL DISTRIBUTION WIDTH 15.3 % (11.6-14.8); WHITE BLOOD COUNT 8.5 K/UL (4.8-10.8)
[2018-08-26] MEDS ORDERED: Solu-MEDROL 125mg Inj ONE (16:36)
--- NOTE | 2018-08-26 16:38 | Diagnostic Imaging Report ---
Indication: intermediate frame tender venous access Findings: After the indications, procedure, risks, complications, and alternatives of the procedure were explained, written informed consent was obtained. The right upper extremity was prepped with alcohol. All elements of maximal sterile barrier technique were followed including usage of a cap, mask, sterile gown, sterile gloves, hand hygiene and a large sterile sheet. Sonographic evaluation of the upper extremity was performed demonstrating a patent and compressible brachial vein. Access was obtained under real-time ultrasound guidance (with utilization of sterile gel and sterile probe cover) and digital image was saved and archived. An .018 wire was introduced. Needle exchanged for a 5 [place] peel-away sheath. Measurements were obtained. A 5 [place] dual-lumen Power PICC line catheter was cut to 35 cm and introduced over the wire. Peel-away sheath and wire were removed.Catheter was secured to the skin using 2-0 Prolene suture. Both ports aspirate and flush easily. Post procedure chest x-ray demonstrates good position of the PICC line catheter within the SVC. Impression: Successful placement of an upper extremity PICC line catheter
[2018-08-26 16:57] LABS: ANION GAP 12 mmol/L (5-15); BLOOD UREA NITROGEN 7 mg/dL (7-18); CALCIUM 9.1 MG/DL (8.5-10.1); CARBON DIOXIDE 23 MMOL/L (21-32); CHLORIDE 102 MMOL/L (98-107); CREATININE 0.6 MG/DL (0.55-1.30); POTASSIUM 3.6 MMOL/L (3.5-5.1); SODIUM 137 MMOL/L (136-145)
[2018-08-26 17:11] LABS: ALANINE AMINOTRANSFERASE 11 U/L (12-78); ALBUMIN 3.2 G/DL (3.4-5.0); ALBUMIN/GLOBULIN RATIO 0.8 (1.0-2.7); ALKALINE PHOSPHATASE 65 U/L (46-116); ASPARTATE AMINO TRANSFERASE 11 U/L (15-37); BILIRUBIN,TOTAL 0.3 MG/DL (0.2-1.0); CKMB < 0.5 NG/ML (0.0-3.6); CREATINE KINASE 26 U/L (26-308)
[2018-08-26 18:09] VITALS: BP 123/66
[2018-08-26 18:26] VITALS: BP 116/68
[2018-08-26] MEDS ORDERED: Hydromorphone 0.5mg/0.5ml inj ONE (18:30)
[2018-08-26] MEDS ORDERED: Dyna-Hex 2% Top Sol 2oz TOPIC SCH (20:00)
== END 2018-08-26 18:40 | disposition short-term general hospital (02) ==
LOC: EDUNIT# 14:13 → EDBD 14:13 → EDBEDREQ 14:28 → EMR 14:45
DX: J44.9 Chronic obstructive pulmonary disease, unspecified (principal); I10 Essential (primary) hypertension; E11.9 Type 2 diabetes mellitus without complications; G89.29 Other chronic pain; M25.551 Pain in right hip; Z88.0 Allergy status to penicillin; Z86.73 Personal history of transient ischemic attack (TIA), and cerebral infarction without residual deficits
CPT/HCPCS: 36569; 71045; 76937; 80053; 82550; 82553; 83605; 83880; 84484; 85025; 87040; 94640; 94664; 96365; 96374; 96375; 96376; 99285; J1170; J1200; J1644; J1956; J2001; J2930; J7040; 36415; 93005

== ENCOUNTER 2018-12-01 18:09 | Emergency (ER) | payer OTHER ==
[~2018-12-01] VITALS: Ht 162.6 cm; Wt 63.5 kg
[~2018-12-01 18:09] MED LIST changes: +GABAPENTIN600 MG ORAL
--- NOTE | 2018-12-01 18:20 | Emergency Room Report ---
History of Present Illness General Chief Complaint: Chest pain Source: Patient Present Illness HPI Is a 63-year-old female presented after increased right lower extremity pain. Patient reports having a total hip replacement 3 weeks ago. 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 She reports having some continued pain to her site of surgery. Patient states that this had worsened over the past few days. She reports having some slight increased swelling. She had been staying at home. Allergies: Coded Allergies: ORANGE (Verified Allergy, Severe, Anaphylaxis, 06/06/18) PENICILLINS (Unverified Allergy, Unknown, 10/05/17) Patient History Past Medical History: see triage record, COPD Reviewed Nursing 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: PMH: Agreed; PSxH: Agreed Nursing 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-PMH Hx Cardiac Problems: Yes Hx Hypertension: Yes Hx Pacemaker: No Hx Asthma: Yes Hx COPD: Yes Hx Diabetes: Yes Hx Cancer: No Hx Gastrointestinal Problems: No Hx Dialysis: No Hx Neurological Problems: Yes Hx Cerebrovascular Accident: Yes Hx Seizures: No Review of Systems All Other Systems: negative except mentioned in HPI Physical Exam Sp02 EP Interpretation: reviewed, normal General Appearance: normal inspection, no apparent distress, alert, GCS 15, Chronically Ill Head: atraumatic ENT: normal ENT inspection, hearing grossly normal, normal voice Neck: normal inspection, full range of motion, supple, no bony tend Respiratory: normal inspection, no respiratory distress, no retraction, wheezing Cardiovascular #1: regular rate, rhythm, no edema Gastrointestinal: normal inspection, normal bowel sounds, non tender, soft, no guarding, no hernia Genitourinary: no CVA tenderness Musculoskeletal: back normal, decreased range of motion Neurologic: normal inspection, alert, oriented x3, responsive, fountain supervisor III-XII nml as tested, speech normal Psychiatric: normal inspection, judgement/insight normal, mood/affect normal Skin: well hydrated Medical Decision Making Diagnostic Impression: Primary Impression: COPD (chronic obstructive pulmonary disease) Additional Impression: Chronic hip pain ER Course Patient presented for chest pain. Differential diagnosis included but was not limited to acute coronary syndrome, pulmonary embolism, pneumonia, aortic dissection, shingles, pneumothorax, aortic dissection, esophageal rupture, pericarditis. Patient was noted to have recent orthopedic surgery as well as right lower extremity pain. Duplex ultrasound showed no apparent DVT. Patient was noted to have chronic pain and was given Percocet. She initially requested stronger narcotics however I do not feel that this is indicated at this time. Patient was given prescription for short course of pain medications. She was advised to follow up with Dr. Graves. Labs Test 12/01/18 18:21 White Blood Count 6.9 K/UL (4.8-10.8) Red Blood Count 5.38 M/UL (4.20-5.40) Hemoglobin 11.9 G/DL (12.0-16.0) Hematocrit 39.5 % (37.0-47.0) Mean Corpuscular Volume 73 FL (80-99) Mean Corpuscular Hemoglobin 22.2 PG (27.0-31.0) Mean Corpuscular Hemoglobin Concent 30.2 G/DL (32.0-36.0) Red Cell Distribution Width 17.2 % (11.6-14.8) Platelet Count 351 K/UL (150-450) Mean Platelet Volume 7.1 FL (6.5-10.1) Neutrophils (%) (Auto) 56.0 % (45.0-75.0) Lymphocytes (%) (Auto) 33.1 % (20.0-45.0) Monocytes (%) (Auto) 7.2 % (1.0-10.0) Eosinophils (%) (Auto) 2.7 % (0.0-3.0) Basophils (%) (Auto) 1.1 % (0.0-2.0) Prothrombin Time 10.1 SEC (9.30-11.50) Prothromb Time International Ratio 0.9 (0.9-1.1) Activated Partial Thromboplast Time 26 SEC (23-33) D-Dimer 1.91 mg/L FEU (0.00-0.49) Sodium Level 146 MMOL/L (136-145) Potassium Level 3.5 MMOL/L (3.5-5.1) Chloride Level 109 MMOL/L (98-107) Carbon Dioxide Level 23 MMOL/L (21-32) Anion Gap 14 mmol/L (5-15) Blood Urea Nitrogen 9 mg/dL (7-18) Creatinine 0.7 MG/DL (0.55-1.30) Estimat Glomerular Filtration Rate > 60 mL/min (>60) Glucose Level 94 MG/DL (74-106) Calcium Level 10.1 MG/DL (8.5-10.1) Total Bilirubin 0.3 MG/DL (0.2-1.0) Aspartate Amino Transf (AST/SGOT) 5 U/L (15-37) Alanine Aminotransferase (ALT/SGPT) 13 U/L (12-78) Alkaline Phosphatase 77 U/L (46-116) Troponin I 0.000 ng/mL (0.000-0.056) Total Protein 8.2 G/DL (6.4-8.2) Albumin 3.7 G/DL (3.4-5.0) Globulin 4.5 g/dL Albumin/Globulin Ratio 0.8 (1.0-2.7) Status: improved Disposition: HOME, SELF-CARE Condition: Stable Scripts Oxycodone/Acetaminophen 5-325* (PERCOCET 5-325 MG TABLET*) 1 Each Tablet 1 TAB ORAL Q4H PRN for For Pain, #10 TAB 0 Refills Prov: Jass Gonzalez MD 12/01/18 Jass Gonzalez MD Dec 01, 2018 18:20
[2018-12-01] MEDS ORDERED: Albuterol/Ipratropium 3ml neb HHN ONE (18:30)
[2018-12-01 18:34] VITALS: BP 185/125
[2018-12-01 18:41] LABS: BASOPHILS % (AUTO) 1.1 % (0.0-2.0); EOSINOPHILS % (AUTO) 2.7 % (0.0-3.0); HEMATOCRIT 39.5 % (37.0-47.0); HEMOGLOBIN 11.9 G/DL (12.0-16.0); LYMPHOCYTES % (AUTO) 33.1 % (20.0-45.0); MEAN CORPUSCULAR VOLUME 73 FL (80-99); MONOCYTES % (AUTO) 7.2 % (1.0-10.0); PLATELET COUNT 351 K/UL (150-450); RED BLOOD COUNT 5.38 M/UL (4.20-5.40); RED CELL DISTRIBUTION WIDTH 17.2 % (11.6-14.8); WHITE BLOOD COUNT 6.9 K/UL (4.8-10.8)
--- NOTE | 2018-12-01 18:58 | NUR ---
ED Nurse Note: pt came in from home c/o chest pain and left hip pain ermd eval done blood sent unable to establish a line pt hard stick multiple staff attempted ermd aware.
[2018-12-01 19:01] LABS: ANION GAP 14 mmol/L (5-15); BLOOD UREA NITROGEN 9 mg/dL (7-18); CALCIUM 10.1 MG/DL (8.5-10.1); CARBON DIOXIDE 23 MMOL/L (21-32); CHLORIDE 109 MMOL/L (98-107); CREATININE 0.7 MG/DL (0.55-1.30); POTASSIUM 3.5 MMOL/L (3.5-5.1); SODIUM 146 MMOL/L (136-145)
--- NOTE | 2018-12-01 19:01 | NUR ---
HAND-OFF: Report given to Jazlyn DREW.
[2018-12-01 19:03] LABS: INR 0.9 (0.9-1.1)
[2018-12-01 19:05] LABS: ALANINE AMINOTRANSFERASE 13 U/L (12-78); ALBUMIN 3.7 G/DL (3.4-5.0); ALBUMIN/GLOBULIN RATIO 0.8 (1.0-2.7); ALKALINE PHOSPHATASE 77 U/L (46-116); ASPARTATE AMINO TRANSFERASE 5 U/L (15-37); BILIRUBIN,TOTAL 0.3 MG/DL (0.2-1.0)
--- NOTE | 2018-12-01 19:20 | NUR ---
ED Nurse Note: Patient refused Percoset PO, asking for pain meds IM. Percoset was returned to [facility].
[2018-12-01] MEDS ORDERED: PERCOCET 5-3251 EACH ORAL (21:16)
[2018-12-01 21:25] VITALS: BP 185/125
--- NOTE | 2018-12-01 21:25 | NUR ---
ED Nurse Note: Pt cleared by health care Provider for discharge. DC instructions/prescription was given and explained to pt and verbalized understanding of teachings. All medical deviecs such as ID band removed. Pt is AAO x4, ambulatory and left with all personal belongings.
--- NOTE | 2018-12-02 11:55 | Diagnostic Imaging Report ---
Indication: Right lower extremity pain and swelling. Technique: Duplex Doppler imaging performed from the right common femoral vein to the popliteal vein. FINDINGS: Normal compressibility demonstrated from the common femoral vein to the popliteal vein. Respiratory phasicity and good augmentation demonstrated on waveform analysis. There is no evidence of thrombosis. IMPRESSION: No evidence of deep venous thrombosis within the right lower extremity.
--- NOTE | 2018-12-02 13:55 | Diagnostic Imaging Report ---
Indications: hip pain Findings: Two views of the right hip were obtained. There is a right hip prosthesis. There is no fracture or malalignment. Extensive lower lumbar fusion hardware and the instrumented fusion of the sacroiliac joints noted. The bones are osteopenic. IMPRESSION: No acute injury appreciated
== END 2018-12-01 21:25 | disposition home or self-care (01) ==
LOC: EMR 18:34
DX: J44.9 Chronic obstructive pulmonary disease, unspecified (principal); M25.551 Pain in right hip; G89.29 Other chronic pain; Z88.0 Allergy status to penicillin; Z91.018 Allergy to other foods; I10 Essential (primary) hypertension; E11.9 Type 2 diabetes mellitus without complications; Z86.73 Personal history of transient ischemic attack (TIA), and cerebral infarction without residual deficits
CPT/HCPCS: 36415; 80053; 82962; 84484; 85025; 85379; 85610; 85730; 93005; 93971; 94640; 94664; 99284; J7620